=== PATIENT | male | born 1945 | race Caucasian/White ===

== ENCOUNTER 2017-06-05 11:23 | Outpatient (CLI) | payer OTHER, MEDICARE | END 2017-06-05 11:24 | disposition home or self-care (01) | LOC: BICRAD 11:23 | PROVIDERS: ATTEND Internal Medicine Cardiovascular Disease | DX: J90 Pleural effusion, not elsewhere classified (principal) | CPT/HCPCS: 71046 ==

== ENCOUNTER 2018-01-02 13:11 | Outpatient (CLI) | payer MEDICARE, OTHER ==
--- NOTE | 2018-01-02 15:15 | RAD ---
CHEST TWO VIEWS: 01/02/18 HISTORY: Dyspnea. COMPARISON: 06/05/17 FINDINGS: The cardiac silhouette remains enlarged. Pulmonary vasculature are unremarkable. Bilateral pleural fl uid, right greater than left, is similar in appearance to the previous exam. Mediastinum is midline. Lungs are hyperinflated. No evidence of pneumothorax. IMPRESSION: Cardiomegaly. Bilateral pleural fluid. Stable. COPD. POS: [facility]
== END 2018-01-02 13:12 | disposition home or self-care (01) ==
LOC: RAD 13:11
PROVIDERS: ATTEND Internal Medicine Pulmonary Disease
DX: R06.00 Dyspnea, unspecified (principal); I51.7 Cardiomegaly
CPT/HCPCS: 71046

== ENCOUNTER 2018-01-19 10:34 | Inpatient (IN) | payer MEDICARE ==
[2018-01-19 11:15] LABS: #Lymphocytes 0.7 thou/uL (1.20-3.40); #Monocytes 0.9 thou/uL (0.11-0.59); #Neutrophils 10.7 thou/uL (1.40-6.50); %Lymphocytes 5.4 % (21.0-51.0); %Monocytes 7.2 % (0.0-10.0); %Neutrophils 87.4 % (42.0-75.0); Hemoglobin 11.4 g/dL (14.0-18.0); Mean Corpuscular HGB CONC 31.1 g/dL (32.0-36.0); Mean Corpuscular Hemoglobin 29.1 pg (27.0-31.0); Mean Corpuscular Volume 93.6 fL (78.0-98.0); Mean Platelet Volume 7.2 fL (7.4-10.4); Platelet Count 357 thou/uL (130-400); RBC Distribution Width 12.5 % (11.5-14.5); Red Blood Cell (RBC) Count 3.91 mill/uL (4.70-6.10); White Blood Cell (WBC) Count 12.2 thou/uL (4.8-10.8)
--- NOTE | 2018-01-19 11:21 | RAD ---
CHEST ONE VIEW: HISTORY: Dyspnea. COMPARISON: 01/02/2018 FINDINGS: The cardiac silhouette is magnified, enlarged, and partially obscured by bilateral pleural fluid and bibasilar atelectasis that has increased since the prior exam. The mediastinum is midline. The pulm onary vasculature is engorged. No evidence of pneumothorax. IMPRESSION: Increasing pleural fluid and basilar atelectasis, right greater than left. POS: [facility]
[2018-01-19 11:41] LABS: ALT (SGPT) 11 U/L (8-55); AST (SGOT) 14 U/L (5-34); Albumin 3.1 g/dL (3.4-4.8); Alkaline Phosphatase 85 U/L (40-150); Anion Gap 14 mmol/L (10-20); BUN (Urea Nitrogen) 42 mg/dL (8.4-25.7); Bilirubin, Total 1.3 mg/dL (0.2-1.2); CK (CPK) 22 U/L (30-200); CKMB 1.8 ng/mL (0-6.6); Calc. Creatinine Clearance 0 mL/min (70-130); Calcium 9.4 mg/dL (7.8-10.44); Carbon Dioxide 31 mmol/L (23-31); Chloride 99 mmol/L (98-107); Estimated GFR-MDRD 71; Globulin 3.8 g/dL (2.4-3.5); Glucose 120 mg/dL (80-115); Potassium 4.1 mmol/L (3.5-5.1); Protein, Total 6.9 g/dL (5.8-8.1)
[2018-01-19 11:49] LABS: Troponin I 0.311 ng/mL (< 0.028)
[2018-01-19 11:57] LABS: Sodium 140 mmol/L (136-145)
[2018-01-19] MEDS ORDERED: Ondansetron ODT 4 MG TAB SL PRN (12:00)
[2018-01-19] MEDS ORDERED: Ondansetron HCl/PF 4 MG/2 ML Vial IVP PRN ×2 (12:00→15:39)
[2018-01-19] MEDS ORDERED: Acetaminophen 325 MG TAB PO PRN (12:00)
--- NOTE | 2018-01-19 13:41 | HP ---
PRIMARY CARE PHYSICIAN: Dr. Obi Silva REASON FOR ADMISSION: Elevated troponin, right pleural effusion. HISTORY OF PRESENT ILLNESS: A 72-year-old male who has underlying history of cardiomyopathy. In our hospital system last echocardiography was done in 2016 which showed EF 25-30%. The patient reports that this year he had echocardiography at Cardiology office, but he does not know the result, but he thinks that his heart is doing good. For the last one week he has increasing shortness of breath. He has increasing sore throat. He is c oughing white sputum. 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 The patient was supposed to see Cardiolo gy yesterday, but he was not able to go to the office because of sickness. For last one week he is not able to eat because of sore throat. He is feeling scratchy throat. He i s having cough productive of white sputum. He denies any chest pain, pleurisy. He denies any edema of leg. He does have chronic orthopnea. He does have chronic dyspnea on exertion. He lost a signif icant amount of weight over the last few months. He does have very poor appetite. He denies any age appropriate cancer screening. He lives alone by himself. He is driving. He is able to make food and do daily activities by himsel f. He denies any fever. He denies any bodyaches, malaise or arthralgia. He denies any sick exposur e. He denies any recent travel. He denies any hemoptysis. He denies any calf tenderness, dizziness , syncope or near syncope. The patient was feeling more and more weak and that is why he decided to come to the emergency room t bo[place], he has leukocytosis with left shift. He has significantly abnormal troponin and his chest x-ra y showed increasing pleural fluid and bibasilar atelectasis. PAST MEDICAL HISTORY: The patient denies any previous cancer history. He has cardiomyopathy with EF 25-30%, hypertension. PAST SURGICAL HISTORY: Reviewed and negative. PAST PSYCHIATRIC HISTORY: Reviewed and negative. SOCIAL HISTORY: The patient drinks beer occasionally, but based on previous record, he was drinking 5 beers on a daily basis, but he currently denies to me. He also denies any smoking to me as well, b ut based on previous record, he has smoking history. He is single and lives alone. ALLERGIES: No known drug allergy. CURRENT HOME MEDICATIONS: The patient did not bring any home medication, so unable to review at this point, but based on previous discharge summary, the patient was on following medications; Lasix 40 m g p.o. daily, Coreg 12.5 mg 3 times daily, lisinopril 5 mg p.o. daily, aspirin 81 mg p.o. daily. REVIEW OF SYSTEMS: The following complete review of systems was negative, unless otherwise mentioned in the HPI or below: Constitutional: Weight loss or gain, ability to conduct usual activities. Skin: Rash, itching. Eyes: Double vision, pain. ENT/Mouth: Nose bleeding, neck stiffness, pain, tenderness. Cardiovascular: Palpitations, dyspnea on exertion, orthopnea. Respiratory: Shortness of breath, wheezing, cough, hemoptysis, fever or night sweats. Gastrointestinal: Poor appetite, abdominal pain, heartburn, nausea, vomiting, constipation, or diarrhea. Genitourinary: Urgency, frequency, dysuria, nocturia. Musculoskeletal: Pain, swelling. Neurologic/Psychiatric: Anxiety, depression. Allergy/Immunologic: Skin rash, bleeding tendency. Please see my HPI for pertinent positive and negative. All other review of systems reviewed and nega tive except as mentioned in the HPI. FAMILY HISTORY: Mother from multiple medical problems, no strong family history of premature co ronary artery disease, stroke or cancer. EMERGENCY ROOM COURSE: The patient is given aspirin and DuoNeb therapy. PHYSICAL EXAMINATION: VITAL SIGNS: Currently, blood pressure 95/50, pulse 87, respiratory rate 17, temperature 98.1, satur ation 99% on 2 liter oxygen, weight 50 kilograms. GENERAL: The patient is currently cachectic, emaciated. HEENT: Head; normocephalic, atraumatic. Eyes shrunken eyeballs. ENT: Oropharynx within normal limits. Pharyngeal erythema noted. No exudate. NECK: Supple, no JVD, no thyromegaly. LUNGS: Right-sided air entry reduced with rales. CARDIAC: S1, S2 appears regular without any significant murmur. ABDOMEN: Soft, bowel sounds present, nontender, nondistended. No organomegaly, no mass. Scaphoid a bdomen. BACK: Unremarkable, no CVA tenderness. EXTREMITIES: Upper extremities; passive movement of all joints are normal. Lower extremities; passi ve movement of all joints are normal. No edema. Good distal pulsation. SKIN: No skin rash. HEMATOLOGICAL: No lymphadenopathy. PSYCHIATRIC: Normal affect. NEUROLOGIC: Nonfocal examination. SIGNIFICANT LABORATORY DATA: EKG showing first degree AV block, incomplete right bundle branch block pattern, nonspecific ST-T changes. Chest x-ray showing increasing pleural fluid and bibasilar atele ctasis, right greater than left. CBC: WBC 12.2, hemoglobin 11.4, platelet 357. BMP: Sodium 140, potassium 4.1, chloride 99, carbon dioxide 31, anion gap 14, BUN 42, creatinine 1.04, glucose 120, calcium 9.4. LFTs: AST 14, ALT 11, alkaline phosphatase 85, albumin 3.1. CK 22, CK-MB 1.8, troponin I 0.311. ASSESSMENT AND PLAN: 1. Dyspnea. At this point, suspected for acute on chronic systolic heart failure as well as associa teri underlying bibasilar pneumonia. The patient has cough. He has leukocytosis and bibasilar atelec tasis on x-ray concerning for pneumonia. He also has increasing pleural fluid consistent with previo us history of cardiomyopathy. At this point, we will treat him for pneumonia as well as congestive h eart failure. He does not have any significant fluid overload status clinically. We will consult pu lmonologist as well as manual lathe machinist for evaluation and to determine etiology of dyspnea will check BN P. Echocardiography 2. Elevated troponin, likely due to demand ischemia. We will do serial cardiac enzymes x3. Echocar diography will be obtained. Cardiology will be consulted and we will continue aspirin [address] 3. Chronic systolic heart failure, stage 3, NYHA stage 3. At this point, the patient has acute exac erbation. Echocardiography will be obtained. We will give him gentle diuretic therapy. Uric acid, magnesium and phosphorus level will be checked. We will closely monitor on telemetry floor. Cardiol jay will be consulted. 4. Protein calorie malnutrition, severe with cachexia. Etiology uncertain, but suspecting poor nutr itional insufficiency. We will check B12, folate, and we will provide nutritional supplement while i n hospital. 5. Deep venous thrombosis prophylaxis. Lovenox 30 mg subcutaneously daily. 6. Gastrointestinal prophylaxis, Pepcid 20 mg p.o. b.i.d. 7. CODE STATUS: The patient is FULL CODE. Patient's sister is surrogate decision maker. Disposition plan based on clinical course. We are expecting patient's stay in hospital more than 2 m idnights. Based on echocardiographic finding, we will decide whether this patient needs any further ischemic evaluation as well as AICD evaluation and Cardiology already consulted for that.
[2018-01-19 14:51] LABS: Troponin I 0.474 ng/mL (< 0.028)
[2018-01-19] MEDS ORDERED: Sodium Chloride 0.65% Nasal 44 ML BOT EA NARE PRN (15:39)
[2018-01-19] MEDS ORDERED: Calcium Carbonate 500 MG ChewTAB PO PRN (15:39)
[2018-01-19] MEDS ORDERED: Artificial Tears 18 DROP/0.9 ML EA EYE PRN (15:39)
[2018-01-19] MEDS ORDERED: Zolpidem Tartrate 5 MG TAB PO PRN (15:39)
[2018-01-19] MEDS ORDERED: Bisacodyl 10 MG SUPP PR PRN (15:39)
[2018-01-19] MEDS ORDERED: Ondansetron ODT 4 MG TAB PO PRN (15:39)
[2018-01-19] MEDS ORDERED: Diabetic Tussin 200 MG/10 ML UDCUP PO PRN (15:39)
[2018-01-19] MEDS ORDERED: Eucerin (Mineral Oil/Petrolatum,White) 30 gm Jar TOP PRN (15:39)
[2018-01-19] MEDS ORDERED: Bisacodyl 5 MG TAB PO PRN (15:39)
[2018-01-19] MEDS ORDERED: HYDROcodone/Acetaminophen 5/325 mg Tablet PO PRN (15:39)
[2018-01-19] MEDS ORDERED: hydrALAZINE 20 MG/ML VIAL SLOW IVP PRN (15:39)
[2018-01-19] MEDS ORDERED: Loperamide HCl 2 MG CAP PO PRN (15:39)
[2018-01-19 18:16] LABS: Troponin I 0.662 ng/mL (< 0.028)
[2018-01-19] MEDS: methylPREDNISolone Sod Succ/PF 125 MG/2 ML VIAL IVP SCH ×2 (18:56→23:50)
[2018-01-19] MEDS: Famotidine 20 MG TAB PO SCH (20:57)
[2018-01-19] MEDS ORDERED: Sodium Chloride 0.9% 500 ML IVPB SCH (22:00)
[2018-01-19] MEDS: Carvedilol 3.125 MG TAB PO SCH (22:33)
--- NOTE | 2018-01-19 23:07 | CON ---
DATE OF CONSULTATION: 01/19/2018 HISTORY OF PRESENT ILLNESS: A 72-year-old cachectic gentleman was seen in the office in the past, in fact no more than 2 weeks ago. X-ray at that time showed bilateral pleural effusion, right greater than left. Apparently, not worse than before. He presents now with shortness of breath, cough, no chest pain . He can barely walk 50 feet without getting marked short of breath. He has known history of congestiv e heart failure. PAST MEDICAL HISTORY: Pertinent mainly for his congestive heart failure symptoms. Ejection fraction to be decreased for years. PREVIOUS SURGERIES: None. TOBACCO: Noted former smoker. ALCOHOL: Minimal. MEDICATIONS: List of medicine from home includes Zestril 5, Lasix 40 and Coreg 6.25. REVIEW OF SYSTEMS: Otherwise, 10-point negative. PHYSICAL EXAMINATION: GENERAL: Cachectic gentleman in mild distress. VITAL SIGNS: Sats are 92%, respiration rate 18, temperature 98, blood pressure 80/51. CHEST: Decreased breath sounds, no wheezing. CARDIAC: Normal S1, S2, no gallops. ABDOMEN: Soft. No masses. LABORATORY DATA: White count 12,000, hemoglobin and hematocrit 11 and 36, platelet count is 357. So dium 140. Troponin is elevated. BUN and creatinine of 42 and 1.0. His BNP was not ordered, but he had an echo done. IMPRESSION: 1. Bilateral pleural effusions secondary to congestive heart failure and former smoker. 2. Cachexia. PLAN: 1. I agree with cardiac care. 2. Diuretics, lisinopril, Lasix. 3. Started on empiric antibiotics. I do not see any evidence of any infection, though we will follo w. At this stage, no need to do a thoracentesis. 4. I will start him on empiric neb treatments. 5. Low dose steroids. We will follow. Consultation note is 70 minutes, 50% in direct patient care.
[2018-01-19 23:43] LABS: Critical Call Chem Troponin I RESULT DECREASING; Troponin I 0.624 ng/mL (< 0.028)
--- NOTE | 2018-01-20 02:52 | CON ---
DATE OF CONSULTATION: 01/19/2018 INDICATION FOR CONSULTATION: A 72-year-old patient with COPD and CHF exacerbation. HISTORY OF PRESENT ILLNESS: This very unfortunate 72-year-old gentleman who has a history of severe cardiomyopathy. His most recent echocardiogram was less than 6 months ago which showed ejection frac tion 25-30%, which has been relatively stable for the last couple of years. He has had discussions a bout AICD and he has refused to accept this. He also, I believe, has been suggested that he undergo cardiac catheterization again. He also has chronic bilateral pleural effusions. At this time, he ag ain presented after he has had a recent sore throat and increasing shortness of breath with coughing. He said he actually has a rapid respiratory rate but did not have home O2. His oxygen level has be en relatively good. When he last saw Dr. Schreiber in the office, his O2 saturations were in the high 90s and he has had no significant problems otherwise and is not on home O2. He lives alone. He still m anages to take care of himself. He denied any other significant problems. He did smoke in the past, but stopped a couple of years ago, but otherwise was doing relatively well. He also drank heavily i n the past. He no longer drinks or smokes. He does have a history of hypertension. He has had some problems with edema in the past in the lower extremities, but he has no edema at this time. He main ly is just complaining of the shortness of breath. He also has what appears to be significant periph eral vascular disease. PAST MEDICAL HISTORY: Significant for the cardiomyopathy, hypertension, COPD, bilateral pleural effu sions. SOCIAL HISTORY: He lives alone. He had a drink in the past relatively heavy as well as tobacco abus e, but he no longer does this. He just retired earlier this year from . ALLERGIES: None. MEDICATIONS: Include Lasix 40 mg a day, lisinopril 5 mg a day, aspirin 81 mg a day, and Coreg 12.5 m g 3 times a day prior to him being admitted to the hospital. At this time, he has been placed on ant ibiotics. He is on Coreg 3.125 mg b.i.d. as well as vitamins, Lovenox at a DVT prophylaxis dose. He is on Pepcid, Folvite, IV Lasix 20 mg, albuterol, ipratropium inhaler, lisinopril 2.5 mg a day, mult ivitamins, Tylenol and p.r.n. medications. He is also just taking p.r.n. medications other than the ones that have already been written there. For his other past medical history, social history, family history and review of systems, please refe r to the notes dictated by the nurse practitioner. PHYSICAL EXAMINATION: GENERAL: Reveals an elderly, emaciated patient who appears to be very cachectic. VITAL SIGNS: His blood pressure is 85/51. O2 saturation 99%. He is on 2 liters, respiratory rate i s 18, heart rate is 75 shows a normal sinus rhythm. He is afebrile. HEENT: Shows head to be normocephalic and atraumatic. He has poor dentition. Carotid pulses are pr esent. I did not hear any significant bruits. LUNGS: His chest has decreased breath sounds throughout, but did not hear rales, rhonchi or wheezing . CARDIOVASCULAR: Exam reveals a regular rate at this time. He has a soft murmur at the apex. He als o has a very soft systolic murmur at the upper sternal border. ABDOMEN: Soft and nontender. The abdominal aorta is easily palpable. Femoral pulses are decreased. He has a right femoral bruit. The left femoral pulse is barely palpable. I do not hear a bruit bu t most likely significant decreased flow. Popliteal pulses are extremely difficult to palpate. I ca nnot palpate pedal pulses. NEUROLOGICAL: He appears to be intact. He appears to have normal strength and tone, but again is ve ry weak and emaciated. SKIN: Warm and dry. DIAGNOSTIC DATA: His EKG showed a sinus rhythm. There were no acute changes noted. He has decrease d R-wave progression in V1 through V3 as well as in II, III, and AVF. Q-waves and most likely associated with previous myocardial infarctions. LABORATORY DATA: Shows a hemoglobin of 11.4, WBC of 12.2. Troponin I is 0.3 and has increased up to 0.662. BNP is 2681. His creatinine is 1.04, potassium 4.1. IMAGING: Chest x-ray showed bilateral pleural effusions which are unchanged from previous chest x-ra ys in the past. IMPRESSION: 1. Congestive heart failure exacerbation which most likely was exacerbated by a community-acquired p neumonia. The BNP is elevated and certainly diuretics will be acceptable; however, we will need to b e very careful since his blood pressure is extremely low. He may need to be placed on dopamine in or montez to increase the blood pressure. 2. Bilateral pleural effusions and chronic obstructive pulmonary disease which is ongoing process in this gentleman and is not a new finding. 3. Abnormal cardiac enzymes. This may be a reflection of demand ischemia associated with his conges tive heart failure exacerbation as well as his chronic obstructive pulmonary disease. For his underl nando coronary artery disease, he may certainly be a candidate to have underlying coronary artery dise ase and would not be out of line for this gentleman. A cardiac catheterization has been discussed in the past. 4. Cardiomyopathy with severe decrease in left ventricular systolic function. He has refused an AIC D in the past. We will repeat the echocardiogram for further evaluation and see whether or not the e jection fraction has deteriorated further. We will continue to follow the patient with you. Further care of the patient will depend on his progress while in the hospital and how he responds to medical treatment. Please note he did have a stress test in 2016, which showed an ejection fraction at that time of 34, but no evidence of reversible ischemia.
[2018-01-20] MEDS: methylPREDNISolone Sod Succ/PF 125 MG/2 ML VIAL IVP SCH (05:42)
[2018-01-20 06:27] LABS: ALT (SGPT) 9 U/L (8-55); AST (SGOT) 18 U/L (5-34); Albumin 2.7 g/dL (3.4-4.8); Alkaline Phosphatase 80 U/L (40-150); Anion Gap 10 mmol/L (10-20); BUN (Urea Nitrogen) 50 mg/dL (8.4-25.7); Calc. Creatinine Clearance 39 mL/min (70-130); Calcium 8.9 mg/dL (7.8-10.44); Carbon Dioxide 33 mmol/L (23-31); Chloride 100 mmol/L (98-107); Estimated GFR-MDRD 58; Globulin 3.4 g/dL (2.4-3.5); Glucose 190 mg/dL (80-115); Magnesium 1.9 mg/dL (1.6-2.6); Potassium 3.8 mmol/L (3.5-5.1); Protein, Total 6.1 g/dL (5.8-8.1); Sodium 139 mmol/L (136-145); Uric Acid 11.9 mg/dL (3.5-7.2)
[2018-01-20 06:37] LABS: #Lymphocytes 0.5 thou/uL (1.20-3.40); #Monocytes 0.1 thou/uL (0.11-0.59); #Neutrophils 9.6 thou/uL (1.40-6.50); %Basophils 0.1 % (0.0-1.0); %Lymphocytes 4.8 % (21.0-51.0); %Monocytes 1.4 % (0.0-10.0); %Neutrophils 93.7 % (42.0-75.0); Hemoglobin 9.8 g/dL (14.0-18.0); Mean Corpuscular HGB CONC 29.8 g/dL (32.0-36.0); Mean Corpuscular Hemoglobin 27.8 pg (27.0-31.0); Mean Corpuscular Volume 93.3 fL (78.0-98.0); Mean Platelet Volume 7.2 fL (7.4-10.4); Platelet Count 344 thou/uL (130-400); RBC Distribution Width 12.4 % (11.5-14.5); Red Blood Cell (RBC) Count 3.54 mill/uL (4.70-6.10); White Blood Cell (WBC) Count 10.3 thou/uL (4.8-10.8)
--- NOTE | 2018-01-20 07:16 | PDOC.EVN ---
Event Note - Event Note Event Note: I was called to evaluate patient who was admitted for acute on chronic CHF. Per nursing staff patient BP systolic has been high 80's but now at 70's systolic. Evaluated patient. Patient is not in acute distress. Alert and oriented. Lungs are clear to auscultation. heart sounds are within normal limits. Assessment and plan: Hypotensive-- 500cc bolus of fluids ordered. instructed nurse to recheck BP. if BP is below 90's then we will get dopamine and transition patient to levophed when central line is place and send patient to ICU. For now we will continue to monitor the patient until the 500cc is given.
[2018-01-20] MEDS: Enoxaparin Sodium 30 MG/0.3 ML SYRINGE SC SCH (08:58)
[2018-01-20] MEDS: Multivitamin W/ Minerals 1 TAB PO SCH (08:59)
[2018-01-20] MEDS: Lisinopril 2.5 MG TAB PO SCH (09:00)
[2018-01-20] MEDS ORDERED: Furosemide 20 MG/2 ML VIAL SLOW IVP SCH (09:00)
[2018-01-20] MEDS: Aspirin 81 mg Enteric Coated Tablet PO SCH (09:01)
[2018-01-20] MEDS: Famotidine 20 MG TAB PO SCH ×2 (09:01→21:20)
[2018-01-20] MEDS: Cyanocobalamin (Vitamin B-12) 1,000 MCG TAB PO SCH (09:01)
[2018-01-20] MEDS: Allopurinol 100 MG TAB PO SCH (09:01)
[2018-01-20] MEDS: Carvedilol 3.125 MG TAB PO SCH ×2 (09:01→21:19)
[2018-01-20] MEDS: Folic Acid 1 MG TAB PO SCH (09:01)
--- NOTE | 2018-01-20 10:00 | PDOC.PN ---
- Subjective Encounter Start Date: 01/20/18 Encounter Start Time: 07:20 -: old records requested/rev he feels better this morning, he tells me that he was able to go to bathroom, no dizziness last night he was hypotensive and required bolus fluid - Objective Resuscitation Status: Resuscitation Status FULL:Full Resuscitation MAR Reviewed: Yes Vital Signs & Weight: Vital Signs (12 hours) Temp Pulse Resp BP Pulse Ox 01/20/18 09:00 67 01/20/18 08:34 100 01/20/18 08:29 67 20 100 01/20/18 08:00 97.5 F L 75 18 91/50 L 100 01/20/18 03:37 98.1 F 76 20 100 01/20/18 00:51 98 01/19/18 22:40 104/48 L Weight Admit Weight 104 lb 12.8 oz Weight 108 lb 12.8 oz I&O: 01/19/18 01/20/18 01/21/18 06:59 06:59 06:59 Intake Total 240 Balance 240 Result Diagrams: 01/20/18 05:39 01/20/18 05:39 EKG Reviewed by me: Yes (nsr) Phys Exam - Physical Examination Constitutional: NAD cachectic HEENT: PERRLA, moist MMs, sclera anicteric Neck: no JVD, supple Respiratory: no wheezing, no rhonchi reduced air entry both base Cardiovascular: RRR, no significant murmur, no rub Gastrointestinal: soft, non-tender, no distention, positive bowel sounds Musculoskeletal: no edema, pulses present Neurological: non-focal, normal sensation, moves all 4 limbs Lymphatic: no nodes Psychiatric: normal affect, A&O x 3 Skin: no rash, normal turgor Dx/Plan (1) Acute on chronic systolic ACC/AHA stage C congestive heart failure Code(s): I50.23 - ACUTE ON CHRONIC SYSTOLIC (CONGESTIVE) HEART FAILURE Status : Acute (2) Demand ischemia of myocardium Code(s): I24.8 - OTHER FORMS OF ACUTE ISCHEMIC HEART DISEASE Status: Acute (3) Hyperuricemia Code(s): E79.0 - HYPERURICEMIA W/O SIGNS OF INFLAM ARTHRIT AND TOPHACEOUS DIS Status: Acute (4) Pleural effusion Code(s): J90 - PLEURAL EFFUSION, NOT ELSEWHERE CLASSIFIED Status: Chronic (5) Hypotension Status: Acute (6) Protein-calorie malnutrition, severe Code(s): E43 - UNSPECIFIED SEVERE PROTEIN-CALORIE MALNUTRITION Status: Chronic - Plan cont current plan of care, continue antibiotics, PT/OT * today echo pending * if he has persistent hypotension, then he will not be able to get his meds, will wait for echo result and then cardio to decide if dobutamine will help to improve diuresis * will hold BP meds for SBP <120 * cardiology and pulmonary recommendation noted * this admission may need ischemic and AICD evaluation if very low EF * medication reviewed as below * symptomatic treatment * continue nutritional support. Review of Systems - Review of Systems Constitutional: weakness. negative: fever, chills, sweats, malaise, other Respiratory: Shortness of Breath. negative: Cough, Dry, Hemoptysis, SOB with Excertion, Pleuritic Pain, Sputum, Wheezing Cardiovascular: negative: chest pain, palpitations, orthopnea, paroxysmal nocturnal dyspnea, edema, light headedness, other Gastrointestinal: negative: Nausea, Vomiting, Abdominal Pain, Diarrhea, Constipation, Melena, Hematochezia, Other Genitourinary: negative: Dysuria, Frequency, Incontinence, Hematuria, Retention , Other Musculoskeletal: negative: Neck Pain, Shoulder Pain, Arm Pain, Back Pain, Hand Pain, Leg Pain, Foot Pain, Other Skin: negative: Rash, Lesions, Jorge, Bruising, Other - Medications/Allergies Allergies/Adverse Reactions: Allergies Allergy/AdvReac Type Severity Reaction Status Date / Time No Known Drug Allergies Allergy Verified 01/19/18 17:16 Medications: Current Medications Acetaminophen (Tylenol) 650 mg PO Q4H PRN PRN Reason: Headache/Fever/Mild Pain (1-3) Hydrocodone Bitart/Acetaminophen (Brilliant 5/325) 1 tab PO Q4H PRN PRN Reason: Moderate Pain (4-6) Albuterol/Ipratropium (Duoneb) 3 ml NEB [id number] [facility] Last Admin: 01/20/18 08:29 Dose: 3 ml Allopurinol (Zyloprim) 100 mg PO DAILY [facility] Last Admin: 01/20/18 09:01 Dose: 100 mg Artificial Tears (Tears Naturale) 2 drop EA EYE PRN PRN PRN Reason: Dry Eyes Aspirin (Ecotrin) 81 mg PO DAILY [facility] Last Admin: 01/20/18 09:01 Dose: 81 mg Bisacodyl (Dulcolax) 10 mg PO DAILYPRN PRN PRN Reason: Constipation Bisacodyl (Dulcolax) 10 mg MS DAILYPRN PRN PRN Reason: Constipation Calcium Carbonate (Tums) 1,000 mg PO Q4H PRN PRN Reason: Heartburn or Indigestion Carvedilol (Coreg) 3.125 mg PO BID [facility] Last Admin: 01/20/18 09:01 Dose: Not Given Cyanocobalamin (Vitamin B-12) 1,000 mcg PO DAILY [facility] Last Admin: 01/20/18 09:01 Dose: 1,000 mcg Enoxaparin Sodium (Lovenox) 30 mg SC 0900 [facility] Last Admin: 01/20/18 08:58 Dose: 30 mg Famotidine (Pepcid) 20 mg PO BID [facility] Last Admin: 01/20/18 09:01 Dose: 20 mg Folic Acid (Folvite) 1 mg PO DAILY [facility] Last Admin: 01/20/18 09:01 Dose: 1 mg Furosemide (Lasix) 20 mg SLOW IVP DAILY [facility] Last Admin: 01/20/18 09:02 Dose: 20 mg Guaifenesin (Robitussin Sf) 200 mg PO Q4H PRN PRN Reason: Cough Hydralazine HCl (Apresoline) 10 mg SLOW IVP Q4H PRN PRN Reason: SBP > 180 and HR < 70 Levofloxacin 500 mg/ Device 100 mls @ 100 mls/hr IVPB 1600 [facility] Last Admin: 01/19/18 18:56 Dose: 100 mls Iron/Minerals/Multivitamins (Theragran M) 1 tab PO DAILY [facility] Last Admin: 01/20/18 08:59 Dose: 1 tab Lisinopril (Zestril) 2.5 mg PO DAILY [facility] Last Admin: 01/20/18 09:00 Dose: Not Given Loperamide HCl (Imodium) 2 mg PO PRN PRN PRN Reason: Diarrhea/Loose Stools Methylprednisolone Sodium Succinate (Solu-Medrol) 40 mg IVP Q6HR [facility] Last Admin: 01/20/18 05:42 Dose: 40 mg Mineral Oil/White Petrolatum (Eucerin Cream) 0 gm TOP BIDPRN PRN PRN Reason: Dry Skin Ondansetron HCl (Zofran Odt) 4 mg PO Q6H PRN PRN Reason: Nausea/Vomiting Ondansetron HCl (Zofran) 4 mg IVP Q6H PRN PRN Reason: Nausea/Vomiting Sodium Chloride ([place]air Nasal [place] 0.65%) 0 ml EA NARE QIDPRN PRN PRN Reason: Nasal Congestion Zolpidem Tartrate (Ambien) 5 mg PO HSPRN PRN PRN Reason: Insomnia
--- NOTE | 2018-01-20 12:50 | PDOC.CTH ---
<Sophie Branch - Last Filed: 01/20/18 12:53> Cardiology Progress Note - Subjective The pt seen and examined. No overnight events. No cardiac complaints. He denied dizziness or lightheadedness with low BP today when he walked to bathroom. - Objective Vital Signs Temp Pulse Resp BP Pulse Ox 01/20/18 09:00 67 01/20/18 08:34 100 01/20/18 08:29 67 20 100 01/20/18 08:00 97.5 F L 75 18 91/50 L 100 01/20/18 03:37 98.1 F 76 20 100 01/20/18 00:51 98 Admit Weight 104 lb 12.8 oz Weight 108 lb 12.8 oz 01/19/18 01/20/18 01/21/18 06:59 06:59 06:59 Intake Total 240 Balance 240 - Physical Examination General/Neuro: alert & oriented x3 Neck: no JVD present Lungs: other: (very diminished at bases) Heart: RRR Abdomen: soft Extremities: other: (No edema) - Telemetry Telemetry Rhythm: SR 60s - Labs Result Diagrams: 01/20/18 05:39 01/20/18 05:39 Troponin/CKMB CK-MB (CK-2) 1.8 ng/mL (0-6.6) 01/19/18 11:07 Troponin I 0.624 ng/mL (< 0.028) H* 01/19/18 22:52 - Assessment/Plan 1. Acute on chronic systolic and diastolic HF - Respiratory status has improved with Lasix 20mg IV qd; On lowest dose bblocker and CHRISTOPHER. another Echo was taken today and the result is pending at this time. 2. 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 CMY - The pt has refused AICD in past. Will discuss options with the pt when he is stable 4. Hypotension - stable 5. Malnutrition - MAR reviewed. * According to OV note from Dr Garcia's office, he has been on Coreg 12.5mg TID prior to this admission. Review of Systems - Review of Systems Constitutional: reports: no symptoms reported EENTM: reports: no symptoms reported Respiratory: reports: no symptoms reported Cardiac (ROS): reports: no symptoms reported ABD/GI: reports: no symptoms reported : reports: no symptoms reported Musculoskeletal: reports: no symptoms reported <Radha Correa - Last Filed: 01/21/18 00:16> Cardiology Progress Note - Objective Vital Signs Temp Pulse Pulse Pulse Pulse Resp BP 01/20/18 23:55 01/20/18 21:17 97.9 F 84 20 01/20/18 19:15 01/20/18 19:13 01/20/18 18:50 84 18 01/20/18 18:30 85 18 01/20/18 16:00 98 F 80 18 01/20/18 14:10 75 77 76 90/54 L 01/20/18 13:20 76 20 BP BP BP BP Pulse Ox Pulse Ox Pulse Ox 01/20/18 23:55 98 01/20/18 21:17 85/51 L 100 01/20/18 19:15 99 01/20/18 19:13 99 01/20/18 18:50 80/44 L 01/20/18 18:30 78/50 L 100 01/20/18 16:00 88/53 L 100 01/20/18 14:10 80/52 L 67/42 L 100 98 01/20/18 13:20 Admit Weight 104 lb 12.8 oz Weight 108 lb 12.8 oz 01/19/18 01/20/18 01/21/18 06:59 06:59 06:59 Intake Total 240 480 Balance 240 480 - Labs Result Diagrams: 01/20/18 05:39 01/20/18 05:39 Troponin/CKMB CK-MB (CK-2) 1.8 ng/mL (0-6.6) 01/19/18 11:07 Troponin I 0.624 ng/mL (< 0.028) H* 01/19/18 22:52 - Assessment/Plan Pt. seen and evaluated by me. I agree with the A/P by the FACILITY MAINTENANCE HELPER. We have discussed the pt. and the plan.Chest clear RRR. The BP has been low today. He did respond to IV fluids last PM. Echo: EF is 35-40%. LVH is present.Probable diastolic dysfunction. Mild TR/MR.
--- NOTE | 2018-01-20 13:56 | PRG ---
DATE OF SERVICE: 01/20/2018 SUBJECTIVE: This morning, he is doing better. He is less short of breath. OBJECTIVE: VITAL SIGNS: Saturations 100% on 2 liters, temperature 97, blood pressure . CHEST: Reveals decreased breath sounds bilaterally without any wheezing. CARDIAC: Normal S1, S2, no gallops. ABDOMEN: Soft, no masses. LABORATORY DATA: White count 10,000, H&H is 9 and 33, platelet count is normal. Creatinine is 1.24. IMPRESSION: Congestive heart failure, chronic obstructive pulmonary disease, severe deconditioning. PLAN: Continue present treatment. I would discontinue IV antibiotics, nothing to suspect ongoing __ ___ infection. Continue cardiac care.
[2018-01-20] MEDS ORDERED: Magnesium 2 GM/50 ML 2 GM in Premix Bag 1 BAG IVPB SCH (21:00)
--- NOTE | 2018-01-21 08:31 | EKG ---
Test Reason : SOB Blood Pressure : / mmHG Vent. Rate : 085 BPM Atrial Rate : 085 BPM P-R Int : 220 ms QRS Dur : 110 ms QT Int : 434 ms P-R-T Axes : 060 -83 092 degrees QTc Int : 516 ms Sinus rhythm with 1st degree A-V block /Baseline artifact Left axis deviation Incomplete right bundle branch block Inferior infarct , age undetermined Anteroseptal infarct , age undetermined Abnormal ECG Confirmed by ALIE CARLSON ([id number]) on 01/21/2018 8:30:56 AM Referred By: Confirmed By:ALIE CARLSON
[2018-01-21] MEDS: Aspirin 81 mg Enteric Coated Tablet PO SCH (08:40)
[2018-01-21] MEDS: Enoxaparin Sodium 30 MG/0.3 ML SYRINGE SC SCH (08:40)
[2018-01-21] MEDS: Folic Acid 1 MG TAB PO SCH (08:40)
[2018-01-21] MEDS: Cyanocobalamin (Vitamin B-12) 1,000 MCG TAB PO SCH (08:40)
[2018-01-21] MEDS: Allopurinol 100 MG TAB PO SCH (08:40)
[2018-01-21] MEDS: Multivitamin W/ Minerals 1 TAB PO SCH (08:40)
[2018-01-21] MEDS: Famotidine 20 MG TAB PO SCH ×2 (08:40→21:04)
[2018-01-21] MEDS: predniSONE 20 MG TAB PO SCH (08:40)
[2018-01-21] MEDS: Carvedilol 3.125 MG TAB PO SCH ×2 (08:41→21:04)
[2018-01-21] MEDS: Lisinopril 2.5 MG TAB PO SCH (08:41)
--- NOTE | 2018-01-21 10:03 | PDOC.PN ---
- Subjective Encounter Start Date: 01/21/18 Encounter Start Time: 07:20 Patient seen and examined. No new complaints. No overnight events - Objective Resuscitation Status: Resuscitation Status FULL:Full Resuscitation MAR Reviewed: Yes Vital Signs & Weight: Vital Signs (12 hours) Temp Pulse Pulse Pulse Pulse Resp BP 01/21/18 09:02 83 84 83 01/21/18 08:41 77 108/62 01/21/18 08:00 97.7 F 81 18 01/21/18 07:30 01/21/18 07:29 79 01/21/18 06:47 01/21/18 04:00 98.0 F 76 20 01/21/18 03:00 01/21/18 00:00 98.2 F 80 20 01/20/18 23:55 BP BP BP BP Pulse Ox Pulse Ox Pulse Ox 01/21/18 09:02 96/51 L 84/52 L 87/54 L 91 L 87 L 01/21/18 08:41 01/21/18 08:00 103/60 100 01/21/18 07:30 100 01/21/18 07:29 100 01/21/18 06:47 97/56 L 01/21/18 04:00 96/52 L 100 01/21/18 03:00 90/51 L 01/21/18 00:00 90/50 L 100 01/20/18 23:55 98 Pulse Ox 01/21/18 09:02 100 01/21/18 08:41 01/21/18 08:00 01/21/18 07:30 01/21/18 07:29 01/21/18 06:47 01/21/18 04:00 01/21/18 03:00 01/21/18 00:00 01/20/18 23:55 Weight Admit Weight 104 lb 12.8 oz Weight 115 lb 9.6 oz I&O: 01/20/18 01/21/18 01/22/18 06:59 06:59 06:59 Intake Total 240 480 Balance 240 480 Result Diagrams: 01/20/18 05:39 01/20/18 05:39 Additional Labs: Accuchecks 01/20/18 17:02 POC Glucose 190 H Radiology Reviewed by me: Yes (echo report noted) EKG Reviewed by me: Yes (nsr) Phys Exam - Physical Examination Constitutional: NAD cachectic HEENT: PERRLA, moist MMs, sclera anicteric Neck: no JVD, supple Respiratory: no wheezing, no rales, no rhonchi reduced air entry at base Cardiovascular: RRR, no significant murmur, no rub Gastrointestinal: soft, non-tender, no distention, positive bowel sounds Musculoskeletal: no edema, pulses present Neurological: non-focal, normal sensation, moves all 4 limbs Lymphatic: no nodes Psychiatric: normal affect, A&O x 3 Skin: no rash, normal turgor Dx/Plan (1) Acute on chronic systolic ACC/AHA stage C congestive heart failure Code(s): I50.23 - ACUTE ON CHRONIC SYSTOLIC (CONGESTIVE) HEART FAILURE Status : Acute (2) Demand ischemia of myocardium Code(s): I24.8 - OTHER FORMS OF ACUTE ISCHEMIC HEART DISEASE Status: Acute (3) Hyperuricemia Code(s): E79.0 - HYPERURICEMIA W/O SIGNS OF INFLAM ARTHRIT AND TOPHACEOUS DIS Status: Acute (4) Pleural effusion Code(s): J90 - PLEURAL EFFUSION, NOT ELSEWHERE CLASSIFIED Status: Chronic (5) Hypotension Status: Acute (6) Protein-calorie malnutrition, severe Code(s): E43 - UNSPECIFIED SEVERE PROTEIN-CALORIE MALNUTRITION Status: Chronic - Plan cont current plan of care * because of low BP, pt is not able to get meds, pt remains asymptomatic * medication reviewed as below * symptomatic treatment. Review of Systems - Review of Systems Eyes: negative: Pain, Vision Change, Conjunctivae Inflammation, Eyelid Inflammation, Redness, Other ENT: negative: Ear Pain, Ear Discharge, Nose Pain, Nose Discharge, Nose Congestion, Mouth Pain, Mouth Swelling, Throat Pain, Throat Swelling, Other Respiratory: Shortness of Breath, SOB with Excertion. negative: Cough, Dry, Hemoptysis, Pleuritic Pain, Sputum, Wheezing Cardiovascular: negative: chest pain, palpitations, orthopnea, paroxysmal nocturnal dyspnea, edema, light headedness, other Gastrointestinal: negative: Nausea, Vomiting, Abdominal Pain, Diarrhea, Constipation, Melena, Hematochezia, Other Genitourinary: negative: Dysuria, Frequency, Incontinence, Hematuria, Retention , Other Musculoskeletal: negative: Neck Pain, Shoulder Pain, Arm Pain, Back Pain, Hand Pain, Leg Pain, Foot Pain, Other - Medications/Allergies Allergies/Adverse Reactions: Allergies Allergy/AdvReac Type Severity Reaction Status Date / Time No Known Drug Allergies Allergy Verified 01/19/18 17:16 Medications: Current Medications Acetaminophen (Tylenol) 650 mg PO Q4H PRN PRN Reason: Headache/Fever/Mild Pain (1-3) Hydrocodone Bitart/Acetaminophen ([place] 5/325) 1 tab PO Q4H PRN PRN Reason: Moderate Pain (4-6) Albuterol/Ipratropium (Duoneb) 3 ml NEB [id number] [facility] Last Admin: 01/21/18 07:29 Dose: 3 ml Allopurinol (Zyloprim) 100 mg PO DAILY [facility] Last Admin: 01/21/18 08:40 Dose: 100 mg Artificial Tears (Tears Naturale) 2 drop EA EYE PRN PRN PRN Reason: Dry Eyes Aspirin (Ecotrin) 81 mg PO DAILY [facility] Last Admin: 01/21/18 08:40 Dose: 81 mg Bisacodyl (Dulcolax) 10 mg PO DAILYPRN PRN PRN Reason: Constipation Bisacodyl (Dulcolax) 10 mg [place] DAILYPRN PRN PRN Reason: Constipation Calcium Carbonate (Tums) 1,000 mg PO Q4H PRN PRN Reason: Heartburn or Indigestion Carvedilol (Coreg) 3.125 mg PO BID [facility] Last Admin: 01/21/18 08:41 Dose: Not Given Cyanocobalamin (Vitamin B-12) 1,000 mcg PO DAILY [facility] Last Admin: 01/21/18 08:40 Dose: 1,000 mcg Enoxaparin Sodium (Lovenox) 30 mg SC 0900 [facility] Last Admin: 01/21/18 08:40 Dose: 30 mg Famotidine (Pepcid) 20 mg PO BID [facility] Last Admin: 01/21/18 08:40 Dose: 20 mg Folic Acid (Folvite) 1 mg PO DAILY [facility] Last Admin: 01/21/18 08:40 Dose: 1 mg Guaifenesin (Robitussin Sf) 200 mg PO Q4H PRN PRN Reason: Cough Hydralazine HCl (Apresoline) 10 mg SLOW IVP Q4H PRN PRN Reason: SBP > 180 and HR < 70 Iron/Minerals/Multivitamins (Theragran M) 1 tab PO DAILY [facility] Last Admin: 01/21/18 08:40 Dose: 1 tab Levofloxacin (Levaquin) 500 mg PO 0600 [facility] Stop: 01/26/18 06:01 Last Admin: 01/21/18 05:33 Dose: 500 mg Lisinopril (Zestril) 2.5 mg PO DAILY [facility] Last Admin: 01/21/18 08:41 Dose: Not Given Loperamide HCl (Imodium) 2 mg PO PRN PRN PRN Reason: Diarrhea/Loose Stools Mineral Oil/White Petrolatum (Eucerin Cream) 0 gm TOP BIDPRN PRN PRN Reason: Dry Skin Ondansetron HCl (Zofran Odt) 4 mg PO Q6H PRN PRN Reason: Nausea/Vomiting Ondansetron HCl (Zofran) 4 mg IVP Q6H PRN PRN Reason: Nausea/Vomiting Prednisone (Prednisone) 20 mg PO QAM-[facility] Last Admin: 01/21/18 08:40 Dose: 20 mg Sodium Chloride ([place] Nasal [place] 0.65%) 0 ml EA NARE QIDPRN PRN PRN Reason: Nasal Congestion Zolpidem Tartrate (Ambien) 5 mg PO HSPRN PRN PRN Reason: Insomnia
--- NOTE | 2018-01-21 13:00 | PDOC.CTH ---
<Sophie Branch - Last Filed: 01/21/18 13:01> Cardiology Progress Note - Subjective The pt seen and examined. No overnight events. No cardiac complaints. Stated he can breath better than yesterday. Several episodes of SVT and VT overnight. - Objective Vital Signs Temp Pulse Pulse Pulse Pulse Resp BP 01/21/18 11:09 97.6 F 81 16 01/21/18 09:02 83 84 83 01/21/18 08:41 77 108/62 01/21/18 08:00 97.7 F 81 18 01/21/18 07:30 01/21/18 07:29 79 01/21/18 06:47 01/21/18 04:00 98.0 F 76 20 01/21/18 03:00 BP BP BP BP BP Pulse Ox Pulse Ox 01/21/18 11:09 99/58 L 99 01/21/18 09:02 96/51 L 84/52 L 87/54 L 91 L 01/21/18 08:41 01/21/18 08:00 103/60 100 01/21/18 07:30 100 01/21/18 07:29 100 01/21/18 06:47 97/56 L 01/21/18 04:00 96/52 L 100 01/21/18 03:00 90/51 L Pulse Ox Pulse Ox 01/21/18 11:09 01/21/18 09:02 87 L 100 01/21/18 08:41 01/21/18 08:00 01/21/18 07:30 01/21/18 07:29 01/21/18 06:47 01/21/18 04:00 01/21/18 03:00 Admit Weight 104 lb 12.8 oz Weight 115 lb 9.6 oz 01/20/18 01/21/18 01/22/18 06:59 06:59 06:59 Intake Total 240 480 Balance 240 480 - Physical Examination General/Neuro: alert & oriented x3 Neck: no JVD present Lungs: other: (diminished at bases) Heart: RRR Abdomen: soft Extremities: other: (No edema) - Labs Result Diagrams: 01/20/18 05:39 01/20/18 05:39 Troponin/CKMB CK-MB (CK-2) 1.8 ng/mL (0-6.6) 01/19/18 11:07 Troponin I 0.624 ng/mL (< 0.028) H* 01/19/18 22:52 - Assessment/Plan 1. Acute on chronic systolic and diastolic HF - Respiratory status has improved with Lasix 20mg IV qd; On lowest dose bblocker and CHRISTOPHER. 2. 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 CMY - The pt has refused AICD in past. Will discuss options with the pt when he is stable 4. Hypotension - stable; denied dizziness or lightheadedness. 5. Malnutrition - MAR reviewed. * Echo on 01/20/18: EF is 35-40%. LVH is present. Probable diastolic dysfunction. Mild TR/MR. Review of Systems - Review of Systems Constitutional: reports: no symptoms reported EENTM: reports: no symptoms reported Respiratory: reports: no symptoms reported Cardiac (ROS): reports: no symptoms reported ABD/GI: reports: no symptoms reported : reports: no symptoms reported Musculoskeletal: reports: no symptoms reported Skin: reports: no symptoms reported <Radha Correa - Last Filed: 01/21/18 22:33> Cardiology Progress Note - Objective Vital Signs Temp Pulse Resp BP Pulse Ox 01/21/18 20:15 97 01/21/18 20:00 97.6 F 79 15 104/59 L 97 01/21/18 19:59 97.6 F 79 14 104/59 L 97 01/21/18 18:58 96 01/21/18 18:57 96 01/21/18 15:41 97.8 F 77 18 112/61 99 01/21/18 13:59 78 20 98 01/21/18 11:09 97.6 F 81 16 99/58 L 99 Admit Weight 104 lb 12.8 oz Weight 115 lb 9.6 oz 01/20/18 01/21/18 01/22/18 06:59 06:59 06:59 Intake Total 240 480 480 Output Total 400 Balance 240 480 80 - Labs Result Diagrams: 01/20/18 05:39 01/20/18 05:39 Troponin/CKMB CK-MB (CK-2) 1.8 ng/mL (0-6.6) 01/19/18 11:07 Troponin I 0.624 ng/mL (< 0.028) H* 01/19/18 22:52 - Assessment/Plan Pt. seen and evaluated by me. I agree with the A/P by the RELAY TESTER. We have discussed the pt. and the plan.Chest clear RRR.
--- NOTE | 2018-01-21 14:34 | PRG ---
DATE OF SERVICE: 01/21/2018 SUBJECTIVE: This morning, he is better, he is less short of breath. His EF is 40%. OBJECTIVE: VITAL SIGNS: Sats 90% on room air, respiration 15, temperature 97, blood pressure 99/50. CHEST: Reveals no wheezing, no crackles. CARDIAC: Normal S1-S2. No gallops. ABDOMEN: Soft. No masses. IMPRESSION: Chronic obstructive pulmonary disease, congestive heart failure, pleural effusion, stabl e. pneumonia. he can be discharged home anytime. Follow up in my office in about a month.
[2018-01-22 07:08] LABS: #Lymphocytes 0.9 thou/uL (1.20-3.40); #Monocytes 0.9 thou/uL (0.11-0.59); #Neutrophils 6.3 thou/uL (1.40-6.50); %Basophils 0.1 % (0.0-1.0); %Eosinophils 0.4 % (0.0-10.0); %Lymphocytes 11.4 % (21.0-51.0); %Monocytes 10.8 % (0.0-10.0); %Neutrophils 77.3 % (42.0-75.0); Hemoglobin 10.5 g/dL (14.0-18.0); Mean Corpuscular HGB CONC 30.8 g/dL (32.0-36.0); Mean Corpuscular Hemoglobin 28.8 pg (27.0-31.0); Mean Corpuscular Volume 93.6 fL (78.0-98.0); Mean Platelet Volume 6.8 fL (7.4-10.4); Platelet Count 408 thou/uL (130-400); RBC Distribution Width 12.6 % (11.5-14.5); Red Blood Cell (RBC) Count 3.65 mill/uL (4.70-6.10); White Blood Cell (WBC) Count 8.1 thou/uL (4.8-10.8)
[2018-01-22 07:30] LABS: Anion Gap 7 mmol/L (10-20); BUN (Urea Nitrogen) 46 mg/dL (8.4-25.7); Calc. Creatinine Clearance 59 mL/min (70-130); Calcium 9.3 mg/dL (7.8-10.44); Carbon Dioxide 36 mmol/L (23-31); Chloride 98 mmol/L (98-107); Estimated GFR-MDRD 85; Glucose 109 mg/dL (80-115); Magnesium 2.3 mg/dL (1.6-2.6); Potassium 3.9 mmol/L (3.5-5.1); Sodium 137 mmol/L (136-145)
[2018-01-22 07:35] LABS: Phosphorus 1.7 mg/dL (2.3-4.7)
--- NOTE | 2018-01-22 07:48 | RAD ---
TWO VIEWS CHEST: HISTORY: Congestive heart failure. FINDINGS: PA and lateral views of the chest are obtained on 01/22/2018. Comparison is made to previous exam fr om 07/13/2015. Two views chest demonstrate cardiomegaly noted. Calcification and ectasia of the aorta seen. Bilate ral pleural effusions seen. Pulmonary vascular congestion is seen. Radiographic appearance of the chest is fairly stable, unchanged since the previous exam. No evidenc e of pneumothorax is seen. IMPRESSION: Bilateral pleural effusions as well as pulmonary vascular congestion and cardiomegaly. Findings comp atible with congestive heart failure. POS: JAIME
--- NOTE | 2018-01-22 08:41 | PDOC.PN ---
- Subjective Encounter Start Date: 01/22/18 Encounter Start Time: 07:20 Patient seen and examined. No new complaints. No overnight events - Objective Resuscitation Status: Resuscitation Status FULL:Full Resuscitation MAR Reviewed: Yes Vital Signs & Weight: Vital Signs (12 hours) Temp Pulse Resp BP Pulse Ox 01/22/18 07:42 97.8 F 88 13 106/63 97 01/22/18 04:00 97.8 F 77 16 112/62 94 L 01/21/18 23:46 95 Weight Admit Weight 104 lb 12.8 oz Weight 118 lb 8 oz I&O: 01/21/18 01/22/18 01/23/18 06:59 06:59 06:59 Intake Total 480 480 Output Total 400 Balance 480 80 Result Diagrams: 01/22/18 06:59 01/22/18 06:59 Additional Labs: Accuchecks 01/21/18 10:54 POC Glucose 145 H Radiology Reviewed by me: Yes (chest xray reviewed ) EKG Reviewed by me: Yes Phys Exam - Physical Examination Constitutional: NAD HEENT: PERRLA, moist MMs, sclera anicteric Neck: no JVD, supple Respiratory: no wheezing, no rhonchi reduced air entry both side Cardiovascular: RRR, no significant murmur, no rub Gastrointestinal: soft, non-tender, no distention, positive bowel sounds Musculoskeletal: no edema, pulses present Neurological: non-focal, normal sensation, moves all 4 limbs Psychiatric: normal affect, A&O x 3 Skin: no rash, normal turgor Dx/Plan (1) Acute on chronic systolic ACC/AHA stage C congestive heart failure Code(s): I50.23 - ACUTE ON CHRONIC SYSTOLIC (CONGESTIVE) HEART FAILURE Status : Acute (2) Demand ischemia of myocardium Code(s): I24.8 - OTHER FORMS OF ACUTE ISCHEMIC HEART DISEASE Status: Acute (3) Hyperuricemia Code(s): E79.0 - HYPERURICEMIA W/O SIGNS OF INFLAM ARTHRIT AND TOPHACEOUS DIS Status: Acute (4) Pleural effusion Code(s): J90 - PLEURAL EFFUSION, NOT ELSEWHERE CLASSIFIED Status: Chronic (5) Hypotension Status: Acute (6) Protein-calorie malnutrition, severe Code(s): E43 - UNSPECIFIED SEVERE PROTEIN-CALORIE MALNUTRITION Status: Chronic - Plan cont current plan of care, continue antibiotics * medication reviewed as below * symptomatic treatment * continue po levaquin and po prednisone for 5 days * continue diuresis and adjust meds as tolerated * high risk for readmission. Review of Systems - Review of Systems ENT: negative: Ear Pain, Ear Discharge, Nose Pain, Nose Discharge, Nose Congestion, Mouth Pain, Mouth Swelling, Throat Pain, Throat Swelling, Other Respiratory: SOB with Excertion. negative: Cough, Dry, Shortness of Breath, Hemoptysis, Pleuritic Pain, Sputum, Wheezing Cardiovascular: negative: chest pain, palpitations, orthopnea, paroxysmal nocturnal dyspnea, edema, light headedness, other Gastrointestinal: negative: Nausea, Vomiting, Abdominal Pain, Diarrhea, Constipation, Melena, Hematochezia, Other Genitourinary: negative: Dysuria, Frequency, Incontinence, Hematuria, Retention , Other Musculoskeletal: negative: Neck Pain, Shoulder Pain, Arm Pain, Back Pain, Hand Pain, Leg Pain, Foot Pain, Other - Medications/Allergies Allergies/Adverse Reactions: Allergies Allergy/AdvReac Type Severity Reaction Status Date / Time No Known Drug Allergies Allergy Verified 01/19/18 17:16 Medications: Current Medications Acetaminophen (Tylenol) 650 mg PO Q4H PRN PRN Reason: Headache/Fever/Mild Pain (1-3) Hydrocodone Bitart/Acetaminophen ([place] 5/325) 1 tab PO Q4H PRN PRN Reason: Moderate Pain (4-6) Albuterol/Ipratropium (Duoneb) 3 ml NEB [id number] Last Admin: 01/21/18 23:46 Dose: 3 ml Allopurinol (Zyloprim) 100 mg PO DAILY [facility] Last Admin: 01/21/18 08:40 Dose: 100 mg Artificial Tears (Tears Naturale) 2 drop EA EYE PRN PRN PRN Reason: Dry Eyes Aspirin (Ecotrin) 81 mg PO DAILY [facility] Last Admin: 01/21/18 08:40 Dose: 81 mg Bisacodyl (Dulcolax) 10 mg PO DAILYPRN PRN PRN Reason: Constipation Bisacodyl (Dulcolax) 10 mg [place] DAILYPRN PRN PRN Reason: Constipation Calcium Carbonate (Tums) 1,000 mg PO Q4H PRN PRN Reason: Heartburn or Indigestion Carvedilol (Coreg) 3.125 mg PO BID [facility] Last Admin: 01/21/18 21:04 Dose: Not Given Cyanocobalamin (Vitamin B-12) 1,000 mcg PO DAILY [facility] Last Admin: 01/21/18 08:40 Dose: 1,000 mcg Famotidine (Pepcid) 20 mg PO BID [facility] Last Admin: 01/21/18 21:04 Dose: 20 mg Folic Acid (Folvite) 1 mg PO DAILY [facility] Last Admin: 01/21/18 08:40 Dose: 1 mg Guaifenesin (Robitussin Sf) 200 mg PO Q4H PRN PRN Reason: Cough Hydralazine HCl (Apresoline) 10 mg SLOW IVP Q4H PRN PRN Reason: SBP > 180 and HR < 70 Potassium Phosphate 15 mmol/ (Sodium Chloride) 255 mls @ 62.5 mls/hr IVPB NOW [facility] Stop: 01/22/18 13:00 Iron/Minerals/Multivitamins (Theragran M) 1 tab PO DAILY [facility] Last Admin: 01/21/18 08:40 Dose: 1 tab Levofloxacin (Levaquin) 500 mg PO 0600 [facility] Stop: 01/26/18 06:01 Last Admin: 01/22/18 05:28 Dose: 500 mg Lisinopril (Zestril) 2.5 mg PO DAILY [facility] Last Admin: 01/21/18 08:41 Dose: Not Given Loperamide HCl (Imodium) 2 mg PO PRN PRN PRN Reason: Diarrhea/Loose Stools Mineral Oil/White Petrolatum (Eucerin Cream) 0 gm TOP BIDPRN PRN PRN Reason: Dry Skin Ondansetron HCl (Zofran Odt) 4 mg PO Q6H PRN PRN Reason: Nausea/Vomiting Ondansetron HCl (Zofran) 4 mg IVP Q6H PRN PRN Reason: Nausea/Vomiting Prednisone (Prednisone) 20 mg PO QA-[facility] Last Admin: 01/21/18 08:40 Dose: 20 mg Sodium Chloride ([place] Nasal [place] 0.65%) 0 ml EA NARE QIDPRN PRN PRN Reason: Nasal Congestion Zolpidem Tartrate (Ambien) 5 mg PO HSPRN PRN PRN Reason: Insomnia
[2018-01-22] MEDS ORDERED: Potassium Phosphate 15 MMOL in Sodium Chloride 0.9% 250 ML 250 ML IVPB SCH (08:45)
[2018-01-22] MEDS: Allopurinol 100 MG TAB PO SCH (09:01)
[2018-01-22] MEDS: Aspirin 81 mg Enteric Coated Tablet PO SCH (09:01)
[2018-01-22] MEDS: predniSONE 20 MG TAB PO SCH (09:02)
[2018-01-22] MEDS: Carvedilol 3.125 MG TAB PO SCH ×2 (09:02→20:34)
[2018-01-22] MEDS: Famotidine 20 MG TAB PO SCH ×2 (09:02→20:34)
[2018-01-22] MEDS: Cyanocobalamin (Vitamin B-12) 1,000 MCG TAB PO SCH (09:02)
[2018-01-22] MEDS: Lisinopril 2.5 MG TAB PO SCH (09:03)
[2018-01-22] MEDS: Multivitamin W/ Minerals 1 TAB PO SCH (09:03)
[2018-01-22] MEDS: Folic Acid 1 MG TAB PO SCH (09:03)
--- NOTE | 2018-01-22 09:05 | PRG ---
DATE OF SERVICE: 01/22/2018 This morning he is awake, alert, responsive. He is less short of breath. PHYSICAL EXAMINATION: VITAL SIGNS: His sats are 90% on room air, respirations 13, temperature 98, blood pressure 106/63. CHEST: Chest revealed bilateral crackles. CARDIAC: Normal S1-S2. No gallops. ABDOMEN: Soft. No mass. Electrolytes are normal. White count is unremarkable. IMPRESSION: 1. Congestive heart failure. 2. Bilateral pleural effusion. 3. Chronic obstructive pulmonary disease. 4. Pneumonia. DISPOSITION: As per Cardiology, home anytime.
--- NOTE | 2018-01-22 10:08 | CON ---
DATE OF CONSULTATION: 01/19/2018 PRIMARY CARE PHYSICIAN: Dr. Kota Warren. PRIMARY LOG CLERK: Dr. Steve Escobar. REFERRING PHYSICIAN: Dr. Anders. REASON FOR CARDIOLOGY CONSULTATION: Elevated troponin. HISTORY OF PRESENT ILLNESS: Mr. Redmond is a 72-year-old male with the significant history of chronic systolic heart failure and ex-smoker and drink, EtOH abuse. The patient started having ra pid breathing with pain in the throat and clear phlegm, which has become worsened with any movement s monday. Since he could not make appointment to see the patient's primary care doctors as posssharon navas, so the patient decided to present to the emergency department for further evaluation and treatme nt. He denies shortness of breath; however, he is complaining of lightheaded, dizziness when he star teri having rapid breathing. Also, he has noticed that he has been hypotensive such as his blood pres sure this morning was 88/54. Also, he has not eaten well for a couple of days due to the rapid breat wendi. The patient denies bilateral lower extremity edema or abdomen bloated or any other cardiac com plaints. The patient has a long history of chronic systolic heart failure. The patient has echocardiogram don e in 10/[address] Steve Escobar's office, which shows EF of 25-30%, mild mitral valve regurgita tion, mild tricuspid regurgitation, and moderate LVH and grade 4 diastolic dysfunction with elevated left atrial pressure. Patient was recommended to have a cardiac catheterization at that time; aurelio eng[place], the patient is like to have echocardiogram was done prior to the catheterization; however, since he has not followed up with Dr. Escobar's office. The patient had a stress test in Dr. Manish pablo's office in 06/2017, which shows no ischemia and EF of 30%. The patient has ABIs done in 12/2016, shows moderate stenosis in the bilateral lower extremities. Today, patient denied any claudication in the bilateral lower extremities. The patient's chest x-ray today shows increased pleural fluid an d basilar atelectasis, right side greater than left side. The patient's BNP was up to more than 2600 . PAST MEDICAL HISTORY: Chronic systolic heart failure. PAST SURGICAL HISTORY: He never had a surgery before. FAMILY HISTORY: Patient's sister has some cardiac surgery at the age of 65. He does not recall any other family history in his family. SOCIAL HISTORY: He is . He lives by himself. He had 2 children who live well. The patient is an ex-smoker, which he quit in 2016. He used to smoke one pack a day. He is ex-EtOH abuse. He used to drink a 6 pack of beer a day and also quit in 2016 due to congestive heart failure. He denie s illicit drug abuse. He drinks half a cup of decaf coffee in the morning and through the day, has a less than 1/2 can of Diet Coke. ALLERGIES: No known drug allergy. MEDICATIONS: Lasix 40 mg once a day, lisinopril 5 mg once a day, aspirin 81 mg once a day, carvedilo l 12.5 mg once a day. REVIEW OF SYSTEMS: A 12-point review of systems was negative, otherwise mentioned in the HPI. PHYSICAL EXAMINATION: VITAL SIGNS: Blood pressure 88/51, temperature 98.0, pulse is 75, sinus rhythm, respiratory rate is 18, O2 saturation 98% on 2 liters nasal cannula. GENERAL: The patient is alert, oriented x4, in no acute distress; however, patient refused to move f or the assessment because it worsened his breathing with severe cough. HEAD: Normocephalic, atraumatic. EYES: Extraocular muscle movement intact, watery eyes. ENT AND MOUTH: Oral nasal mucosa is moist without lesions. LUNGS: Really diminished at the bases, more to the right side. CARDIOVASCULAR: Regular rhythm and rate, normal S1, S2. There are no S3, S4. EXTREMITIES: They have 1+ pulses in bilateral lower extremities. ABDOMEN: Soft and nontender. No mass to palpate. Hypoactive bowel sounds. MUSCULOSKELETAL: Patient able to move all extremities. The patient denies claudication. SKIN: He has a 2.5 cm in diameter mass to right underarm and about 3 cm mass on the back and multipl e bruises on the bilateral upper arm. NEUROLOGIC: Patient is alert, oriented x4, nonfocal. LABORATORY DATA: WBC 12.2, hemoglobin 11.4, hematocrit 36.6, platelets 357,000. Sodium 140, potassi um 4.1, BUN 42, creatinine is 1.04, may be dehydrated. CK-MB 1.8. Troponin 0.311, 0.474, and 0.662. BNP 2681. TSH in 2016 was 1.4192 and creatinine kinase is 22, AST 14, ALT 11. ASSESSMENT AND PLAN: 1. Severe dyspnea possible secondary to pneumonia/pleural effusion, acute on chronic systolic heart failure. Patient's chest x-ray revealed increased pleural fluid in the bilateral lower lobe, is more to the right side than left side. According to the patient's previous record in the office, showing the patient had a chronic pleural effusion. He is on Lasix 20 mg IV push once a day. We would like to continue his current doses due to relatively hypotensive. Once patient's condition is stable, we would like to increase the dosage. Also Dr. Schreiber, pulmonary consult was ordered. 2. Elevated troponin, unknown etiology. Due to the elevated troponin and also decreased EF in 10/20 17, left cardiac catheterization will be recommended for this patient, possible on Monday by Dr. Germain arriaga. We let the patient on the very low dose Coreg and aspirin 81 mg once a day and lisinopril 2.5 mg once a day and also patient on the Lovenox at this moment. We would like to continue to monitor on the telemetry. 3. Malnutrition. According to Dr. Escobar's office note, the patient weight was 126 in 10/2017, w hich is at 104 today. The patient stated that he eats well at home except last couple of few days. The patient's B12 with folate will be checked by hospitalist. Thank you very much for allowing the Cardiology Service to participate in care of this patient. We w ill follow along the patient care team and make further recommendation as appropriate.
[2018-01-22] MEDS: Acetaminophen 325 MG TAB PO PRN ×2 (11:13→19:07)
--- NOTE | 2018-01-22 11:39 | PQF ---
CLINICAL DOCUMENTATION IMPROVEMENT CLARIFICATION FORM: ICD-10 Updated PLEASE DO AN ADDENDUM TO THE PROGRESS NOTE WITH ANY DOCUMENTATION UPDATES OR ADDITIONS AND CARRY THROUGH TO DC SUMMARY. THANK YOU. DATE: 01/22/18 ATTN: DR. CONLEY Please exercise your independent, professional judgment in responding to the clarification form. Clinical indicators are provided on the bottom of this form for your review Please check appropriate box(s) to clarify if the following diagnosis has been ruled in or ruled out: PNEUMONIA [ ] Ruled in diagnosis [ ] Continue to treat [ ] Resolved [ x ] Ruled out diagnosis [ ] Cannot rule out diagnosis [ ] Other diagnosis [ ] Unable to determine In addition, please specify: Present on Admission (POA): [ ] Yes [ x ] No [ ] Unable to determine For continuity of documentation, please document condition throughout progress notes and discharge summary. Thank You. CLINICAL INDICATORS - SIGNS / SYMPTOMS / LABS H&P: "HE HAS LEUKOCYTOSIS AND BIBASILAR ATELECTASIS ON X-RAY CONCERNING FOR PNEUMONIA." PROGRESS NOTE 01/22: "PLEURAL EFFUSION" PROGRESS NOTE (PULMONOLOGY NOTE): "PNEUMONIA" WBC 01/19: 12.2 BP 77/44 RR 24 RISKS: CHEST XRAY 01/19: "INCREASING PLEURAL FLUID AND BASILAR ATELECTASIS, RIGHT GREATER THAN LEFT." TREATMENT: DUONEB (GIVEN IN ER-PRESENT) LEVAQUIN (01/21-01/26) PREDISONE (01/21-PRESENT) CARDIAC MONITORING (This form is maintained as a part of the permanent medical record) 2014 [employer]. All Rights Reserved [email or web address] Office: [phone] [facility]
[2018-01-22 14:16] VITALS: BMI 17.2
--- NOTE | 2018-01-22 14:48 | PRG ---
DATE OF SERVICE: 01/22/2018 SUBJECTIVE: Mr. Redmond is currently doing well. No current complaints. He has diuresed. PHYSICAL EXAMINATION: GENERAL: Patient is a pleasant male/female who is in no acute distress. The patient appears his/her stated age. VITAL SIGNS: Blood pressure 111/61, pulse 84, temperature 98.5. NEUROLOGIC: The patient is alert and oriented times 3 with no focal neurologic deficits. HEENT: Sclerae without icterus. Mouth has moist mucous membranes with normal pallor. NECK: No JVD. Carotid upstroke brisk. No bruits bilaterally. LUNGS: Clear to auscultation with unlabored respirations. BACK: No scoliosis or kyphosis. CARDIAC: Regular rate and rhythm with normal S1 and S2. No S3 or S4 noted. No significant rubs, murmurs, thrills, or gallops noted throughout the precordium. PMI is not displaced. There is no parasternal heave. ABDOMEN: Soft, nontender, nondistended. No peritoneal signs present. No hepatosplenomegaly. No abnormal striae. EXTREMITIES: 2+ femoral and 2+ dorsalis pedis pulses. No cyanosis, clubbing, or edema. SKIN: No gross abnormalities. PERTINENT LABS: Hemoglobin 10.5, creatinine 0.89. IMPRESSION: 1. Cardiomyopathy of unknown etiology. 2. Acute systolic heart failure. RECOMMENDATIONS: I had a long discussion with Mr. Redmond. Discussed proceeding with angiography and ICD placement if negative. I discussed coronary angiography in full detail with Mr. Redmond. Risks include but are not limited to also discussed ICD. Patient has been reluctant for a LifeVest a nd ICD in the past while in the office. He continues to remain reluctant on the above knowing potent ial for sudden cardiac . He is also reluctant to proceed with angiography to assess the anatomy . At this point, he would like to go home and follow up as an outpatient for further recommendations . At this point, we will hold his Coreg and CHRISTOPHER inhibitor therapy due to marginal blood pressure of less than 110.
[2018-01-23] MEDS ORDERED: Sodium Chloride 0.9% 10 ML ONE (08:22)
[2018-01-23] MEDS: Carvedilol 3.125 MG TAB PO SCH ×2 (08:40→11:26)
[2018-01-23] MEDS: Famotidine 20 MG TAB PO SCH (08:40)
[2018-01-23] MEDS: Cyanocobalamin (Vitamin B-12) 1,000 MCG TAB PO SCH (08:41)
[2018-01-23] MEDS: Folic Acid 1 MG TAB PO SCH (08:41)
[2018-01-23] MEDS: predniSONE 20 MG TAB PO SCH (08:41)
[2018-01-23] MEDS: Lisinopril 2.5 MG TAB PO SCH (08:41)
[2018-01-23] MEDS: Allopurinol 100 MG TAB PO SCH (08:42)
[2018-01-23] MEDS: Aspirin 81 mg Enteric Coated Tablet PO SCH (08:42)
[2018-01-23] MEDS: Multivitamin W/ Minerals 1 TAB PO SCH (08:42)
--- NOTE | 2018-01-23 08:52 | PDOC.CTH ---
Cardiology Progress Note - Subjective Pt feels better this am. Less SOB. - Objective Vital Signs Temp Pulse Resp BP BP BP Pulse Ox 01/23/18 08:41 83 109/58 L 01/23/18 08:00 97.9 F 83 18 109/58 L 95 01/23/18 07:08 79 16 98 01/23/18 03:27 97.8 F 81 24 H 116/67 97 01/23/18 01:14 74 16 98 01/22/18 23:05 98.0 F 71 20 94/55 L 96 Admit Weight 104 lb 12.8 oz Weight 1149 lb 6.4 oz 01/22/18 01/23/18 01/24/18 06:59 06:59 06:59 Intake Total 480 1280 Output Total 400 350 Balance 80 930 - Physical Examination General/Neuro: alert & oriented x3, NAD Neck: carotid US brisk, no JVD present Lungs: CTA, unlabored respirations Heart: PMI normal, RRR Abdomen: NT/ND, soft Extremities: + femoral B - Labs Result Diagrams: 01/22/18 06:59 01/22/18 06:59 Troponin/CKMB CK-MB (CK-2) 1.8 ng/mL (0-6.6) 01/19/18 11:07 Troponin I 0.624 ng/mL (< 0.028) H* 01/19/18 22:52 - Assessment/Plan Cardiomyopathy of unknown etiology NSVT Weight loss Pt continues with weight loss. Unknown cause. Overall symptoms have improved. Pt still not interested in angio or ICD at this point Continue BB, ACEI Ok for DC any time. Fu with me in 1 week
--- NOTE | 2018-01-23 10:14 | PRG ---
DATE OF SERVICE: 01/23/2018 This morning, he is better, less short of breath. Discharge is being planned today. PHYSICAL EXAMINATION: VITAL SIGNS: His blood pressure is 109/58, pulse 83, temperature 97, sats 100% on room air. GENERAL: He denies any difficulty breathing, cough, chest pain. CHEST: Chest reveals decreased breath sounds, no wheezing. CARDIAC: Normal S1, S2, no gallops. ABDOMEN: Soft, no masses. IMPRESSION: 1. Congestive heart failure. 2. Bilateral pleural effusions, stable. 3. History of chronic obstructive pulmonary disease, stable. DISPOSITION: Home. He can follow up with Dr. Schreiber in the office anytime.
[2018-01-23 12:59] VITALS: BP 112/67; TEMP 98.1
--- NOTE | 2018-01-23 23:46 | DIS ---
DATE OF ADMISSION: 01/19/2018 DATE OF DISCHARGE: 01/23/2018 DISCHARGE DIAGNOSES: 1. Congestive heart failure, acute on chronic, AHA, stage C. 2. Demand ischemia of myocardium. 3. Hyperuricemia. 4. Pleural effusion. 5. Hypotension. 6. Protein-calorie malnutrition, severe. HISTORY: Patient is a 72-year-old male with a history of congestive heart failure who presented via the emergency department with the complaint of increasing shortness of breath over about a week. He had not been eating and had some weight loss, because of generally diminished appetite. On admission , he had a troponin of 0.311. EKG that showed first-degree block and complete bundle branch block, n onspecific ST and T-wave changes and chest x-ray showing increase in pleural fluid and basilar atelec tasis, right greater than left. His BUN was 42, creatinine 1.04. HOSPITAL COURSE: Patient was admitted with dyspnea suspected for acute on chronic congestive heart f ailure with a known ejection fraction of around 25%-30% and some increase in pleural fluid. He also had an elevated troponin, felt to be more demand ischemia due to the heart failure exacerbation. He was noted to have some cachexia with protein-calorie malnutrition. Patient was seen in consultation by Pulmonology and Cardiology. He had a repeat echocardiogram performed, which revealed an ejection fraction of 35%-40% with some probable diastolic dysfunction, where the etiology of the cardiomyopath y has not been elucidated. The patient was encouraged to have evaluation including heart catheteriza tion and then he was not interested in pursuing that. I was also recommendation to consider a defibr illator implantation and the patient did not want to pursue that either. Given that he was treated s ymptomatically diuresed and his symptoms substantially improved. Once he was stable with that regime n, patient had an episode of hypotension that required some fluid bolusing and stabilized his blood p ressure. He had to back off on his CHRISTOPHER inhibitor and beta boby as a result of the hypotension. O nce he managed to get through that and was stable. He was felt stable for discharge. PHYSICAL EXAMINATION: VITAL SIGNS: On the day of discharge, temperature is 98.1, pulse 92, respirations 16, O2 sat 96% on room air, BP 112/67. GENERAL: He is awake, alert, oriented, pleasant, cooperative. HEART: Regular rate and rhythm without murmurs. LUNGS: Clear bilaterally, but slightly diminished. ABDOMEN: Soft, nontender. EXTREMITIES: No edema. DISCHARGE INSTRUCTIONS: DISPOSITION: The patient is discharged to home. ACTIVITY: As tolerated. DIET: He will be on a heart-healthy, low-sodium diet. DISCHARGE MEDICATIONS: He will be on allopurinol 100 mg every day, Coreg 3.125 p.o. b.i.d., Lasix 20 mg every day, lisinopril 2.5 mg every day, aspirin 81 mg every day. He will discontinue the higher dose of Lasix and the higher dose of lisinopril and the higher dose of Coreg. He will follow up with [facility] in [place]. He will follow up with Dr. Escobar and Dr. Obi Silva. He can fo llow up with Dr. Schreiber should he have any pulmonary issues. Patient can return to the emergency depar tment any time prior to his followup.
== END 2018-01-23 15:00 | disposition home or self-care (01) | DRG 291 ==
LOC: ERS 10:34 → 2NO 13:16
PROVIDERS: ADMIT Internal Medicine; ATTEND Internal Medicine
DX: I11.0 Hypertensive heart disease with heart failure (principal); E43 Unspecified severe protein-calorie malnutrition; I24.8 Other forms of acute ischemic heart disease; Z68.1 Body mass index [BMI] 19.9 or less, adult; I47.2 Ventricular tachycardia; I47.1 Supraventricular tachycardia; I42.9 Cardiomyopathy, unspecified; I50.23 Acute on chronic systolic (congestive) heart failure; I95.9 Hypotension, unspecified; E79.0 Hyperuricemia without signs of inflammatory arthritis and tophaceous disease; E83.39 Other disorders of phosphorus metabolism; J44.9 Chronic obstructive pulmonary disease, unspecified; Z79.82 Long term (current) use of aspirin; Z87.891 Personal history of nicotine dependence
CPT/HCPCS: 36415; 36416; 71045; 71046; 80048; 80053; 82553; 83735; 83880; 84100; 84443; 84484; 84550; 85025; 87081; 87430; 93005; 93306; 93798; 94640; 94760; G8978-GP-CJ; G8979-GP-CI; G8987-GO-CH; G8988-GO-CH; G8989-GO-CH; J1650; J1940; J1956; J2930; J7050; J7506; J7620

== ENCOUNTER 2018-02-27 09:37 | Outpatient (CLI) | payer MEDICARE, OTHER ==
[2018-02-27 10:55] LABS: Hemoglobin 10.3 g/dL (14.0-18.0); Mean Corpuscular HGB CONC 30.8 g/dL (32.0-36.0); Mean Corpuscular Hemoglobin 28.6 pg (27.0-31.0); Mean Corpuscular Volume 92.6 fL (78.0-98.0); Platelet Count 439 thou/uL (130-400); RBC Distribution Width 13.4 % (11.5-14.5); Red Blood Cell (RBC) Count 3.62 mill/uL (4.70-6.10)
[2018-02-27 10:59] LABS: INR-International Normal Ratio 1.1; PTT 32.4 SEC (22.9-36.1); Prothrombin Time 14.6 SEC (12.0-14.7)
[2018-02-27 11:15] LABS: ALT (SGPT) 17 U/L (8-55); AST (SGOT) 19 U/L (5-34); Alkaline Phosphatase 111 U/L (40-150); Anion Gap 12 mmol/L (10-20); BUN (Urea Nitrogen) 20 mg/dL (8.4-25.7); Bilirubin, Total 0.6 mg/dL (0.2-1.2); Calc. Creatinine Clearance 0 mL/min (70-130); Calcium 9.5 mg/dL (7.8-10.44); Carbon Dioxide 36 mmol/L (23-31); Chloride 96 mmol/L (98-107); Estimated GFR-MDRD Greater than 90; Globulin 4.3 g/dL (2.4-3.5); Glucose 108 mg/dL (80-115); Potassium 4.2 mmol/L (3.5-5.1); Protein, Total 7.3 g/dL (5.8-8.1); Sodium 140 mmol/L (136-145)
--- NOTE | 2018-02-27 13:17 | EKG ---
Test Reason : Blood Pressure : / mmHG Vent. Rate : 095 BPM Atrial Rate : 096 BPM P-R Int : 000 ms QRS Dur : 132 ms QT Int : 412 ms P-R-T Axes : 000 232 070 degrees QTc Int : 517 ms Suspect arm lead reversal, interpretation assumes no reversal Sinus rhythm with A-V dissociation and Wide QRS rhythm Right bundle branch block Anterolateral infarct , age undetermined Abnormal ECG When compared with ECG of 19-JAN-2018 10:47, Wide QRS rhythm has replaced Sinus rhythm Confirmed by DONOVAN BRANDT, SMel ([id number]) on 02/27/2018 1:17:33 PM Referred By: BLU Confirmed By:DR. Gosia MAN MD
== END 2018-02-27 09:38 | disposition home or self-care (01) ==
LOC: LABBT 09:37
PROVIDERS: ATTEND Internal Medicine Cardiovascular Disease
DX: Z01.818 Encounter for other preprocedural examination (principal); I50.9 Heart failure, unspecified
CPT/HCPCS: 80053; 85027; 85610; 85730; 93005; 93010

== ENCOUNTER 2018-02-28 06:05 | Day surgery (SDC) | payer MEDICARE, OTHER ==
[2018-02-27 09:59] VITALS: BMI 16.7
[2018-02-28] MEDS ORDERED: Diazepam 5 MG TAB ONE (06:13)
[2018-02-28] MEDS ORDERED: Lidocaine 1% (PF) 30 ML VIAL ONE (06:32)
[2018-02-28] MEDS ORDERED: Heparin 10,000 UNITS/1 ML VIAL ONE (07:32)
[2018-02-28] MEDS ORDERED: Heparin 10,000 UNITS/ 10 ML VIAL ONE ×2 (08:12)
[2018-02-28 09:52] LABS: Cardiac Risk 3.7 (Less than 4.5)
[2018-02-28] MEDS ORDERED: Iopamidol 370 76% 100 ML VIAL ONE (15:28)
--- NOTE | 2018-02-28 20:10 | EKG ---
Test Reason : POST STENT Blood Pressure : / mmHG Vent. Rate : 088 BPM Atrial Rate : 088 BPM P-R Int : 202 ms QRS Dur : 134 ms QT Int : 432 ms P-R-T Axes : 017 -79 097 degrees QTc Int : 522 ms Normal sinus rhythm with sinus arrhythmia Left axis deviation Non-specific intra-ventricular conduction block Inferior infarct , age undetermined Septal infarct , age undetermined Abnormal ECG When compared with ECG of 27-FEB-2018 10:34, Sinus rhythm has replaced Wide QRS rhythm Confirmed by DONOVAN BRANDT, DR. Elise ([id number]) on 02/28/2018 8:09:46 PM Referred By: BLU Confirmed By:DR. Gosia MAN MD
== END 2018-02-28 17:45 | disposition home or self-care (01) ==
LOC: CCL 06:05
PROVIDERS: ATTEND Internal Medicine Cardiovascular Disease
PROC: 02703DZ Dilation of Coronary Artery, One Artery with Intraluminal Device, Percutaneous Approach (ICD-10-PCS; principal; 2018-02-28)
PROC: 4A023N7 Measurement of Cardiac Sampling and Pressure, Left Heart, Percutaneous Approach (ICD-10-PCS; 2018-02-28)
PROC: B2111ZZ Fluoroscopy of Multiple Coronary Arteries using Low Osmolar Contrast (ICD-10-PCS; 2018-02-28)
DX: I25.10 Atherosclerotic heart disease of native coronary artery without angina pectoris (principal); I11.0 Hypertensive heart disease with heart failure; I50.22 Chronic systolic (congestive) heart failure; F17.210 Nicotine dependence, cigarettes, uncomplicated; I73.9 Peripheral vascular disease, unspecified; I47.2 Ventricular tachycardia; Z79.02 Long term (current) use of antithrombotics/antiplatelets; Z79.82 Long term (current) use of aspirin; Z79.899 Other long term (current) drug therapy
CPT/HCPCS: 75710; 76942; 80061; 85347; 92928; 93005; 93458; C1725; C1769; C1876; C1887; J1644; J2001

== ENCOUNTER 2018-03-05 14:59 | Inpatient (IN) | payer MEDICARE, OTHER ==
[~2018-03-05 14:59] MED LIST: Iopamidol 370 76% 100 ML VIAL ONE
[2018-03-05] MEDS ORDERED: Albuterol Sulfate 2.5 mg/3 ml Neb ONE (15:14)
[2018-03-05] MEDS ORDERED: Dexamethasone 10 MG/ML VIAL ONE (15:31)
[2018-03-05] MEDS ORDERED: Magnesium 2 GM/50 ML BAG (IN WATER) ONE ×2 (15:31→18:22)
[2018-03-05 15:33] LABS: Hemoglobin 12.2 g/dL (14.0-18.0); Mean Corpuscular HGB CONC 31.4 g/dL (32.0-36.0); Mean Corpuscular Hemoglobin 29.1 pg (27.0-31.0); Mean Corpuscular Volume 92.5 fL (78.0-98.0); Mean Platelet Volume 7.1 fL (7.4-10.4); Platelet Count 526 thou/uL (130-400); RBC Distribution Width 13.7 % (11.5-14.5); Red Blood Cell (RBC) Count 4.21 mill/uL (4.70-6.10); White Blood Cell (WBC) Count 12.6 thou/uL (4.8-10.8)
[2018-03-05 15:45] LABS: Analyzer IN Cardio ER; Base Excess (BEa) 9.3 mEq/L (-2.0 to +3.0); CO2 Tension 52.4 mmHg (35.0-45.0); Calcium, Ionized 1.16 mmol/L (1.12-1.30); Carboxyhemoglobin (COHb) 0.8 gm% (0.0-3.0); Hemoglobin (Hb) 12.2 g/dL (14.0-18.0); O2 Tension (PaO2) 64.1 mmHg (> 70.0); Potassium - ABG Lab 3.68 mmol/L (3.70-5.30); pH, Arterial 7.44 (7.35-7.45)
[2018-03-05 15:46] LABS: Band 14 % (5-11); Lymphocytes 6 % (21-51); MDiff Complete? YES; Monocytes 9 % (0-10); Neutrophil 69 % (42-75); PLT Morphology Comment Appears Increased; Polychromasia SLIGHT = 2-3 cells (100X) (0-2/hpf); Reactive Lymphocytes 1 % (0-10); Target Cells SLIGHT = 2-5 cells (100X) (0-1/hpf)
[2018-03-05 15:48] LABS: Puncture Site RBRACH
[2018-03-05 15:56] LABS: ALT (SGPT) 14 U/L (8-55); AST (SGOT) 18 U/L (5-34); Albumin 3.2 g/dL (3.4-4.8); Alkaline Phosphatase 119 U/L (40-150); Anion Gap 15 mmol/L (10-20); BUN (Urea Nitrogen) 22 mg/dL (8.4-25.7); Bilirubin, Total 1.1 mg/dL (0.2-1.2); CK (CPK) 15 U/L (30-200); Calc. Creatinine Clearance 0 mL/min (70-130); Calcium 9.9 mg/dL (7.8-10.44); Carbon Dioxide 35 mmol/L (23-31); Chloride 95 mmol/L (98-107); Estimated GFR-MDRD 89; Globulin 4.8 g/dL (2.4-3.5); Glucose 121 mg/dL (80-115); Lipase Less than 4 U/L (8-78); Potassium 3.9 mmol/L (3.5-5.1); Sodium 141 mmol/L (136-145)
[2018-03-05 16:00] LABS: CKMB 1.8 ng/mL (0-6.6)
[2018-03-05 16:03] LABS: Troponin I 0.498 ng/mL (< 0.028)
--- NOTE | 2018-03-05 16:49 | RAD ---
FRONTAL RADIOGRAPH CHEST PORTABLE UPRIGHT: 03/05/2018 HISTORY: Short of breath. Dyspnea. COMPARISON: 01/22/2018 FINDINGS: Blunting of the bilateral costophrenic angle is noted, right greater than left, unchanged. There is partial opacification of both lower lobes and of the right middle lobe, right greater than left. The re is atherosclerotic calcification of the aortic arch and the descending thoracic aorta. No pneumot horax. IMPRESSION: Persistent pleural and parenchymal opacity in both lung bases. Findings suggest pleural fluid with c ontinued volume loss. Infectious pneumonitis or pulmonary edema cannot be excluded. POS: [facility]
[2018-03-05 17:19] LABS: Bilirubin Negative (Negative); Blood, Urine Negative (Negative); Clarity CLEAR (Clear); Glucose, Urine (Dipstick) Negative (Negative); Leukocyte Negative (Negative); Nitrite Negative (Negative); Protein, Urine (Dipstick) Negative (Neg-Trace); Specific Gravity, Urine 1.009 (1.002-1.036); pH, Urine 6.5 (5.0-9.0)
--- NOTE | 2018-03-05 18:07 | CT ---
CT ANGIO CHEST PERFORMED WITH IV CONTRAST ENHANCEMENT WITH 3D RECONSTRUCTIONS: Date: 03/05/18 HISTORY: Shortness of breath and cough. COMPARISON: 07/13/15. FINDINGS: The lungs show emphysematous type change. There are some patchy pneumonitis type changes in the super ior segment of the right lower lobe with more extensive consolidation suggesting bibasilar pneumonia. This is associated with fluid within both right and left lower bronchi consistent with mucus secreti ons. This extends all the way to the level of the main bronchus. There is a small left pleural effusi on and a larger right-sided effusion. There is some slight enhancement to the visceral pleura in the right lower lobe associated with this. Patient appears to have had longstanding adhesions. Mediastinal lymph nodes are slightly prominent, and slightly more so than on the previous 2016 study, but probably still more related to reactive nodes, with mildly prominent right paratracheal, aortico pulmonary, and subcarinal nodes. The thoracic aorta is normal in caliber. There is good pulmonary artery opacification. There is no CT evidence for pulmonary embolus. Visualized liver parenchyma shows no focal findings. IMPRESSION: 1. Consolidation of both lower lobes consistent with bibasilar pneumonia, with pleural effusions, ri ght larger than left. There is also a moderate amount of secretions within both right and left lower lobe bronchi to the left of the mainstem bronchus. 2. Mildly prominent mediastinal nodes, which are probably reactive in nature. 3. No CT evidence for pulmonary embolus. POS: [facility]
[2018-03-05] MEDS ORDERED: Furosemide 40 MG/4 ML VIAL ONE (18:22)
[2018-03-05 18:57] LABS: Troponin I 0.591 ng/mL (< 0.028)
[2018-03-05] MEDS ORDERED: Enoxaparin Sodium 60 MG/0.6 ML SYRINGE ONE (19:08)
[2018-03-05] MEDS ORDERED: Acetaminophen 325 MG TAB PO PRN (21:10)
[2018-03-05] MEDS ORDERED: Acetaminophen 650 MG Suppository PR PRN (21:10)
[2018-03-05] MEDS ORDERED: Zolpidem Tartrate 5 MG TAB PO PRN (21:10)
[2018-03-05] MEDS ORDERED: Calcium Carbonate 500 MG ChewTAB PO PRN (21:10)
[2018-03-05 22:04] LABS: Troponin I 0.821 ng/mL (< 0.028)
[2018-03-05] MEDS ORDERED: AZITHROMYCIN IVPB PRN (22:32)
[2018-03-05] MEDS ORDERED: CEFEPIME IVPB PRN (22:32)
[2018-03-05] MEDS ORDERED: VANCOMYCIN IVPB PRN (22:32)
[2018-03-05] MEDS ORDERED: Cefepime 2 GM in Sodium Chloride 0.9% 100 ML IVPB SCH (23:00)
[2018-03-05] MEDS ORDERED: cefTRIAXone\\ROCEPHIN 1 GM in Sodium Chloride 0.9% 100 ML IVPB SCH (23:00)
[2018-03-05] MEDS ORDERED: Azithromycin 500 MG in Sodium Chloride 0.9% 250 ML 250 ML IVPB SCH (23:59)
[2018-03-06] MEDS ORDERED: Sodium Chloride 0.9% 1,000 ML IV SCH (04:30)
[2018-03-06] MEDS: DOPamine 400 MG/D5W 250 ML 250 ML IVPB SCH (05:26)
[2018-03-06] MEDS: Furosemide 40 MG/4 ML VIAL SLOW IVP SCH ×2 (06:00→13:17)
[2018-03-06 06:39] LABS: Anion Gap 11 mmol/L (10-20); BUN (Urea Nitrogen) 27 mg/dL (8.4-25.7); Calc. Creatinine Clearance 54 mL/min (70-130); Calcium 8.3 mg/dL (7.8-10.44); Carbon Dioxide 26 mmol/L (23-31); Chloride 104 mmol/L (98-107); Estimated GFR-MDRD 87; Glucose 149 mg/dL (80-115); Potassium 3.6 mmol/L (3.5-5.1); Sodium 137 mmol/L (136-145)
[2018-03-06 06:48] LABS: Band 14 % (5-11); Hemoglobin 10.2 g/dL (14.0-18.0); Hypochromia SLIGHT = 6-15 cells (100X) (0-5/hpf); Lymphocytes 8 % (21-51); MDiff Complete? YES; Mean Corpuscular HGB CONC 30.4 g/dL (32.0-36.0); Mean Corpuscular Hemoglobin 29.7 pg (27.0-31.0); Mean Corpuscular Volume 97.7 fL (78.0-98.0); Mean Platelet Volume 7.1 fL (7.4-10.4); Neutrophil 78 % (42-75); PLT Morphology Comment Appears Increased; Platelet Count 453 thou/uL (130-400); Polychromasia SLIGHT = 2-3 cells (100X) (0-2/hpf); Red Blood Cell (RBC) Count 3.45 mill/uL (4.70-6.10); White Blood Cell (WBC) Count 18.5 thou/uL (4.8-10.8)
--- NOTE | 2018-03-06 08:11 | PDOC.EVN ---
Event Note - Event Note Event Note: I was called regarding MR. Kota Redmond regarding his low BP's. Patient BP's have be hovering around 80's systolic and eventually at 70's. Patient was given fluid bolus to help bring blood pressure up but patient BP didn't respond. At this point I have ordered Dopamine to be started to keep patient BP up until a central line is placed and patient is going to be transferred to the ICU for Levophed if his BP's continue to be Low ~ 70's systolic. Patient is currently in septic shock therefore we will treat patient aggressively and monitor the patient closely. critical care time > 30mins
[2018-03-06] MEDS ORDERED: Carvedilol 3.125 MG TAB PO SCH (09:00)
[2018-03-06] MEDS ORDERED: Enoxaparin Sodium 40 MG/0.4 ML SYRINGE SC SCH (09:00)
[2018-03-06] MEDS ORDERED: Vancomycin HCl 500 MG in Sodium Chloride 0.9% 100 ML IVPB SCH (09:00)
[2018-03-06] MEDS: Famotidine 20 MG TAB PO SCH ×2 (09:01→21:51)
[2018-03-06] MEDS: Aspirin 81 mg Enteric Coated Tablet PO SCH (09:01)
[2018-03-06] MEDS: Famotidine/PF 20 mg/2ml Vial SLOW IVP SCH ×2 (09:20→22:26)
--- NOTE | 2018-03-06 09:34 | HP ---
CHIEF COMPLAINT: Shortness of breath. HISTORY OF PRESENT ILLNESS: This is a 72-year-old male with past medical history of cardiomyopathy with ejection fraction of 25% to 30%; hypertension; congestive heart failure, systolic, presenting with shortness of breath and cough. The patient stated that with his cough sometimes he has productive sputum and sometimes it is dry cough. At this time around, the patient states that he has been getting a lot of sputum when he coughs and he has also been hearing wheezes bilaterally in his lungs. The patient states that his oxygenation had been low and he has not been feeling like himself; therefore, the patient decided to come to the ED to be further evaluated. The patient was recently seen in our ED for shortness of breath. On 01/19/2018, the patient was also seen for dyspnea with bibasilar pneumonia, and the patient was treated with antibiotics. Of note, on 02/28/2018, the patient underwent a cardiac catheterization. In addition, the patient had an echo done on 01/20/2018, which showed that the patient's ejection fraction is estimated to be 35% to 40% with a diastolic dysfunction. Mild tricuspid regurg and trace mitral regurg were also present with a mildly dilated left atrium. REVIEW OF SYSTEMS: Positive for shortness of breath and productive cough; otherwise, as documented in the HPI. All systems were reviewed and are negative. PAST MEDICAL HISTORY: 1. Hypertension. 2. Cardiomyopathy. 3. Coronary artery disease, status post cardiac cath. 4. Systolic heart failure. PAST SURGICAL HISTORY: Angio last week, 02/28/2018. PSYCH HISTORY: No previous psych history. FAMILY HISTORY: Reviewed and noncontributory to this visit. SOCIAL HISTORY: The patient denies alcohol use. Denies any illicit drug use. The patient is a former tobacco smoker, smoked cigarettes, the patient quit less than 10 years ago. ALLERGIES: NO KNOWN DRUG ALLERGIES. CURRENT MEDICATIONS: The patient is on: 1. Allopurinol. 2. Lasix 40 mg. 3. Carvedilol 3.125. 4. Lisinopril 2.5 mg daily. 5. Aspirin 81 mg. 6. Brilinta 90 mg. PHYSICAL EXAMINATION: VITAL SIGNS: Blood pressure is 91/48, pulse is 89, respiratory rate of 32, temperature of 98.1, and O2 saturation of 99 on 2 L. GENERAL: The patient is cachectic, afebrile, lying in bed, able to speak in full sentences. HEENT: Normocephalic and atraumatic. Temporal wasting. Pupils are equally round and reactive to light. Extraocular movements are intact. No scleral icterus. Mucous membranes are moist. NECK: Full range of motion. Trachea is midline. Supple. No tenderness. LUNGS: The patient has wheezing bilaterally at the anterior lung avila. Also, there are rales that can be appreciated at the posterior lung bases bilaterally. CARDIAC: Positive S1 and S2. Regular rate and rhythm. ABDOMEN: Soft, nontender, and nondistended. Positive bowel sounds in all quadrants. EXTREMITIES: The patient has 5/5 upper extremity strength and 5/5 lower extremity strength. No edema noted at the lower extremities. Good pulses bilaterally at the lower and upper extremities. SKIN: Warm, dry, and intact. PSYCH: Normal affect. DIAGNOSTIC STUDIES: EKG; a 12-lead EKG shows sinus rhythm with a rate of 98 with premature atrial complexes seen. IMAGING STUDIES: Chest x-ray is negative. CT angio of the chest with or without contrast shows bilateral pleural effusion and possible pneumonia. LABORATORY DATA: WBC is 12.6, hemoglobin is 12.2, hematocrit is 39.0, RDW 13.7, and platelet count is 126. D-dimer is 2.14. ABG; pH is 7.4, pCO2 is 52.4, PO2 is 64, and oxygen saturation is 92.1. Sodium is 141, potassium is 3.9, chloride is 95, carbon dioxide of 35, anion gap of 15, BUN is 22, creatinine is 0.85, GFR is 89, and glucose is 121. Lactic acid of 1.7. AST is 18 and ALT is 14. Creatine kinase is 15. Troponin is 0.498, 0.591, and 0.821. BNP is 2614.9. Lipase is less than 4. Urinalysis is negative for leuko esterase and nitrites. ASSESSMENT AND PLAN: This is a 72-year-old male, being admitted to the hospital for; 1. Sepsis, likely due to pneumonia. The patient at this point has been started on broad-spectrum antibiotics. We are going to continue antibiotics. We are going to monitor the patient closely. We will give p.r.n. medications for fever and pain. We will give the patient DuoNeb treatment and Solu-Medrol. We will continue to monitor the patient's respirations. The patient has received fluids. We will follow up on morning labs. 2. Acute on chronic respiratory failure, likely due to pneumonia. The patient is currently on oxygenation. We will keep the patient on oxygenation. We will continue the patient on antibiotics. We will monitor the patient's respirations. 3. Acute systolic heart failure. Currently, the patient does have bilateral pleural effusions. We are going to give the patient Lasix and we are going to monitor the patient closely. We will follow up. 4. History of hypertension. Currently, the patient is hypotensive. We are going to give the patient gentle hydration to see if we can get the patient's blood pressure to come up. If the patient blood pressure does not come up, we are going to treat the patient accordingly by starting a central line and we will stop pressors and we will send the patient to the ICU. 5. Bilateral pleural effusion, likely parapneumonic effusions. At this point, Pulmonology has been consulted. We are giving the patient Lasix. The patient will benefit from possible thoracentesis to find the cause of the patient's pleural effusions. 6. Deep venous thrombosis and gastrointestinal prophylaxis. Job ID: [id number]
[2018-03-06] MEDS: DOBUTamine 500 mg/250 ml 250 ML IVPB SCH (10:17)
--- NOTE | 2018-03-06 10:52 | CON ---
DATE OF CONSULTATION: REASON FOR CONSULTATION: Hypotension and congestive heart failure. HISTORY OF PRESENT ILLNESS: Mr. Redmond is an unfortunate 72-year-old gentleman, who was seen and evaluated in the past. He has a history of cardiomyopathy likely a mix of ischemia and non-ischemia. He underwent coronary angiography last week and had one-vessel disease. He underwent successful stent placement to the circumflex artery. He did well in the post cath period. He was discharged. He states he did very well over the next several days. During the weekend, he had increased shortness of breath. He has now been taking his weights on a daily basis. No chest pain, pressure, or other associated symptoms present. He did undergo CT scan of the chest, showing a consolidation of lower lobes bilaterally consistent with pneumonia. He has been placed on antibiotic therapy. His blood pressure has been marginal blood pressures in the 70s to 80s. He has been placed on dopamine. PAST MEDICAL HISTORY: Ischemic/nonischemic cardiomyopathy, hypertension, COPD. ALLERGIES: NONE. SOCIAL HISTORY: No current tobacco or alcohol use. He does live alone. CURRENT HOME MEDICATIONS: 1. Lasix. 2. Ticagrelor. 3. Carvedilol. 4. Aspirin. 5. Allopurinol. 6. Lisinopril. REVIEW OF SYSTEMS: A 10-point review of systems is reviewed and as above, otherwise negative. PHYSICAL EXAMINATION: GENERAL: Patient is a pleasant, does appear to be cachetic and older than stated age, who is in no acute distress. VITAL SIGNS: Blood pressure 87/52, pulse 88, temperature 98. NEUROLOGIC: The patient is alert and oriented x3 with no focal neurologic deficits. HEENT: Sclerae without icterus. Mouth has moist mucous membranes with normal pallor. NECK: No JVD. Carotid upstroke brisk. No bruits bilaterally. LUNGS: Decreased breath sounds with mild crackles noted bilaterally. BACK: No scoliosis or kyphosis. CARDIAC: Regular rate and rhythm with normal S1 and S2. No S3 or S4 noted. No significant rubs, murmurs, thrills, or gallops noted throughout the precordium. PMI is not displaced. There is no parasternal heave. ABDOMEN: Soft, nontender, nondistended. No peritoneal signs present. No hepatosplenomegaly. No abnormal striae. EXTREMITIES: 2+ femoral and 2+ dorsalis pedis pulses. No cyanosis, clubbing, or edema. SKIN: No gross abnormalities. PERTINENT LABORATORY DATA: Hemoglobin 10.2 and white blood cell count 18.5. Peak troponin 0.5. Creatinine 0.8. IMPRESSION: 1. Bilateral pneumonia. 2. Ischemic/nonischemic cardiomyopathy. 3. Coronary artery disease. RECOMMENDATIONS: He is currently on antibiotic therapy. I have added dobutamine for inotropic support in addition to dopamine. I did recommend transfer to ICU given that he is tenuous. There are no current beds in the ICU or MICU. We will try and manage in the floor. No fever or chills noted, but does have elevated white blood cell count. His troponin is elevate and likely due to demand. Job ID: [id number]
[2018-03-06] MEDS ORDERED: Cefepime 2 GM in Sodium Chloride 0.9% 100 ML IVPB SCH (11:00)
--- NOTE | 2018-03-06 16:27 | CON ---
DATE OF CONSULTATION: SUBJECTIVE: Kota Redmond is a 72-year-old gentleman admitted to the hospital with increased shortness of breath and cough productive of some yellow sputum. The patient is well known to me. He has end-stage congestive cardiomyopathy. Cardiology saw him this morning. He is going to be transferred to the ICU on Dobutrex. His saturations were 88% on room air. He had no fever or chills. He was having rapid respiration. This morning, he said he is feeling better. Denies any chest pain, chills, sweats, or hemoptysis. PAST MEDICAL HISTORY: Extensively and then outlined for end-stage cardiomyopathy, chronic cough, chronic obstructive pulmonary disease, multiple hospitalizations for CHF exacerbation. At most, he says he can barely walk 20 to 30 feet without getting markedly short of breath. MEDICATIONS: Medication from home includes Lasix 40 mg once a day, Brilinta 90 twice a day, Coreg 3.125 twice a day, aspirin, allopurinol, Zestril 2.5. ALLERGIES: NONE. TOBACCO: Former smoker. ALCOHOL: None. REVIEW OF SYSTEMS: Ten-point negative. PHYSICAL EXAMINATION: VITAL SIGNS: Saturations 94% on 2 L, respiratory rate 21, temperature 98, pulse 88, blood pressure is 87/52. GENERAL: He is awake, alert, and responsive. CHEST: Decreased breath sounds. No wheezing. CARDIAC: Normal S1 and S2. No gallops or murmurs. LABORATORY DATA: PO2 pH 7.44 on 2 L. His lytes are normal. BNP is 2614. Creatinine is normal. White count 18,000, hemoglobin and hematocrit of 10 and 33. IMPRESSION: Respiratory failure, bronchitis pneumonia. Discontinue vancomycin and Maxipime. Switch over to oral antibiotics. Continue to monitor x-ray, I's and O's in the ICU. We will follow. Consultation note, 70 minutes, 50% with direct patient care. Job ID: [id number]
[2018-03-06] MEDS: Cefdinir 300 MG CAP PO SCH (21:51)
[2018-03-06] MEDS: Allopurinol 100 MG TAB PO SCH (21:51)
--- NOTE | 2018-03-06 22:51 | PDOC.PN ---
- Subjective Encounter Start Date: 03/06/18 Encounter Start Time: 20:15 Patient seen and examined for Sepsis. Feels slightly better. No new complaints. No overnight events - Objective Resuscitation Status - Order Detail: 03/05/18 21:10 Resuscitation Status Routine Resuscitation Status: FULL: Full Resuscitation MAR Reviewed: Yes Vital Signs & Weight: Vital Signs (12 hours) Temp Pulse Resp Pulse Ox 03/06/18 19:16 88 22 H 100 03/06/18 16:00 98.1 F 03/06/18 15:00 98 F 03/06/18 13:35 88 26 H 03/06/18 12:00 97.6 F 03/06/18 11:00 97.8 F Weight Admit Weight 90 lb 6.232 oz Weight 106 lb 14.4 oz Most Recent Monitor Data Heart Rate from ECG 91 NIBP 81/47 NIBP BP-Mean 58 Respiration from ECG 24 SpO2 99 I&O: 03/05/18 03/06/18 03/07/18 06:59 06:59 06:59 Intake Total 2351 Output Total 460 Balance 1891 Result Diagrams: 03/06/18 05:38 03/06/18 05:38 Radiology Reviewed by me: No (CT chest - Pneumonia) EKG Reviewed by me: Yes (Tele SR) Phys Exam - Physical Examination Constitutional: NAD Respiratory: no wheezing Bibasilar rales Cardiovascular: RRR, no rub Gastrointestinal: soft, non-tender, positive bowel sounds Neurological: moves all 4 limbs Dx/Plan (1) Acute respiratory failure with hypoxia and hypercapnia Code(s): J96.01 - ACUTE RESPIRATORY FAILURE WITH HYPOXIA; J96.02 - ACUTE RESPIRATORY FAILURE WITH HYPERCAPNIA Status: Acute Comment: due to Pneumonia ?Pneumococcal (2) Sepsis with acute organ dysfunction Code(s): A41.9 - SEPSIS, UNSPECIFIED ORGANISM; R65.20 - SEVERE SEPSIS WITHOUT SEPTIC SHOCK Status: Acute (3) Acute on chronic systolic ACC/AHA stage C congestive heart failure Code(s): I50.23 - ACUTE ON CHRONIC SYSTOLIC (CONGESTIVE) HEART FAILURE Status : Acute (4) Demand ischemia of myocardium Code(s): I24.8 - OTHER FORMS OF ACUTE ISCHEMIC HEART DISEASE Status: Acute (5) CAD (coronary artery disease) Code(s): I25.10 - ATHSCL HEART DISEASE OF [place] CORONARY ARTERY W/O ANG PCTRS Status: Chronic (6) Hypotension Status: Acute (7) Protein-calorie malnutrition, severe Code(s): E43 - UNSPECIFIED SEVERE PROTEIN-CALORIE MALNUTRITION Status: Chronic (8) CKD (chronic kidney disease) stage 2, GFR 60-89 ml/min Code(s): N18.2 - CHRONIC KIDNEY DISEASE, STAGE 2 (MILD) Status: Chronic - Plan DVT proph w/lovenox, DVT proph w/SCDs * Cont Dobutamine/Dopamine * AM labs * Cont Atbx * CCU monitoring * Cont current meds as below Review of Systems - Review of Systems Cardiovascular: negative: chest pain, palpitations, orthopnea, paroxysmal nocturnal dyspnea, edema, light headedness, other Gastrointestinal: negative: Nausea, Vomiting, Abdominal Pain, Diarrhea, Constipation, Melena, Hematochezia, Other - Medications/Allergies Allergies/Adverse Reactions: Allergies Allergy/AdvReac Type Severity Reaction Status Date / Time No Known Drug Allergies Allergy Verified 03/05/18 23:12 Medications: Current Medications Acetaminophen (Tylenol) 650 mg PO Q4H PRN PRN Reason: Headache/Fever/Mild Pain (1-3) Acetaminophen (Tylenol) 650 mg [place] Q4H PRN PRN Reason: Headache/Fever/Mild Pain (1-3) Albuterol/Ipratropium (Duoneb) 3 ml NEB [id number] [facility] Last Admin: 03/06/18 19:16 Dose: 3 ml Allopurinol (Zyloprim) 100 mg PO QPM [facility] Last Admin: 03/06/18 21:51 Dose: 100 mg Aspirin (Ecotrin) 81 mg PO DAILY [facility] Last Admin: 03/06/18 09:01 Dose: 81 mg Calcium Carbonate (Tums) 1,000 mg PO Q4H PRN PRN Reason: Heartburn or Indigestion Cefdinir (Omnicef) 300 mg PO BID [facility] Stop: 03/11/18 21:01 Last Admin: 03/06/18 21:51 Dose: 300 mg Enoxaparin Sodium (Lovenox) 40 mg SC 0900 [facility] Last Admin: 03/06/18 09:00 Dose: 40 mg Famotidine (Pepcid) 20 mg SLOW IVP Q12HR [facility] Last Admin: 03/06/18 22:26 Dose: Not Given Famotidine (Pepcid) 20 mg PO BID [facility] Last Admin: 03/06/18 21:51 Dose: 20 mg Dopamine HCl/Dextrose (Dopamine/D5w) 250 mls @ 8.7 mls/hr IVPB INF [facility]; Protocol Last Admin: 03/06/18 05:26 Dose: 250 mls Dobutamine HCl/Dextrose (Dobutamine 500 Mg/250 Ml) 250 mls @ 7.273 mls/hr IVPB INF [facility]; Protocol Last Admin: 03/06/18 10:17 Dose: 250 mls Lisinopril (Zestril) 2.5 mg PO QPM [facility] Prednisone (Prednisone) 20 mg PO QAM-WM [facility] Sodium Chloride (Flush - Normal Saline) 10 ml IVF Q12HR [facility] Last Admin: 03/06/18 10:18 Dose: 10 ml Sodium Chloride (Flush - Normal Saline) 10 ml IVF PRN PRN PRN Reason: Saline Flush Zolpidem Tartrate (Ambien) 5 mg PO HSPRN PRN PRN Reason: Insomnia
[2018-03-07 05:06] LABS: #Lymphocytes 0.8 thou/uL (1.20-3.40); #Monocytes 1.2 thou/uL (0.11-0.59); #Neutrophils 13.3 thou/uL (1.40-6.50); %Eosinophils 0.1 % (0.0-10.0); %Lymphocytes 5.4 % (21.0-51.0); %Monocytes 7.6 % (0.0-10.0); %Neutrophils 86.8 % (42.0-75.0); Hemoglobin 10.1 g/dL (14.0-18.0); Mean Corpuscular HGB CONC 30.3 g/dL (32.0-36.0); Mean Platelet Volume 7.2 fL (7.4-10.4); Platelet Count 459 thou/uL (130-400); RBC Distribution Width 13.7 % (11.5-14.5); Red Blood Cell (RBC) Count 3.48 mill/uL (4.70-6.10); White Blood Cell (WBC) Count 15.3 thou/uL (4.8-10.8)
[2018-03-07 05:24] LABS: ALT (SGPT) 12 U/L (8-55); AST (SGOT) 19 U/L (5-34); Albumin 2.6 g/dL (3.4-4.8); Alkaline Phosphatase 105 U/L (40-150); Anion Gap 13 mmol/L (10-20); BUN (Urea Nitrogen) 34 mg/dL (8.4-25.7); Bilirubin, Total 0.5 mg/dL (0.2-1.2); Calc. Creatinine Clearance 47 mL/min (70-130); Carbon Dioxide 28 mmol/L (23-31); Chloride 101 mmol/L (98-107); Estimated GFR-MDRD 73; Glucose 116 mg/dL (80-115); Magnesium 2.2 mg/dL (1.6-2.6); Protein, Total 6.6 g/dL (5.8-8.1); Sodium 138 mmol/L (136-145)
--- NOTE | 2018-03-07 06:56 | PDOC.CTH ---
Cardiology Progress Note - Subjective Pt awake and alert. No complaints. BP still marginal - Objective Vital Signs Temp Pulse Resp Pulse Ox 03/07/18 04:00 98.0 F 03/07/18 00:55 90 20 100 03/07/18 00:00 98.1 F 03/06/18 20:00 100 03/06/18 19:16 88 22 H 100 03/06/18 19:00 98.0 F Admit Weight 90 lb 6.232 oz Weight 106 lb 14.4 oz 03/05/18 03/06/18 03/07/18 06:59 06:59 06:59 Intake Total 3018.3 Output Total 710 Balance 2308.3 - Physical Examination General/Neuro: alert & oriented x3, NAD Neck: carotid US brisk, no JVD present Lungs: unlabored respirations Heart: RRR Abdomen: NT/ND, soft Extremities: + edema B - Labs Result Diagrams: 03/07/18 04:44 03/07/18 04:44 Troponin/CKMB CK-MB (CK-2) 1.8 ng/mL (0-6.6) 03/05/18 15:16 Troponin I 0.821 ng/mL (< 0.028) H* 03/05/18 21:21 - Assessment/Plan Ischemic/non-ischmeic CM CAD s/p stent placement cardiogenic shock Pneumonia Pt BP continues to be marginal On /Dop po Abx No complaints of CP
[2018-03-07] MEDS: Cefdinir 300 MG CAP PO SCH ×2 (08:22→20:26)
[2018-03-07] MEDS: Famotidine 20 MG TAB PO SCH ×2 (08:22→20:26)
[2018-03-07] MEDS: Aspirin 81 mg Enteric Coated Tablet PO SCH (08:22)
[2018-03-07] MEDS: predniSONE 20 MG TAB PO SCH (08:22)
[2018-03-07] MEDS: DOPamine 400 MG/D5W 250 ML 250 ML IVPB SCH (08:27)
[2018-03-07] MEDS ORDERED: Enoxaparin Sodium 30 MG/0.3 ML SYRINGE SC SCH (09:00)
[2018-03-07] MEDS: Famotidine/PF 20 mg/2ml Vial SLOW IVP SCH (09:13)
--- NOTE | 2018-03-07 09:25 | RAD ---
PORTABLE AP CHEST RADIOGRAPH: Date: 03-07-18 History: CHF Comparison: 03-05-18 FINDINGS: Cardiac silhouette remains enlarged. The pulmonary vasculature is within normal limits. Linear artifa ct overlies the lung bases, greater on the left. Pleural and parenchymal changes are again seen at ea ch lung base. Findings could be related to bilateral pleural effusions and atelectasis, but bibasilar pneumonia and associated pleural effusions is suggested, again greater at the right lung base. IMPRESSION: Bibasilar pneumonia and associated pleural effusions, greater at the right lung base. Follow up to co mplete resolution is recommended. Chest is overall stable compared to the prior study. POS: C
--- NOTE | 2018-03-07 10:55 | PRG ---
DATE OF SERVICE: 03/07/2018 SUBJECTIVE: This morning, he is awake, alert, and responsive. He said he is feeling better. OBJECTIVE: VITAL SIGNS: Blood pressure is too low 88/51, on Dobutrex at 5 mcg, pulse 92, saturations 99% on room air, respirations 31. His I's and O's have been 3018 in and 710 out. CHEST: Bilateral crackles, rhonchi. CARDIAC: Normal S1 and S2. No gallops or murmurs. LABORATORY DATA: His lytes are normal. White count 15,000. His chest x-ray shows right greater than left pleural effusion. IMPRESSION: 1. Congestive heart failure. 2. Chronic obstructive pulmonary disease. 3. Severe deconditioning. 4. Cachexia. Continue Dobutrex, supportive care, low-dose prednisone. Job ID: [id number]
[2018-03-07] MEDS: Lisinopril 2.5 MG TAB PO SCH (11:47)
--- NOTE | 2018-03-07 17:02 | PDOC.PN ---
- Subjective Encounter Start Date: 03/07/18 Encounter Start Time: 09:30 Patient seen and examined for Pneumonia/CHF. No new complaints. No overnight events - Objective Resuscitation Status - Order Detail: 03/05/18 21:10 Resuscitation Status Routine Resuscitation Status: FULL: Full Resuscitation MAR Reviewed: Yes Vital Signs & Weight: Vital Signs (12 hours) Temp Pulse Resp Pulse Ox 03/07/18 16:00 98.1 F 03/07/18 12:54 91 24 H 03/07/18 11:00 96.7 F L 03/07/18 08:00 99 03/07/18 07:40 90 18 03/07/18 07:00 96.2 F L Weight Admit Weight 90 lb 6.232 oz Weight 106 lb 14.4 oz Most Recent Monitor Data Heart Rate from ECG 93 NIBP 105/60 NIBP BP-Mean 75 Respiration from ECG 23 SpO2 100 I&O: 03/06/18 03/07/18 03/08/18 06:59 06:59 06:59 Intake Total 3018.3 1040 Output Total 710 350 Balance 2308.3 690 Result Diagrams: 03/07/18 04:44 03/07/18 04:44 EKG Reviewed by me: Yes (Tele SR with PVCs) Phys Exam - Physical Examination Constitutional: NAD Respiratory: no wheezing, no rhonchi Few bibasilar rales Cardiovascular: RRR, no rub Gastrointestinal: soft, non-tender, positive bowel sounds Neurological: non-focal, moves all 4 limbs Psychiatric: A&O x 3 Dx/Plan (1) Acute respiratory failure with hypoxia and hypercapnia Code(s): J96.01 - ACUTE RESPIRATORY FAILURE WITH HYPOXIA; J96.02 - ACUTE RESPIRATORY FAILURE WITH HYPERCAPNIA Status: Acute Comment: due to Pneumonia ?Pneumococcal (2) Sepsis with acute organ dysfunction Code(s): A41.9 - SEPSIS, UNSPECIFIED ORGANISM; R65.20 - SEVERE SEPSIS WITHOUT SEPTIC SHOCK Status: Acute (3) Acute on chronic systolic ACC/AHA stage C congestive heart failure Code(s): I50.23 - ACUTE ON CHRONIC SYSTOLIC (CONGESTIVE) HEART FAILURE Status : Acute (4) Demand ischemia of myocardium Code(s): I24.8 - OTHER FORMS OF ACUTE ISCHEMIC HEART DISEASE Status: Acute (5) CAD (coronary artery disease) Code(s): I25.10 - ATHSCL HEART DISEASE OF [place] CORONARY ARTERY W/O ANG PCTRS Status: Chronic (6) Hypotension Status: Acute (7) Protein-calorie malnutrition, severe Code(s): E43 - UNSPECIFIED SEVERE PROTEIN-CALORIE MALNUTRITION Status: Chronic (8) CKD (chronic kidney disease) stage 2, GFR 60-89 ml/min Code(s): N18.2 - CHRONIC KIDNEY DISEASE, STAGE 2 (MILD) Status: Chronic - Plan DVT proph w/lovenox, DVT proph w/SCDs * Resume Brilinta * Cont Dobutamine/Dopamine * AM labs * Cont Atbx - changed to PO * Cont current meds as below Review of Systems - Review of Systems Cardiovascular: negative: chest pain, palpitations, orthopnea, paroxysmal nocturnal dyspnea, edema, light headedness, other Gastrointestinal: negative: Nausea, Vomiting, Abdominal Pain, Diarrhea, Constipation, Melena, Hematochezia, Other - Medications/Allergies Allergies/Adverse Reactions: Allergies Allergy/AdvReac Type Severity Reaction Status Date / Time No Known Drug Allergies Allergy Verified 03/05/18 23:12 Medications: Current Medications Acetaminophen (Tylenol) 650 mg PO Q4H PRN PRN Reason: Headache/Fever/Mild Pain (1-3) Acetaminophen (Tylenol) 650 mg [place] Q4H PRN PRN Reason: Headache/Fever/Mild Pain (1-3) Albuterol/Ipratropium (Duoneb) 3 ml NEB [id number] [facility] Last Admin: 03/07/18 12:54 Dose: 3 ml Allopurinol (Zyloprim) 100 mg PO QPM [facility] Last Admin: 03/06/18 21:51 Dose: 100 mg Aspirin (Ecotrin) 81 mg PO DAILY [facility] Last Admin: 03/07/18 08:22 Dose: 81 mg Calcium Carbonate (Tums) 1,000 mg PO Q4H PRN PRN Reason: Heartburn or Indigestion Cefdinir (Omnicef) 300 mg PO BID [facility] Stop: 03/11/18 21:01 Last Admin: 03/07/18 08:22 Dose: 300 mg Famotidine (Pepcid) 20 mg PO BID [facility] Last Admin: 03/07/18 08:22 Dose: 20 mg Dopamine HCl/Dextrose (Dopamine/D5w) 250 mls @ 8.7 mls/hr IVPB INF [facility]; Protocol Last Admin: 03/07/18 08:27 Dose: 250 mls Dobutamine HCl/Dextrose (Dobutamine 500 Mg/250 Ml) 250 mls @ 7.273 mls/hr IVPB INF [facility]; Protocol Last Admin: 03/06/18 10:17 Dose: 250 mls Lisinopril (Zestril) 2.5 mg PO QPM [facility] Last Admin: 03/07/18 11:47 Dose: Not Given Prednisone (Prednisone) 20 mg PO QAM-WM [facility] Last Admin: 03/07/18 08:22 Dose: 20 mg Sodium Chloride (Flush - Normal Saline) 10 ml IVF Q12HR [facility] Last Admin: 03/07/18 09:14 Dose: 10 ml Sodium Chloride (Flush - Normal Saline) 10 ml IVF PRN PRN PRN Reason: Saline Flush Ticagrelor (Brilinta) 90 mg PO BID [facility] Zolpidem Tartrate (Ambien) 5 mg PO HSPRN PRN PRN Reason: Insomnia
[2018-03-07] MEDS: Allopurinol 100 MG TAB PO SCH (20:26)
[2018-03-07] MEDS: TICAGRELOR 90 MG TABLET PO SCH (20:35)
[2018-03-08] MEDS: Lisinopril 2.5 MG TAB PO SCH (00:33)
[2018-03-08 04:41] LABS: Anion Gap 8 mmol/L (10-20); BUN (Urea Nitrogen) 32 mg/dL (8.4-25.7); Calc. Creatinine Clearance 60 mL/min (70-130); Calcium 9.3 mg/dL (7.8-10.44); Carbon Dioxide 35 mmol/L (23-31); Chloride 99 mmol/L (98-107); Estimated GFR-MDRD Greater than 90; Glucose 129 mg/dL (80-115); Sodium 138 mmol/L (136-145)
[2018-03-08 04:45] LABS: #Lymphocytes 0.6 thou/uL (1.20-3.40); #Monocytes 0.8 thou/uL (0.11-0.59); #Neutrophils 12.4 thou/uL (1.40-6.50); %Eosinophils 0.1 % (0.0-10.0); %Lymphocytes 4.4 % (21.0-51.0); %Monocytes 5.6 % (0.0-10.0); %Neutrophils 89.8 % (42.0-75.0); Hemoglobin 10.4 g/dL (14.0-18.0); Mean Corpuscular HGB CONC 31.1 g/dL (32.0-36.0); Mean Corpuscular Hemoglobin 28.9 pg (27.0-31.0); Mean Corpuscular Volume 92.9 fL (78.0-98.0); Mean Platelet Volume 7.2 fL (7.4-10.4); Platelet Count 477 thou/uL (130-400); RBC Distribution Width 13.6 % (11.5-14.5); Red Blood Cell (RBC) Count 3.58 mill/uL (4.70-6.10); White Blood Cell (WBC) Count 13.8 thou/uL (4.8-10.8)
[2018-03-08] MEDS: DOBUTamine 500 mg/250 ml 250 ML IVPB SCH (04:52)
[2018-03-08] MEDS: Cefdinir 300 MG CAP PO SCH ×2 (08:01→21:30)
[2018-03-08] MEDS: Famotidine 20 MG TAB PO SCH ×2 (08:01→21:29)
[2018-03-08] MEDS: predniSONE 20 MG TAB PO SCH (08:02)
[2018-03-08] MEDS: Aspirin 81 mg Enteric Coated Tablet PO SCH (08:02)
[2018-03-08] MEDS: TICAGRELOR 90 MG TABLET PO SCH ×2 (08:02→21:29)
[2018-03-08 10:20] LABS: Magnesium 2.3 mg/dL (1.6-2.6); Phosphorus 2.5 mg/dL (2.3-4.7)
[2018-03-08] MEDS ORDERED: ISOVUE-370 76%-LOCM 1 ML ONE (10:50)
--- NOTE | 2018-03-08 10:57 | PRG ---
DATE OF SERVICE: 03/08/2018 SUBJECTIVE: This morning, he is awake, alert, and responsive. He is weak. OBJECTIVE: VITAL SIGNS: Blood pressure is 100/63, pulse of 94, saturations are 97% on 2 L, respirations 21. He had a run of ventricular tachycardia yesterday. He is on dopamine and Dobutrex at 5 mcg. GENERAL: He is awake, alert, and responsive. CHEST: Decreased breath sounds. No wheezing. CARDIAC: Normal S1 and S2. No gallops or murmurs. IMPRESSION: Congestive cardiomyopathy, end-stage, pleural effusion, bilateral right greater than left. PLAN: Continue dopamine, Dobutrex, supportive care. PROGNOSIS: Guarded. We will follow on the ICU. Job ID: [id number]
--- NOTE | 2018-03-08 13:52 | PRG ---
DATE OF SERVICE: 03/08/2018 SUBJECTIVE: Mr. Redmond mentally is doing well. No current complaints. He continues to be inotropic supported. OBJECTIVE: VITAL SIGNS: Currently, blood pressure 97/50, pulse 94, temperature afebrile. LUNGS: Clear to auscultation. HEART: Regular rate and rhythm. ABDOMEN: Soft, nontender, and nondistended. EXTREMITIES: No edema. GENERAL: The patient appears cachectic. LABORATORY DATA: Pertinent labs; hemoglobin 10.4, white blood cell count 13.8, creatinine 0.79. IMPRESSION: 1. Acute on chronic systolic heart failure. 2. Coronary artery disease. 3. Status post stent placement. 4. Unexplained weight loss. RECOMMENDATIONS: I had several discussions today with Mr. Redmond in addition to his sister, Mariana [facility] at [facility], after discussion with Dr. Rice at [facility]. I discussed LVAD versus hospice if we are not able to wean him off inotropic support. He did have some interest in LVAD. Concern is his albumin level was 2.6 with unexplained weight loss of 20 pounds in the last six months. He states he eats well. This was confirmed by his sister. He has had a CT scan of the chest that has been negative for malignancy. At this point, based on his albumin level and unexplained weight loss, he is not felt to be an appropriate candidate for LVAD. His TSH is within normal limits. We will check HIV in addition to hepatitis C. He stopped drinking two years ago. We will also check a CT scan of the abdomen and pelvis. At this point, we will try to continue to wean off inotropes. If unable, we will have further discussions about hospice. Job ID: [id number]
[2018-03-08 14:16] LABS: INR-International Normal Ratio 1.1; Prothrombin Time 14.5 SEC (12.0-14.7)
[2018-03-08 14:26] LABS: CEA, Serum 3.92 ng/mL (< or = 5.0)
[2018-03-08 14:27] LABS: PSA-Asymptomatic (SCREENING) 0.35 ng/mL (0-4.0)
[2018-03-08 14:59] LABS: HBCM Index 0.06 S/CO (0-0.79); HBSAg Index 0.23 S/CO (0-0.99); HIV (1/2) Antibody/Antigen Non-Reactive (NonReactive); HIV 1/2 INDEX 0.12 S/CO (<1.00); Hep A IgM AB Non-Reactive (NonReactive); Hep A IgM S/CO 0.11 S/CO (0-0.79); Hep B Surf Ag Non-Reactive S/CO (NonReactive); Hep C IgG Ab Non-Reactive (NonReactive); Hep C Index 0.14 S/CO (0-0.79); Hepatitis B Core IgM Abs Non-Reactive (NonReactive)
--- NOTE | 2018-03-08 16:44 | CT ---
CT ABDOMEN AND PELVIS WITH CONTRAST: Multiple axial tomograms are obtained through the abdomen and pelvis with IV enhancement. INDICATION: Weight loss. Question intraabdominal malignancy. COMPARISON: Comparison is made to chest CTA 03/05/2018. FINDINGS: Images through the lung bases reveal a small to moderate-sized right pleural effusion which has not s ignificantly changed. The bibasilar lung atelectasis is again noted. There is evidence for a small pericardial effusion. The liver, spleen, and pancreas appear unremarkable. Adrenal glands are normal. Kidneys unremarkable. Urinary bladder is distended. Small bowel loops show mild distention without dilatation. Stool throughout the colon. Small volume ascites. Aorta is calcified without evidence of aneurysmal dilatation. There are nonspecific periaortic lymph nodes without evidence of adenopathy. Osseous structures unremarkable. IMPRESSION: 1. Right pleural effusion with bibasilar atelectasis/consolidation. Small pericardial effusion. 2. Small volume ascites. No evidence of acute intraabdominal process. POS: [facility]
[2018-03-08] MEDS: Allopurinol 100 MG TAB PO SCH (21:28)
--- NOTE | 2018-03-08 22:20 | PDOC.PN ---
- Subjective Encounter Start Date: 03/08/18 Encounter Start Time: 12:00 Patient seen and examined for CHF. Off Dopamine. No new complaints. No overnight events - Objective Resuscitation Status - Order Detail: 03/05/18 21:10 Resuscitation Status Routine Resuscitation Status: FULL: Full Resuscitation MAR Reviewed: Yes Vital Signs & Weight: Vital Signs (12 hours) Temp Pulse Resp Pulse Ox 03/08/18 18:19 92 23 H 100 03/08/18 16:00 97.1 F L 03/08/18 12:36 94 23 H 99 03/08/18 11:00 97.6 F Weight Admit Weight 90 lb 6.232 oz Weight 106 lb 14.4 oz Most Recent Monitor Data Heart Rate from ECG 95 NIBP 82/49 NIBP BP-Mean 60 Respiration from ECG 27 SpO2 100 I&O: 03/07/18 03/08/18 03/09/18 06:59 06:59 06:59 Intake Total 3018.3 1646 1653.9 Output Total 710 800 275 Balance 2308.3 846 1378.9 Result Diagrams: 03/10/18 04:16 03/10/18 04:16 EKG Reviewed by me: Yes (Tele SR) Phys Exam - Physical Examination Constitutional: NAD Respiratory: no wheezing, no rhonchi Cardiovascular: RRR, no rub Gastrointestinal: soft, non-tender, positive bowel sounds Neurological: moves all 4 limbs Psychiatric: A&O x 3 Dx/Plan (1) Acute respiratory failure with hypoxia and hypercapnia Code(s): J96.01 - ACUTE RESPIRATORY FAILURE WITH HYPOXIA; J96.02 - ACUTE RESPIRATORY FAILURE WITH HYPERCAPNIA Status: Acute Comment: due to Pneumonia ?Pneumococcal (2) Acute on chronic systolic ACC/AHA stage C congestive heart failure Code(s): I50.23 - ACUTE ON CHRONIC SYSTOLIC (CONGESTIVE) HEART FAILURE Status : Acute (3) Demand ischemia of myocardium Code(s): I24.8 - OTHER FORMS OF ACUTE ISCHEMIC HEART DISEASE Status: Acute (4) CAD (coronary artery disease) Code(s): I25.10 - ATHSCL HEART DISEASE OF [place] CORONARY ARTERY W/O ANG PCTRS Status: Chronic (5) Hypotension Status: Acute Comment: due to CHF (6) Protein-calorie malnutrition, severe Code(s): E43 - UNSPECIFIED SEVERE PROTEIN-CALORIE MALNUTRITION Status: Chronic Comment: with Cachexia ?Cardiac Cachexia (7) CKD (chronic kidney disease) stage 2, GFR 60-89 ml/min Code(s): N18.2 - CHRONIC KIDNEY DISEASE, STAGE 2 (MILD) Status: Chronic - Plan DVT proph w/SCDs Plan d/w Cardiology -: Will r/o intra abd malignancy -: Check PSA,CEA and Ca19-9 -: AM labs -: Cont current meds as below Review of Systems - Review of Systems Cardiovascular: negative: chest pain, palpitations, orthopnea, paroxysmal nocturnal dyspnea, edema, light headedness, other Gastrointestinal: negative: Nausea, Vomiting, Abdominal Pain, Diarrhea, Constipation, Melena, Hematochezia, Other - Medications/Allergies Allergies/Adverse Reactions: Allergies Allergy/AdvReac Type Severity Reaction Status Date / Time No Known Drug Allergies Allergy Verified 03/05/18 23:12 Medications: Current Medications Acetaminophen (Tylenol) 650 mg PO Q4H PRN PRN Reason: Headache/Fever/Mild Pain (1-3) Acetaminophen (Tylenol) 650 mg [place] Q4H PRN PRN Reason: Headache/Fever/Mild Pain (1-3) Albuterol/Ipratropium (Duoneb) 3 ml NEB [id number] [facility] Last Admin: 03/08/18 18:19 Dose: 3 ml Allopurinol (Zyloprim) 100 mg PO QPM [facility] Last Admin: 03/08/18 21:28 Dose: 100 mg Aspirin (Ecotrin) 81 mg PO DAILY [facility] Last Admin: 03/08/18 08:02 Dose: 81 mg Calcium Carbonate (Tums) 1,000 mg PO Q4H PRN PRN Reason: Heartburn or Indigestion Cefdinir (Omnicef) 300 mg PO BID [facility] Stop: 03/11/18 21:01 Last Admin: 03/08/18 21:30 Dose: 300 mg Famotidine (Pepcid) 20 mg PO BID [facility] Last Admin: 03/08/18 21:29 Dose: 20 mg Dopamine HCl/Dextrose (Dopamine/D5w) 250 mls @ 8.7 mls/hr IVPB INF [facility]; Protocol Last Admin: 03/07/18 08:27 Dose: 250 mls Dobutamine HCl/Dextrose (Dobutamine 500 Mg/250 Ml) 250 mls @ 7.273 mls/hr IVPB INF [facility]; Protocol Last Admin: 03/08/18 04:52 Dose: 250 mls Prednisone (Prednisone) 20 mg PO QAM-WM [facility] Last Admin: 03/08/18 08:02 Dose: 20 mg Sodium Chloride (Flush - Normal Saline) 10 ml IVF Q12HR [facility] Last Admin: 03/08/18 21:30 Dose: 10 ml Sodium Chloride (Flush - Normal Saline) 10 ml IVF PRN PRN PRN Reason: Saline Flush Ticagrelor (Brilinta) 90 mg PO BID [facility] Last Admin: 03/08/18 21:29 Dose: 90 mg Zolpidem Tartrate (Ambien) 5 mg PO HSPRN PRN PRN Reason: Insomnia
[2018-03-09 05:41] LABS: #Lymphocytes 0.6 thou/uL (1.20-3.40); #Monocytes 0.8 thou/uL (0.11-0.59); #Neutrophils 7.5 thou/uL (1.40-6.50); %Eosinophils 0.1 % (0.0-10.0); %Lymphocytes 6.5 % (21.0-51.0); %Monocytes 9.3 % (0.0-10.0); %Neutrophils 84.1 % (42.0-75.0); Hemoglobin 9.6 g/dL (14.0-18.0); Mean Corpuscular HGB CONC 31.1 g/dL (32.0-36.0); Mean Corpuscular Hemoglobin 28.8 pg (27.0-31.0); Mean Corpuscular Volume 92.5 fL (78.0-98.0); Platelet Count 451 thou/uL (130-400); RBC Distribution Width 13.6 % (11.5-14.5); Red Blood Cell (RBC) Count 3.35 mill/uL (4.70-6.10); White Blood Cell (WBC) Count 8.9 thou/uL (4.8-10.8)
[2018-03-09 05:59] LABS: Anion Gap 9 mmol/L (10-20); BUN (Urea Nitrogen) 28 mg/dL (8.4-25.7); Calc. Creatinine Clearance 65 mL/min (70-130); Calcium 9.2 mg/dL (7.8-10.44); Carbon Dioxide 32 mmol/L (23-31); Chloride 100 mmol/L (98-107); Estimated GFR-MDRD Greater than 90; Glucose 124 mg/dL (80-115); Magnesium 2.4 mg/dL (1.6-2.6); Phosphorus 2.2 mg/dL (2.3-4.7); Potassium 3.9 mmol/L (3.5-5.1); Sodium 137 mmol/L (136-145)
[2018-03-09] MEDS: predniSONE 20 MG TAB PO SCH (08:43)
[2018-03-09] MEDS: Cefdinir 300 MG CAP PO SCH ×2 (08:43→20:42)
[2018-03-09] MEDS: Famotidine 20 MG TAB PO SCH ×2 (08:43→20:42)
[2018-03-09] MEDS: TICAGRELOR 90 MG TABLET PO SCH ×2 (08:43→20:42)
[2018-03-09] MEDS: Aspirin 81 mg Enteric Coated Tablet PO SCH (08:43)
[2018-03-09] MEDS: Polyethylene Glycol 3350 17 GM Packet PO SCH (08:46)
[2018-03-09] MEDS: Senokot S 8.6-50 MG TAB PO SCH ×2 (08:46→20:42)
--- NOTE | 2018-03-09 08:54 | PDOC.CTH ---
Cardiology Progress Note - Subjective Pt doing much better today. STates he has had increase PO intake. Pt off pressors. BP stable. - Objective Vital Signs Temp Pulse Resp Pulse Ox 03/09/18 07:25 96 03/09/18 06:52 86 23 H 03/09/18 04:00 98.0 F 03/09/18 00:14 20 100 03/09/18 00:00 98.0 F Admit Weight 90 lb 6.232 oz Weight 106 lb 14.4 oz 03/08/18 03/09/18 03/10/18 06:59 06:59 06:59 Intake Total 1646 2074.5 0 Output Total 800 600 0 Balance 846 1474.5 0 - Physical Examination General/Neuro: alert & oriented x3, NAD Neck: carotid US brisk, no JVD present Lungs: unlabored respirations Heart: RRR Abdomen: no HSM, NT/ND Extremities: + femoral B - Labs Result Diagrams: 03/09/18 05:14 03/09/18 05:14 Troponin/CKMB CK-MB (CK-2) 1.8 ng/mL (0-6.6) 03/05/18 15:16 Troponin I 0.821 ng/mL (< 0.028) H* 03/05/18 21:21 - Assessment/Plan Hypotension likely related to cardiogenic shock CAD s/p stent placement Recent CT scan, labs did not suggest a source for recent unexplained weight loss Dopamine d/pat continues with hypotension Pt not felt to be appropriate candidate for LVAD secondary to profound weight loss and low albumin level. Discussed with he and his sister. Pts weight and nutrition status will have to improve prior to any further evaluation and appears medical therapy is the only current option
--- NOTE | 2018-03-09 11:16 | PRG ---
DATE OF SERVICE: 03/09/2018 SUBJECTIVE: This morning, he is awake, alert, and responsive. He says he is feeling better. OBJECTIVE: VITAL SIGNS: Sats are 96% on room air, blood pressure 108/61 on Dobutrex, respirations 16, output is 600 mL. CHEST: Decreased breath sounds with no wheezing. CARDIAC: Normal S1 and S2. No gallops . LABORATORY DATA Lytes are normal. DIAGNOSTIC DATA: CT of his abdomen and pelvis was ordered yesterday, which showed pleural effusion and ascites. IMPRESSION: 1. Cardiac cachexia. 2. Chronic obstructive pulmonary disease. 3. Pleural effusion. PLAN: Pulmonary dyer, continue neb treatments, supportive care, PT. Job ID: [id number]
[2018-03-09] MEDS: K-Phos Neutral 250 MG TAB PO SCH ×3 (11:42→18:16)
[2018-03-09] MEDS ORDERED: Furosemide 40 MG/4 ML VIAL SLOW IVP SCH (14:00)
[2018-03-09] MEDS: Allopurinol 100 MG TAB PO SCH (20:42)
--- NOTE | 2018-03-09 20:53 | PDOC.PN ---
- Subjective Encounter Start Date: 03/09/18 Encounter Start Time: 10:30 Patient seen and examined for CHF. On Dobutamine drip. SOB improving. No new complaints. No overnight events - Objective Resuscitation Status - Order Detail: 03/05/18 21:10 Resuscitation Status Routine Resuscitation Status: FULL: Full Resuscitation MAR Reviewed: Yes Vital Signs & Weight: Vital Signs (12 hours) Temp Pulse Pulse Pulse Resp BP BP 03/09/18 18:32 94 26 H 03/09/18 16:00 98.2 F 03/09/18 13:03 90 21 H 03/09/18 12:00 98.4 F 03/09/18 11:20 90 99 118/64 98/57 L Weight Admit Weight 90 lb 6.232 oz Weight 106 lb 14.4 oz Most Recent Monitor Data Heart Rate from ECG 94 NIBP 83/59 NIBP BP-Mean 67 Respiration from ECG 21 SpO2 100 I&O: 03/08/18 03/09/18 03/10/18 06:59 06:59 06:59 Intake Total 1646 2074.5 1709 Output Total 800 600 575 Balance 846 1474.5 1134 Result Diagrams: 03/10/18 04:16 03/10/18 04:16 Phys Exam - Physical Examination Constitutional: NAD Respiratory: no wheezing, no rhonchi few rales at bases Cardiovascular: RRR, no rub Gastrointestinal: soft, non-tender, positive bowel sounds Musculoskeletal: no edema Neurological: moves all 4 limbs Dx/Plan (1) Acute respiratory failure with hypoxia and hypercapnia Code(s): J96.01 - ACUTE RESPIRATORY FAILURE WITH HYPOXIA; J96.02 - ACUTE RESPIRATORY FAILURE WITH HYPERCAPNIA Status: Acute Comment: due to Pneumonia ?Pneumococcal (2) Acute on chronic systolic ACC/AHA stage C congestive heart failure Code(s): I50.23 - ACUTE ON CHRONIC SYSTOLIC (CONGESTIVE) HEART FAILURE Status : Acute (3) Demand ischemia of myocardium Code(s): I24.8 - OTHER FORMS OF ACUTE ISCHEMIC HEART DISEASE Status: Acute (4) CAD (coronary artery disease) Code(s): I25.10 - ATHSCL HEART DISEASE OF [place] CORONARY ARTERY W/O ANG PCTRS Status: Chronic (5) Hypotension Status: Acute Comment: due to CHF (6) Protein-calorie malnutrition, severe Code(s): E43 - UNSPECIFIED SEVERE PROTEIN-CALORIE MALNUTRITION Status: Chronic Comment: with Cachexia ?Cardiac Cachexia (7) CKD (chronic kidney disease) stage 2, GFR 60-89 ml/min Code(s): N18.2 - CHRONIC KIDNEY DISEASE, STAGE 2 (MILD) Status: Chronic (8) Hypophosphatemia Code(s): E83.39 - OTHER DISORDERS OF PHOSPHORUS METABOLISM Status: Acute - Plan continue antibiotics, DVT proph w/SCDs Cont Dobutamine -: Not on ACEI/ARB/Aldactone/BB due to low BP -: Cont other meds as below -: Replace electrolytes -: Cont other meds as below Review of Systems - Review of Systems Respiratory: SOB with Excertion. negative: Cough, Dry, Shortness of Breath, Hemoptysis, Pleuritic Pain, Sputum, Wheezing Cardiovascular: negative: chest pain, palpitations, orthopnea, paroxysmal nocturnal dyspnea, edema, light headedness, other Gastrointestinal: negative: Nausea, Vomiting, Abdominal Pain, Diarrhea, Constipation, Melena, Hematochezia, Other - Medications/Allergies Allergies/Adverse Reactions: Allergies Allergy/AdvReac Type Severity Reaction Status Date / Time No Known Drug Allergies Allergy Verified 03/05/18 23:12 Medications: Current Medications Acetaminophen (Tylenol) 650 mg PO Q4H PRN PRN Reason: Headache/Fever/Mild Pain (1-3) Acetaminophen (Tylenol) 650 mg [place] Q4H PRN PRN Reason: Headache/Fever/Mild Pain (1-3) Albuterol/Ipratropium (Duoneb) 3 ml NEB [id number] [facility] Last Admin: 03/09/18 18:32 Dose: 3 ml Allopurinol (Zyloprim) 100 mg PO QPM [facility] Last Admin: 03/09/18 20:42 Dose: 100 mg Aspirin (Ecotrin) 81 mg PO DAILY [facility] Last Admin: 03/09/18 08:43 Dose: 81 mg Calcium Carbonate (Tums) 1,000 mg PO Q4H PRN PRN Reason: Heartburn or Indigestion Cefdinir (Omnicef) 300 mg PO BID [facility] Stop: 03/11/18 21:01 Last Admin: 03/09/18 20:42 Dose: 300 mg Famotidine (Pepcid) 20 mg PO BID [facility] Last Admin: 03/09/18 20:42 Dose: 20 mg Dopamine HCl/Dextrose (Dopamine/D5w) 250 mls @ 8.7 mls/hr IVPB INF [facility]; Protocol Last Admin: 03/07/18 08:27 Dose: 250 mls Dobutamine HCl/Dextrose (Dobutamine 500 Mg/250 Ml) 250 mls @ 7.273 mls/hr IVPB INF [facility]; Protocol Last Admin: 03/08/18 04:52 Dose: 250 mls Phosphorus (Kphos Neutral) 250 mg PO TID-[facility] Last Admin: 03/09/18 18:16 Dose: 250 mg Polyethylene Glycol (Miralax) 17 gm PO DAILY [facility] Last Admin: 03/09/18 08:46 Dose: Not Given Prednisone (Prednisone) 20 mg PO QAM-[facility] Last Admin: 03/09/18 08:43 Dose: 20 mg Senna/Docusate Sodium (Senokot S) 1 tab PO BID [facility] Last Admin: 03/09/18 20:42 Dose: Not Given Sodium Chloride (Flush - Normal Saline) 10 ml IVF Q12HR [facility] Last Admin: 03/09/18 20:43 Dose: 10 ml Sodium Chloride (Flush - Normal Saline) 10 ml IVF PRN PRN PRN Reason: Saline Flush Ticagrelor (Brilinta) 90 mg PO BID [facility] Last Admin: 03/09/18 20:42 Dose: 90 mg Zolpidem Tartrate (Ambien) 5 mg PO HSPRN PRN PRN Reason: Insomnia
[2018-03-10 05:02] LABS: #Lymphocytes 0.5 thou/uL (1.20-3.40); #Monocytes 0.9 thou/uL (0.11-0.59); %Basophils 0.1 % (0.0-1.0); %Eosinophils 0.1 % (0.0-10.0); %Lymphocytes 5.1 % (21.0-51.0); %Monocytes 9.4 % (0.0-10.0); %Neutrophils 85.3 % (42.0-75.0); Hemoglobin 9.6 g/dL (14.0-18.0); Mean Corpuscular HGB CONC 30.4 g/dL (32.0-36.0); Mean Corpuscular Hemoglobin 28.1 pg (27.0-31.0); Mean Corpuscular Volume 92.5 fL (78.0-98.0); Mean Platelet Volume 7.3 fL (7.4-10.4); Platelet Count 470 thou/uL (130-400); RBC Distribution Width 13.6 % (11.5-14.5); Red Blood Cell (RBC) Count 3.42 mill/uL (4.70-6.10); White Blood Cell (WBC) Count 9.4 thou/uL (4.8-10.8)
[2018-03-10 05:21] LABS: Anion Gap 14 mmol/L (10-20); BUN (Urea Nitrogen) 27 mg/dL (8.4-25.7); Calc. Creatinine Clearance 65 mL/min (70-130); Calcium 9.6 mg/dL (7.8-10.44); Carbon Dioxide 29 mmol/L (23-31); Chloride 99 mmol/L (98-107); Estimated GFR-MDRD Greater than 90; Glucose 146 mg/dL (80-115); Potassium 4.5 mmol/L (3.5-5.1); Sodium 137 mmol/L (136-145)
[2018-03-10 05:36] LABS: Phosphorus 1.8 mg/dL (2.3-4.7)
[2018-03-10] MEDS ORDERED: K-Phos Neutral 250 MG TAB PO SCH (08:00)
[2018-03-10] MEDS: predniSONE 20 MG TAB PO SCH (08:33)
[2018-03-10] MEDS: Aspirin 81 mg Enteric Coated Tablet PO SCH (08:33)
[2018-03-10] MEDS: Famotidine 20 MG TAB PO SCH ×2 (08:33→20:35)
[2018-03-10] MEDS: Cefdinir 300 MG CAP PO SCH ×2 (08:33→20:35)
[2018-03-10] MEDS: Senokot S 8.6-50 MG TAB PO SCH ×2 (08:34→20:35)
[2018-03-10] MEDS: Polyethylene Glycol 3350 17 GM Packet PO SCH (08:34)
[2018-03-10] MEDS: TICAGRELOR 90 MG TABLET PO SCH ×2 (08:34→20:35)
--- NOTE | 2018-03-10 11:56 | EKG ---
Test Reason : Blood Pressure : / mmHG Vent. Rate : 098 BPM Atrial Rate : 098 BPM P-R Int : 172 ms QRS Dur : 132 ms QT Int : 412 ms P-R-T Axes : 049 -85 120 degrees QTc Int : 525 ms Sinus rhythm with Premature atrial complexes Left axis deviation Non-specific intra-ventricular conduction block Inferior infarct , age undetermined Cannot rule out Anteroseptal infarct , age undetermined T wave abnormality, consider lateral ischemia Abnormal ECG No change from previous Confirmed by TAYA BRANDT, YULIA ([id number]), social media editor FREDERIC ARZATE ([id number]) on 03/10/2018 11:55:57 AM Referred By: Confirmed By:YULIA BAIN MD
[2018-03-10] MEDS ORDERED: Sodium Phosphate 15 MMOL in Sodium Chloride 0.9% 250 ML 250 ML IVPB SCH (14:45)
--- NOTE | 2018-03-10 14:45 | PRG ---
DATE OF SERVICE: 03/10/2018 SERVICE: Pulmonary Medicine. INTERVAL HISTORY: The patient is doing well from a respiratory standpoint. Denies any current chest pain, fevers, or chills. He is on room air. He is not short of breath. The dobutamine drip stopped this morning, and his blood pressure really did not fall off any. Otherwise, there has been no interval change to his condition. I would like to go to rehab center, but we have to get a Physical Therapy consultation before that occurs. OBJECTIVE: VITAL SIGNS: Afebrile, pulse 88, blood pressure 118/76, respirations 23, and saturation 100% on room air. GENERAL: The patient is awake, alert, in no apparent distress. LUNGS: Excellent air entry. No dependent crackles are identified. HEART: Normal rate, regular. ABDOMEN: Soft, nontender, and nondistended. Bowel sounds are positive. MUSCULOSKELETAL: No cyanosis or clubbing. No pitting in the bilateral lower extremities. NEUROLOGIC: Grossly nonfocal. LABORATORY DATA: WBC 9.4, hemoglobin 9.6 and stable, platelets 470,000. Basic metabolic profile is completely unremarkable. Phosphorus is 1.8. Blood cultures x2 are unremarkable. ASSESSMENT: 1. Chronic obstructive pulmonary disease without current exacerbation. 2. Acute on chronic systolic heart failure. 3. Right-sided pleural effusion, layering. 4. Severe protein-calorie malnutrition. DISCUSSION AND PLAN: If the patient remains off the dobutamine drip, and maintains good blood pressure, he will be stable for transition to the telemetry unit. Pulmonary Critical Care will continue to follow along for the time being. Phosphorus will be replaced today. Job ID: [id number]
[2018-03-10] MEDS: Allopurinol 100 MG TAB PO SCH (20:35)
--- NOTE | 2018-03-10 22:26 | PDOC.PN ---
- Subjective Encounter Start Date: 03/10/18 Encounter Start Time: 08:00 Patient seen and examined for CHF.On Dobutamine drip. No CP. No new complaints. No overnight events - Objective Resuscitation Status - Order Detail: 03/05/18 21:10 Resuscitation Status Routine Resuscitation Status: FULL: Full Resuscitation MAR Reviewed: Yes Vital Signs & Weight: Vital Signs (12 hours) Temp Pulse Pulse Resp BP BP BP 03/10/18 19:36 97.8 F 95 18 03/10/18 19:15 03/10/18 19:14 84 16 03/10/18 15:50 97.6 F 85 16 111/63 03/10/18 15:00 97.5 F L 03/10/18 14:58 88 129/75 127/74 03/10/18 12:43 88 17 BP Pulse Ox Pulse Ox Pulse Ox 03/10/18 19:36 108/60 99 03/10/18 19:15 98 03/10/18 19:14 98 03/10/18 15:50 100 03/10/18 15:00 03/10/18 14:58 100 100 03/10/18 12:43 99 Weight Admit Weight 90 lb 6.232 oz Weight 106 lb 14.4 oz Most Recent Monitor Data Heart Rate from ECG 88 NIBP 127/74 NIBP BP-Mean 91 Respiration from ECG 22 SpO2 100 I&O: 03/09/18 03/10/18 03/11/18 06:59 06:59 06:59 Intake Total 2074.5 2464.6 1230 Output Total 600 625 125 Balance 1474.5 1839.6 1105 Result Diagrams: 03/10/18 04:16 03/10/18 04:16 Additional Labs: Laboratory Tests 03/10/18 04:16 Phosphorus 1.8 L EKG Reviewed by me: Yes (Tele SR) Phys Exam - Physical Examination Constitutional: NAD Respiratory: no wheezing, no rhonchi Cardiovascular: RRR, no rub Gastrointestinal: soft, non-tender, positive bowel sounds Neurological: moves all 4 limbs Dx/Plan (1) Acute respiratory failure with hypoxia and hypercapnia Code(s): J96.01 - ACUTE RESPIRATORY FAILURE WITH HYPOXIA; J96.02 - ACUTE RESPIRATORY FAILURE WITH HYPERCAPNIA Status: Acute Comment: due to Pneumonia ?Pneumococcal (2) Acute on chronic systolic ACC/AHA stage C congestive heart failure Code(s): I50.23 - ACUTE ON CHRONIC SYSTOLIC (CONGESTIVE) HEART FAILURE Status : Acute (3) Demand ischemia of myocardium Code(s): I24.8 - OTHER FORMS OF ACUTE ISCHEMIC HEART DISEASE Status: Acute (4) CAD (coronary artery disease) Code(s): I25.10 - ATHSCL HEART DISEASE OF [place] CORONARY ARTERY W/O ANG PCTRS Status: Chronic (5) Hypotension Status: Acute Comment: due to CHF (6) Protein-calorie malnutrition, severe Code(s): E43 - UNSPECIFIED SEVERE PROTEIN-CALORIE MALNUTRITION Status: Chronic Comment: with Cachexia ?Cardiac Cachexia (7) CKD (chronic kidney disease) stage 2, GFR 60-89 ml/min Code(s): N18.2 - CHRONIC KIDNEY DISEASE, STAGE 2 (MILD) Status: Chronic (8) Hypophosphatemia Code(s): E83.39 - OTHER DISORDERS OF PHOSPHORUS METABOLISM Status: Acute - Plan DVT proph w/SCDs Cont Dobutamine drip -: Cont other meds as below -: Transfer to tele later today if ok with Cardio -: Replace Phosphorus, AM labs -: Not on ACEI/ARB/Aldactone/BB due to low BP Review of Systems - Review of Systems Respiratory: SOB with Excertion. negative: Cough, Dry, Shortness of Breath, Hemoptysis, Pleuritic Pain, Sputum, Wheezing Cardiovascular: negative: chest pain, palpitations, orthopnea, paroxysmal nocturnal dyspnea, edema, light headedness, other Gastrointestinal: negative: Nausea, Vomiting, Abdominal Pain, Diarrhea, Constipation, Melena, Hematochezia, Other - Medications/Allergies Allergies/Adverse Reactions: Allergies Allergy/AdvReac Type Severity Reaction Status Date / Time No Known Drug Allergies Allergy Verified 03/05/18 23:12 Medications: Current Medications Acetaminophen (Tylenol) 650 mg PO Q4H PRN PRN Reason: Headache/Fever/Mild Pain (1-3) Acetaminophen (Tylenol) 650 mg [place] Q4H PRN PRN Reason: Headache/Fever/Mild Pain (1-3) Albuterol/Ipratropium (Duoneb) 3 ml NEB [id number] [facility] Last Admin: 03/10/18 19:14 Dose: 3 ml Allopurinol (Zyloprim) 100 mg PO QPM [facility] Last Admin: 03/10/18 20:35 Dose: 100 mg Aspirin (Ecotrin) 81 mg PO DAILY [facility] Last Admin: 03/10/18 08:33 Dose: 81 mg Calcium Carbonate (Tums) 1,000 mg PO Q4H PRN PRN Reason: Heartburn or Indigestion Cefdinir (Omnicef) 300 mg PO BID [facility] Stop: 03/11/18 21:01 Last Admin: 03/10/18 20:35 Dose: 300 mg Famotidine (Pepcid) 20 mg PO BID [facility] Last Admin: 03/10/18 20:35 Dose: 20 mg Miscellaneous Medication (Phos-Nak) 1 pkt PO BID-WM [facility] Last Admin: 03/10/18 17:58 Dose: 1 pkt Polyethylene Glycol (Miralax) 17 gm PO DAILY [facility] Last Admin: 03/10/18 08:34 Dose: Not Given Senna/Docusate Sodium (Senokot S) 1 tab PO BID [facility] Last Admin: 03/10/18 20:35 Dose: Not Given Sodium Chloride (Flush - Normal Saline) 10 ml IVF Q12HR [facility] Last Admin: 03/10/18 20:35 Dose: 10 ml Sodium Chloride (Flush - Normal Saline) 10 ml IVF PRN PRN PRN Reason: Saline Flush Ticagrelor (Brilinta) 90 mg PO BID [facility] Last Admin: 03/10/18 20:35 Dose: 90 mg Zolpidem Tartrate (Ambien) 5 mg PO HSPRN PRN PRN Reason: Insomnia
[2018-03-11 06:26] LABS: Anion Gap 11 mmol/L (10-20); BUN (Urea Nitrogen) 30 mg/dL (8.4-25.7); Calc. Creatinine Clearance 67 mL/min (70-130); Calcium 9.3 mg/dL (7.8-10.44); Carbon Dioxide 31 mmol/L (23-31); Chloride 100 mmol/L (98-107); Estimated GFR-MDRD Greater than 90; Glucose 115 mg/dL (80-115); Phosphorus 3.4 mg/dL (2.3-4.7); Potassium 4.6 mmol/L (3.5-5.1); Sodium 137 mmol/L (136-145)
[2018-03-11] MEDS: Famotidine 20 MG TAB PO SCH ×2 (09:26→20:25)
[2018-03-11] MEDS: TICAGRELOR 90 MG TABLET PO SCH ×2 (09:26→20:26)
[2018-03-11] MEDS: Aspirin 81 mg Enteric Coated Tablet PO SCH (09:26)
[2018-03-11] MEDS: Cefdinir 300 MG CAP PO SCH ×2 (09:26→20:25)
[2018-03-11] MEDS: Senokot S 8.6-50 MG TAB PO SCH ×2 (09:29→20:25)
[2018-03-11] MEDS: Polyethylene Glycol 3350 17 GM Packet PO SCH (09:29)
--- NOTE | 2018-03-11 12:27 | PRG ---
DATE OF SERVICE: 03/11/2018 SUBJECTIVE: The patient is seen and examined at bedside. He is doing quite well. He feels better every day. He is going to the rehab to improve his strength in his lower extremities since he was bedridden for several days during this hospitalization. OBJECTIVE: VITAL SIGNS: Blood pressure is 122/80, pulse is 97, temperature is 97.9, O2 saturation is 98% on room air. HEENT: His head is atraumatic and normocephalic. He looks somewhat emaciated and malnourished. Eyes, PERRLA. Sclerae are nonicteric. Oral mucosa is moist. NECK: Supple. 1+ JVD. LUNGS: Breath sounds somewhat diminished at both bases and somewhat distant. Few crackles at both bases. HEART: S1 and S2, normal. No S3. No S4. Distant. ABDOMEN: Soft, nontender. Bowel sounds are present. No organomegaly. EXTREMITIES: 1+ peripheral edema similar bilaterally. NEUROLOGICAL: He is alert and oriented x4. There are no any motor or sensory deficits present. Cranial nerves are intact. LABORATORY DATA: Labs showed normal electrolytes, BUN of 30, creatinine 0.75, and the rest of chemistry within normal limits. Fecal occult blood test, negative. IMPRESSION: 1. Acute respiratory failure with hypoxia and hypercapnia, improved. 2. Acute on chronic systolic congestive heart failure, improved. 3. Demand ischemia of myocardium, improved. 4. Coronary artery disease, chronic. 5. Hypotension, improved. 6. Protein calorie malnutrition, quite severe. 7. Chronic kidney disease, stage 2, improved. 8. Hypophosphatemia, replaced. PLAN: The plan is to prepare him for discharge to rehabilitation center tomorrow. He will continue current regimen. His phosphorus was replaced. He will continue on his ticagrelor, Omnicef, and aspirin and will continue DVT prophylaxis. His carvedilol is still on hold since his blood pressure is still on the lower side. Also, his lisinopril is on hold because of the same reason. Job ID: [id number]
--- NOTE | 2018-03-11 12:34 | PDOC.CTH ---
<Sophie Branch - Last Filed: 03/11/18 12:39> Cardiology Progress Note - Subjective The pt seen and examined. No overnight events. No cardiac complaints. - Objective Vital Signs Temp Pulse Resp BP Pulse Ox 03/11/18 08:42 98 03/11/18 08:39 97 12 03/11/18 07:45 98 03/11/18 07:42 97.9 F 93 17 122/80 98 03/11/18 04:08 97.5 F L 100 20 101/56 L 97 Admit Weight 90 lb 6.232 oz Weight 113 lb 11.2 oz 03/10/18 03/11/18 03/12/18 06:59 06:59 06:59 Intake Total 2464.6 2040 Output Total 625 525 Balance 1839.6 1515 - Physical Examination General/Neuro: alert & oriented x3 Neck: no JVD present Lungs: other: (diminished at bases) Heart: RRR Abdomen: soft Extremities: other: (No edema) - Telemetry Telemetry Rhythm: SR 90s - Labs Result Diagrams: 03/10/18 04:16 03/11/18 04:33 Troponin/CKMB CK-MB (CK-2) 1.8 ng/mL (0-6.6) 03/05/18 15:16 Troponin I 0.821 ng/mL (< 0.028) H* 03/05/18 21:21 - Assessment/Plan 1. Acute on chronic combined HF - stable with RA; Not on ACEI/ARB/Aldactone/BB due to low BP. 2. Ischemic CMY - stable; Pt not felt to be appropriate candidate for LVAD secondary to profound weight loss and low albumin level. 3. CAD with s/p stent x1 in Lt Cx on 02/28/2018 - stable; on Brelinta and ASA. Not on ACEI/ARB/Aldactone/BB due to low BP. 4. Hypotension likely related to cardiogenic shock - stable 5. PNA - ABX managed by PCP 6. COPD - stable with RA 7. CKD stage 2 - stable MAR reviewed * Echo in 01/2018 showed EF 35-40% with distolic dysfunction and LVH. Review of Systems - Review of Systems Constitutional: reports: weakness EENTM: reports: no symptoms reported Respiratory: reports: no symptoms reported Cardiac (ROS): reports: no symptoms reported ABD/GI: reports: no symptoms reported : reports: no symptoms reported Musculoskeletal: reports: no symptoms reported Skin: reports: no symptoms reported <Radha Correa - Last Filed: 03/11/18 21:59> Cardiology Progress Note - Objective Vital Signs Temp Pulse Resp BP BP Pulse Ox 03/11/18 20:20 97.6 F 108 H 16 116/61 97 03/11/18 19:29 96 03/11/18 19:28 95 03/11/18 17:26 97.9 F 108 H 17 106/70 96 03/11/18 14:32 96 12 03/11/18 12:31 96 15 120/74 97 Admit Weight 90 lb 6.232 oz Weight 113 lb 11.2 oz 03/10/18 03/11/18 03/12/18 06:59 06:59 06:59 Intake Total 2464.6 2040 960 Output Total 625 525 485 Balance 1839.6 1515 475 - Labs Result Diagrams: 03/10/18 04:16 03/11/18 04:33 Troponin/CKMB CK-MB (CK-2) 1.8 ng/mL (0-6.6) 03/05/18 15:16 Troponin I 0.821 ng/mL (< 0.028) H* 03/05/18 21:21 - Assessment/Plan Pt. seen and eval. by me. I agree with the A/P by the OUTSIDE SAL[employer]PRES[employer]IVE [employer]. We have discussed the pt. and the plan.Chest clear. RRR
--- NOTE | 2018-03-11 19:03 | PRG ---
DATE OF SERVICE: 03/11/2018 SERVICE: Pulmonary Medicine. INTERVAL HISTORY: The patient is breathing beautifully. He denies any chest pain, fevers, or chills. He was very appreciative of the care that he has received at our institution. There are no reported events from nursing staff. PHYSICAL EXAMINATION: VITAL SIGNS: Afebrile, pulse 96, blood pressure 106/70, respirations 17, and saturation 96% on room air. GENERAL: The patient is awake, alert, in no apparent distress. LUNGS: Reduced air entry. There is a prolonged expiratory phase, but no wheezing or crackles are appreciated. HEART: Normal rate, regular. ABDOMEN: Soft, nontender, and nondistended. Bowel sounds are positive. MUSCULOSKELETAL: No cyanosis or clubbing. There is 1+ pitting in the bilateral lower extremities. NEUROLOGIC: Grossly nonfocal. LABORATORY DATA: WBC 9.4, hemoglobin 9.6, platelets 470,000. Basic metabolic profile is otherwise unremarkable. Phosphorous falls within the normal limits today. Blood cultures x2 remain negative. ASSESSMENT: 1. Chronic obstructive pulmonary disease without current exacerbation. 2. Acute on chronic systolic heart failure. 3. Right-sided pleural effusion, layering. 4. Severe protein-calorie malnutrition. DISCUSSION AND PLAN: The patient's blood pressures are fairly stable at this point. We will continue to diurese him, slowly to get him closer to euvolemia. Pulmonary Critical Care will continue to follow while he remains in-house for now. Job ID: [id number]
[2018-03-11] MEDS: Allopurinol 100 MG TAB PO SCH (20:26)
--- NOTE | 2018-03-12 08:59 | PDOC.PN ---
- Subjective Encounter Start Date: 03/12/18 Encounter Start Time: 08:57 Subjective: nochestpain ,sob,edema - Objective Resuscitation Status - Order Detail: 03/05/18 21:10 Resuscitation Status Routine Resuscitation Status: FULL: Full Resuscitation MAR Reviewed: Yes Vital Signs & Weight: Vital Signs (12 hours) Temp Pulse Resp BP BP Pulse Ox 03/12/18 07:40 98.1 F 123 H 19 119/76 97 03/12/18 07:20 120 H 18 97 03/12/18 04:53 95 03/12/18 03:47 97.5 F L 105 H 16 95/58 L 95 03/11/18 23:50 94 L Weight Admit Weight 90 lb 6.232 oz Weight 112 lb 11.2 oz Most Recent Monitor Data Heart Rate from ECG 88 NIBP 127/74 NIBP BP-Mean 91 Respiration from ECG 22 SpO2 100 I&O: 03/11/18 03/12/18 03/13/18 06:59 06:59 06:59 Intake Total 2040 1807 Output Total 525 885 Balance 1515 922 Result Diagrams: 03/10/18 04:16 03/11/18 04:33 Phys Exam - Physical Examination Neck: no JVD Respiratory: clear to auscultation bilateral Cardiovascular: RRR tachy,gallop rhythm Gastrointestinal: positive bowel sounds Dx/Plan (1) CAD (coronary artery disease) Code(s): I25.10 - ATHSCL HEART DISEASE OF [place] CORONARY ARTERY W/O ANG PCTRS Status: Chronic Qualifiers: Coronary Disease-Associated Artery/Lesion type: [place] artery [place] vs. transplanted heart: [place] heart Associated angina: without angina Qualified Code(s): I25.10 - Atherosclerotic heart disease of [place] coronary artery without angina pectoris (2) CKD (chronic kidney disease) stage 2, GFR 60-89 ml/min Code(s): N18.2 - CHRONIC KIDNEY DISEASE, STAGE 2 (MILD) Status: Chronic (3) Acute on chronic systolic ACC/AHA stage C congestive heart failure Code(s): I50.23 - ACUTE ON CHRONIC SYSTOLIC (CONGESTIVE) HEART FAILURE Status : Acute (4) Demand ischemia of myocardium Code(s): I24.8 - OTHER FORMS OF ACUTE ISCHEMIC HEART DISEASE Status: Acute (5) Hypotension Status: Acute Qualifiers: Hypotension type: unspecified hypotension type Qualified Code(s): I95.9 - Hypotension, unspecified Comment: due to CHF (6) Pleural effusion Code(s): J90 - PLEURAL EFFUSION, NOT ELSEWHERE CLASSIFIED Status: Chronic - Plan difficultcase-on no CHRISTOPHER/ARB/b-boby -low BP -: 12 lead EKG pending -: discusswith cardiology * .
[2018-03-12] MEDS ORDERED: Furosemide 40 MG/4 ML VIAL SLOW IVP SCH (09:00)
[2018-03-12] MEDS: Famotidine 20 MG TAB PO SCH ×2 (09:27→21:20)
[2018-03-12] MEDS: Senokot S 8.6-50 MG TAB PO SCH ×2 (09:27→21:20)
[2018-03-12] MEDS: Aspirin 81 mg Enteric Coated Tablet PO SCH (09:27)
[2018-03-12] MEDS: TICAGRELOR 90 MG TABLET PO SCH ×2 (09:27→21:20)
[2018-03-12] MEDS: Polyethylene Glycol 3350 17 GM Packet PO SCH (09:28)
--- NOTE | 2018-03-12 11:34 | PRG ---
DATE OF SERVICE: 03/12/2018 SUBJECTIVE: This morning, much more awake, alert, and responsive. He is in no distress. OBJECTIVE: VITAL SIGNS: Respirations 19, pulse 123, temperature 98, and blood pressure 119/76. CHEST: Decreased breath sounds. No wheezing. CARDIAC: Normal S1 and S2. No gallops. ABDOMEN: No masses. IMPRESSION: 1. Congestive heart failure and chronic obstructive pulmonary disease, stable. 2. Severe deconditioning. PLAN: 1. He probably can be transferred to the rehab as per Cardiology. 2. Pulmonary will follow. Continue neb treatments, supportive care. Job ID: [id number]
--- NOTE | 2018-03-12 18:19 | PDOC.CTH ---
Cardiology Progress Note - Subjective Feels good overall. No complaints. Has increased appetite per pt. He did develop elevated HR today. Likely SVT - Objective Vital Signs Temp Pulse Resp BP BP Pulse Ox 03/12/18 16:19 97.5 F L 86 15 114/67 98 03/12/18 13:30 128 H 20 96 03/12/18 12:06 129 H 14 113/78 98 03/12/18 07:40 98.1 F 123 H 19 119/76 98 03/12/18 07:20 120 H 18 97 Admit Weight 90 lb 6.232 oz Weight 112 lb 11.2 oz 03/11/18 03/12/18 03/13/18 06:59 06:59 06:59 Intake Total 2040 1807 Output Total 525 885 Balance 1515 922 - Physical Examination General/Neuro: alert & oriented x3, NAD Neck: carotid US brisk, no JVD present Lungs: CTA, unlabored respirations Heart: PMI normal, RRR Abdomen: NT/ND, soft Extremities: + femoral B - Telemetry Telemetry Rhythm: SVT? - Labs Result Diagrams: 03/10/18 04:16 03/11/18 04:33 Troponin/CKMB CK-MB (CK-2) 1.8 ng/mL (0-6.6) 03/05/18 15:16 Troponin I 0.821 ng/mL (< 0.028) H* 03/05/18 21:21 - Assessment/Plan Ischemia CM SVT vs afib malnutrition Asked EP to see Avoid BB, ARB, ACEI secondary to low BP rehab and placement
[2018-03-12] MEDS ORDERED: Metoprolol Tartrate 25 MG TAB PO SCH (18:45)
[2018-03-12] MEDS: Allopurinol 100 MG TAB PO SCH (21:20)
[2018-03-13] MEDS: TICAGRELOR 90 MG TABLET PO SCH (08:42)
[2018-03-13] MEDS: Polyethylene Glycol 3350 17 GM Packet PO SCH (08:42)
[2018-03-13] MEDS: Aspirin 81 mg Enteric Coated Tablet PO SCH (08:43)
[2018-03-13] MEDS: Famotidine 20 MG TAB PO SCH (08:44)
[2018-03-13] MEDS: Senokot S 8.6-50 MG TAB PO SCH (08:44)
--- NOTE | 2018-03-13 08:45 | PDOC.PN ---
- Subjective Encounter Start Date: 03/13/18 Encounter Start Time: 08:44 Subjective: alert, no chest pain, sob - Objective Resuscitation Status - Order Detail: 03/05/18 21:10 Resuscitation Status Routine Resuscitation Status: FULL: Full Resuscitation MAR Reviewed: Yes Vital Signs & Weight: Vital Signs (12 hours) Temp Pulse Resp BP BP Pulse Ox 03/13/18 07:16 98.1 F 95 20 111/68 97 03/13/18 06:46 93 18 97 03/13/18 03:10 97.5 F L 107 H 16 110/61 95 03/13/18 00:29 101 H 106/65 03/13/18 00:14 100 18 95 Weight Admit Weight 90 lb 6.232 oz Weight 114 lb 8 oz Most Recent Monitor Data Heart Rate from ECG 88 NIBP 127/74 NIBP BP-Mean 91 Respiration from ECG 22 SpO2 100 I&O: 03/12/18 03/13/18 03/14/18 06:59 06:59 06:59 Intake Total 1807 1100 Output Total 885 1525 Balance 922 -425 Result Diagrams: 03/10/18 04:16 03/11/18 04:33 Phys Exam - Physical Examination Neck: no JVD Respiratory: clear to auscultation bilateral Cardiovascular: RRR, no significant murmur Gastrointestinal: soft, positive bowel sounds Musculoskeletal: no edema Dx/Plan (1) CAD (coronary artery disease) Code(s): I25.10 - ATHSCL HEART DISEASE OF [place] CORONARY ARTERY W/O ANG PCTRS Status: Chronic Qualifiers: Coronary Disease-Associated Artery/Lesion type: [place] artery [place] vs. transplanted heart: [place] heart Associated angina: without angina Qualified Code(s): I25.10 - Atherosclerotic heart disease of [place] coronary artery without angina pectoris (2) CKD (chronic kidney disease) stage 2, GFR 60-89 ml/min Code(s): N18.2 - CHRONIC KIDNEY DISEASE, STAGE 2 (MILD) Status: Chronic (3) Acute on chronic systolic ACC/AHA stage C congestive heart failure Code(s): I50.23 - ACUTE ON CHRONIC SYSTOLIC (CONGESTIVE) HEART FAILURE Status : Acute (4) Demand ischemia of myocardium Code(s): I24.8 - OTHER FORMS OF ACUTE ISCHEMIC HEART DISEASE Status: Acute (5) Hypotension Status: Acute Qualifiers: Hypotension type: unspecified hypotension type Qualified Code(s): I95.9 - Hypotension, unspecified Comment: due to CHF (6) Pleural effusion Code(s): J90 - PLEURAL EFFUSION, NOT ELSEWHERE CLASSIFIED Status: Chronic - Plan on asa, metoprolol, brilinta -: rehab pending * .
[2018-03-13] MEDS ORDERED: Metoprolol Tartrate 25 MG TAB PO SCH ×2 (09:00→18:00)
--- NOTE | 2018-03-13 10:52 | PRG ---
DATE OF SERVICE: 03/13/2018 SUBJECTIVE: He is awake, alert, responsive. He is walking, we are trying to get him into a rehab. OBJECTIVE: VITAL SIGNS: His temperature is 98, pulse 95, respirations 20, saturations 97 on room air, and blood pressure 111/68. CHEST: Decreased breath sounds. No wheezing. CARDIAC: Normal S1 and S2. No gallops. ABDOMEN: No masses. IMPRESSION: 1. Bilateral pleural effusion, congestive heart failure. 2. Chronic obstructive pulmonary disease. 3. Severe deconditioning. PLAN: Disposition as per Cardiology. Pulmonary dyer, continue neb treatment as tolerated. Job ID: [id number]
[2018-03-13 11:48] VITALS: BMI 16.9
--- NOTE | 2018-03-13 14:36 | CON ---
DATE OF CONSULTATION: 03/12/2018 TYPE OF REPORT: ELECTROPHYSIOLOGY CONSULTATION REFERRING PHYSICIAN: Steve Escobar MD. HISTORY OF PRESENT ILLNESS: I am seeing Mr. Redmond at our [facility] as an electrophysiology consultation. His problems are; 1. Recurrent narrow complex SVT, likely atrial tachycardia versus sinus tachycardia. 2. Nonsustained ventricular tachycardia. 3. Chronic systolic congestive heart failure with cardiomyopathy. a. 2D echo from 01/20/2018 reveals LVEF 35% to 40%, mild TR. b. Single-vessel coronary artery disease, status post stent placement of circumflex artery. 4. Possible pneumonia. 5. Hypertension. 6. COPD. ALLERGIES: NONE NOTED. MEDICATIONS: At home included; 1. Allopurinol. 2. Lasix. 3. Carvedilol. 4. Lisinopril. 5. Aspirin. 6. Brilinta. SUBJECTIVE: The patient was then admitted on the 06 of March. He is here with shortness of breath and productive cough, sputum as well. He was diagnosed with bibasilar pneumonia from which he has improved with antibiotic treatment. Of note, he had a recent angioplasty and stent placement by Dr. Escobar as above on 02/20/2018. No new angina-like symptoms are documented. No loss of consciousness. He has nonsustained ventricular tachycardia on telemetry on the floor. For a course of last 24 hours, he did develop rapid onset of narrow complex tachycardia with a short [place] long RP type. They are not markedly symptomatic for him. Rates are in the 120s. He does not pass out. No loss of consciousness. No fever, chills, or cough. He does not document any syncopal spells in the past either. He has had a fall in the past. The rest of 12-point system otherwise unremarkable. PAST MEDICAL HISTORY: As above. SOCIAL HISTORY: The patient is a former smoker, quit less than 10 years ago. Denies ETOH or drug abuse. FAMILY HISTORY: Not contributory. PHYSICAL EXAMINATION: VITAL SIGNS: Blood pressure is 114/67, heart rate 85, respiratory rate 15, and temperature 97.5 degrees Fahrenheit. GENERAL: He is alert and oriented man, in no apparent distress. NECK: Supple. Jugular veins are distended. CHEST: Coarse without crackles. HEART: Sounds are regular rate and rhythm. No murmur or gallop. ABDOMEN: Benign. Bowel sounds are positive. EXTREMITIES: Lower extremity without edema, clubbing, or cyanosis. Pulses are adequate. NEUROLOGIC: The patient is nonfocal. MUSCULOSKELETAL: No joint swelling or deformity. SKIN: Without rash. DIAGNOSTIC DATA: 1. CT scan from the 5th revealed right pleural effusion, bibasilar atelectasis and consolidation, small pericardial effusion, and small volume ascites. No other acute process. 2. Chest x-ray from 03/07/2018 reveals bibasilar pneumonia, pleural effusions within the right lung base. 3. EKG from today reveals a narrow complex tachycardia. P-wave is difficult to visualize, it was likely buried in the P-wave. Telemetry strips revealed a relatively rapid onset and offset narrow complex tachycardia, episodes up to 120 beats per minute, which may or may not be provoked by ambulation somewhat difficult to visualize what seems to be preceding the QRS even during the intermittent PVCs. Also earlier telemetry strips do reveal nonsustained ventricular tachycardia 6 to 8 seconds in duration, which was asymptomatic wide complex rhythm. LABORATORY DATA: White cell count are 9.4 on the 8th. On admission it was 12.6. The hemoglobin is 9.6 and platelet count is 470. The INR was 1.1 on the 6th. Sodium 137 on the 9th. Potassium 4.6, BUN 30, and creatinine 0.5. ASSESSMENT/PLAN: Mr. Redmond is a pleasant 72-year-old man with prior history of cardiomyopathy. He had a remote history of LVEF 25% to 30% with an echocardiogram in 2016, but more recently the LVEF somewhat improved at 35% to 40%. Nevertheless, he has nonsustained ventricular tachycardia on telemetry during the acute phase of the pneumonia this admission.Yesterday he developed episodes of rapid narrow complex tachycardia as well this morning in the 120s, mildly symptomatic. Could represent an atrial tachycardia, cannot rule out sinus tachycardia entirely though it was not typical for that based on sudden onset and offset. I discussed these issues with him. The atrial tachycardia is less concerning as the symptom is minimal. I think attempting re-adding beta-blockers, possible less blood pressure lowering than carvedilol, which he could not tolerate in the past would be prudent. I will start him on lower dose. This could be up titrated as tolerated. If more symptomatic episodes not responding to medical therapy are present, EP study ablation could be a consideration. Nonsustained ventricular tachycardia in the setting of mixed ischemic/ nonischemic cardiomyopathy recurring even after revascularization. I did discuss the concern for future occurrences and the option of following the MUSTT trial protocol with an EP study to assess inducibility of sustained ventricular tachycardia if that would present, he will qualify for ICD implant. At this point he is hesitant in this regard, I would like to continue medical therapy. Cardiomyopathy, managed by Dr. Escobar. Continue medical management. It seems that he has been poorly tolerant to beta blockers due to low blood pressures. I will add metoprolol instead of carvedilol. Pneumonia, seems to be resolving as per Primary Team. We will follow with you. Job ID: [id number] [facility]
--- NOTE | 2018-03-13 15:10 | PDOC.CTH ---
Cardiology Progress Note - Subjective Feels better. BP improved overnight. No further episodes of atrial tachycardia - Objective Vital Signs Temp Pulse Pulse Pulse Resp BP BP 03/13/18 13:25 97.7 F 92 18 03/13/18 13:23 93 16 03/13/18 09:30 94 97 110/64 122/66 03/13/18 07:16 98.1 F 95 20 03/13/18 06:46 93 18 03/13/18 03:10 97.5 F L 107 H 16 BP BP Pulse Ox 03/13/18 13:25 114/65 96 03/13/18 13:23 96 03/13/18 09:30 03/13/18 07:16 111/68 98 03/13/18 06:46 97 03/13/18 03:10 110/61 95 Admit Weight 101 lb 14.4 oz Weight 114 lb 8 oz 03/12/18 03/13/18 03/14/18 06:59 06:59 06:59 Intake Total 1807 1100 Output Total 885 1525 Balance 922 -425 - Physical Examination General/Neuro: alert & oriented x3, NAD Neck: no JVD present Lungs: CTA, unlabored respirations Heart: PMI normal, RRR Abdomen: no HSM, NT/ND Extremities: + femoral B - Telemetry Telemetry Rhythm: SR - Labs Result Diagrams: 03/10/18 04:16 03/11/18 04:33 Troponin/CKMB CK-MB (CK-2) 1.8 ng/mL (0-6.6) 03/05/18 15:16 Troponin I 0.821 ng/mL (< 0.028) H* 03/05/18 21:21 - Assessment/Plan ischemic CM atrial tach cardiac cachexia BP more stable on very low dose BB Avoid ARB, ACEI secondary to low BP ok to transfer to rehab if accepted
--- NOTE | 2018-03-13 15:56 | DIS ---
DATE OF ADMISSION: 03/05/2018 DATE OF DISCHARGE: 03/13/2018 TRANSFER OF CARE: PRIMARY CARE PROVIDER: Dr. Obi Silva. DISPOSITION: Discharged to inpatient rehab. DIAGNOSES: Ntegg-vv-yxtuuks systolic heart failure, pneumonia, acute respiratory failure with hypoxia, sepsis of unspecified organism, cardiomyopathy, coronary artery disease without angina pectoris, chronic obstructive pulmonary disease exacerbation, demand ischemia of myocardium, and hypotension. DISCHARGE MEDICATIONS: 1. Brilinta 90 mg p.o. b.i.d. 2. Aspirin 81 mg a day. 3. Zyloprim 100 mg a day. 4. Ambien 5 mg at bedtime p.r.n. 5. Senokot S 1 tab twice a day. 6. MiraLAX 17 g in water daily. 7. Phos-Nak one pack p.o. b.i.d. 8. Metoprolol 6.25 mg p.o. b.i.d. 9. DuoNeb 3 mL q.6 hours RT. 10. Pepcid 20 mg twice a day. 11. Tylenol 650 mg p.o. q.4 hours p.r.n. ALLERGIES: NO KNOWN ALLERGIES. DIET: Heart healthy. CODE STATUS: Full resuscitation. PENDING AT THE TIME OF DISCHARGE: Nothing. HOSPITAL COURSE: The patient was admitted to the [facility] through [facility]. CONSULTATIONS: 1. Dr. Steve Escobar, Cardiology. 2. Dr. Ilir Schreiber, Pulmonology. 3. Dr. Blas Cantu, Electrophysiology. The patient's admitting status was shortness of breath. He had a history of cardiomyopathy, and had a productive cough. A 12-lead EKG showed a rate of 98 with PACs. Chest x-ray was unremarkable. CT angio of the chest with and without contrast showed bilateral pleural effusions with possible pneumonia. White count was elevated at 12.6, hemoglobin 12.2. Electrolytes were unremarkable. Blood sugar 121. Lactate was normal. BNP was 2614. ADMITTING DIAGNOSES: 1. Sepsis syndrome secondary to pneumonia, started on broad-spectrum antibiotics. 2. Rqazl-jz-dmpbuwk respiratory failure. 3. Lqomr-of-wwhpdmn systolic heart failure. 4. Bilateral pleural effusions secondary to above. The patient was started on IV Lasix. Consultation by Dr. Escobar. The patient was hypotensive. Dobutamine and dopamine were started. The patient was taken to the ICU for hypotension. Blood pressure at that time was 87/52. Consultation with Dr. Schreiber. Followup chest x-ray on 03/07/2018, bibasilar pneumonia with pleural effusions and abdominopelvic CT on 03/08/2018, no revealing diagnoses. On 03/08/2018, the patient was off dopamine and blood pressure was stable at 82/49. Chest was clear. Workup was continued for possible malignancy with PSA, CEA and CA-19-9. Progress note by Dr. Steve Escobar. He was continued on dobutamine. On 03/12 progress note, blood pressure was up to 119/76. Pulse was still rapid at 123. He was found to have an SVT. At that time, beta blockers, ARBs, CHRISTOPHER inhibitors were withheld due to his systolic blood pressure being as low as 80 periodically. The patient was eventually placed on low-dose metoprolol. Currently his vital signs; blood pressure is running from 111/68 to 114/65, pulse is in the 90s. He has been evaluated today by Dr. Escobar and by MATT Narayanan. He is considered stable at this time for transfer to rehab. Most recent laboratories, 03/10/2018, white count 9.4, hemoglobin 9.6, platelet count 470,000. Chemistries on 03/11/2018; basic metabolic profile normal except for a BUN of 30. The patient is being transferred to rehab for physical therapy, occupational therapy. He is stable at the present time. On discharge, he will need follow up with Dr. Obi Silva and eventually with Dr. Steve Escobar as mentioned before. The patient is on no ARB or CHRISTOPHER inhibitor due to hypotension. Job ID: [id number]
--- NOTE | 2018-03-13 16:45 | PRG ---
DATE OF SERVICE: 03/13/2018 SUBJECTIVE: Mr. Redmond is doing fair the following day. His palpitations have slightly improved on low-dose beta-boby. OBJECTIVE: VITAL SIGNS: Blood pressure is 122/66, heart rate 94, respirations 16, and temperature 98.1 degrees Fahrenheit. GENERAL: Reveals alert and oriented man, in no apparent distress. NECK: Supple. Jugular vein is not distended. CHEST: Coarse without crackles. HEART: Sounds are regular rate and rhythm. No murmur or gallop. ABDOMEN: Benign. Bowel sounds are positive. EXTREMITIES: Lower extremities, no edema, clubbing, or cyanosis. DIAGNOSTIC STUDIES: Telemetry strips reviewed, revealing episodic signs of atrial tachycardia, but improving. Rate control is seen. ASSESSMENT AND PLAN: Mr. Redmond is a 72-year-old man with prior history of likely mixed ischemic/nonischemic cardiomyopathy, underwent a recent coronary artery stent placement in circumflex artery and also noted to have nonsustained ventricular tachycardia, who was admitted with likely pneumonia and sepsis requiring pressor therapy, now he seems to be doing better. On the other hand, while off pressors in recovery, he developed episodes of sudden onset short [place] type tachycardia which could be atrial tachyarrhythmia, less likely sinus tachycardia. He is not on a beta-boby since recent hypotension int he setting of sepsis, I have advocated resuming low-dose metoprolol as he did not tolerate Coreg before. This could be up titrated as tolerated. In fact, I will attempt to increase hismetoprolol to 12.5mg twice a day. Hence this is nonsustained ventricular tachycardia and left ventricular ejection fraction of 35% to 40%, we discussed the consideration for electrophysiology study and implantable cardioverter-defibrillator implant if inducible ventricular tachycardias occur. For now, he declines this. We will see him as an outpatient for further evaluation of his left ventricular ejection fraction. Indeed he drops below 35%, he will clearly qualify for prophylactic implantable cardioverter-defibrillator. Discussed with Dr. Escobar. We will follow up with you. Job ID: [id number] MTDD
[2018-03-13 17:24] VITALS: BP 114/71; TEMP 98.2
== END 2018-03-13 17:29 | DRG 871 ==
LOC: ERS 14:59 → 2NO 21:57 → CCU 03-06 09:43 → 2NO 03-10 14:05
PROVIDERS: ADMIT Internal Medicine; ATTEND Internal Medicine
DX: A41.1 Sepsis due to other specified staphylococcus (principal); J96.01 Acute respiratory failure with hypoxia; J96.02 Acute respiratory failure with hypercapnia; I50.23 Acute on chronic systolic (congestive) heart failure; E43 Unspecified severe protein-calorie malnutrition; J18.9 Pneumonia, unspecified organism; I13.0 Hypertensive heart and chronic kidney disease with heart failure and stage 1 through stage 4 chronic kidney disease, or unspecified chronic kidney disease; Z68.1 Body mass index [BMI] 19.9 or less, adult; I24.8 Other forms of acute ischemic heart disease; J44.0 Chronic obstructive pulmonary disease with (acute) lower respiratory infection; I42.9 Cardiomyopathy, unspecified; I47.1 Supraventricular tachycardia; R65.20 Severe sepsis without septic shock; N18.2 Chronic kidney disease, stage 2 (mild); I25.10 Atherosclerotic heart disease of native coronary artery without angina pectoris; E83.39 Other disorders of phosphorus metabolism; Z79.82 Long term (current) use of aspirin
CPT/HCPCS: 36415; 71045; 71275; 74177; 80048; 80053; 80074; 81003; 82274; 82378; 82533; 82553; 82805; 83605; 83690; 83735; 83880; 84100; 84484; 85007; 85025; 85027; 85379; 85610; 86301; 87040; 87070; 87077; 87186; 87205; 87389; 93005; 93010; 93798; 94640; 94644; 96365; 96367; 96372; 96375; G0103; G8978-GP-CK; G8979-GP-CI; J0456; J0692; J1100; J1250; J1265; J1650; J1940; J1956; J3370; J7050; J7506; J7611; J7620; S0028

== ENCOUNTER 2018-03-17 12:22 | Inpatient (IN) | payer MEDICARE, OTHER ==
[2018-03-17 13:00] LABS: Hemoglobin 8.4 g/dL (14.0-18.0); Mean Corpuscular HGB CONC 31.2 g/dL (32.0-36.0); Mean Corpuscular Hemoglobin 29.4 pg (27.0-31.0); Mean Corpuscular Volume 94.1 fL (78.0-98.0); Mean Platelet Volume 7.2 fL (7.4-10.4); Platelet Count 400 thou/uL (130-400); RBC Distribution Width 14.3 % (11.5-14.5); Red Blood Cell (RBC) Count 2.85 mill/uL (4.70-6.10)
[2018-03-17 13:01] LABS: White Blood Cell (WBC) Count 32.9 thou/uL (4.8-10.8)
[2018-03-17 13:06] LABS: Bilirubin Negative (Negative); Blood, Urine Large (Negative); Clarity CLOUDY (Clear); Glucose, Urine (Dipstick) Negative (Negative); Leukocyte Trace (Negative); Nitrite Negative (Negative); Protein, Urine (Dipstick) 30 mg/dL (Neg-Trace); Specific Gravity, Urine 1.015 (1.002-1.036)
[2018-03-17 13:08] LABS: Bacteria/HPF None Seen HPF (None Seen); Hyaline Casts/LPF 4-6 HYALINE CAST LPF (0-3 Hyaline); Pathc Cast-AUWi Flag 0.43 (0-2.49); Squamous Epithelial 0-3 HPF (0-3); WBC/HPF 0-3 HPF (0-3)
[2018-03-17 13:10] LABS: Yeast-AUWi Flag 76.7 (0-25.0)
[2018-03-17 13:20] LABS: ALT (SGPT) 28 U/L (8-55); AST (SGOT) 34 U/L (5-34); Albumin 2.7 g/dL (3.4-4.8); Alkaline Phosphatase 112 U/L (40-150); Anion Gap 15 mmol/L (10-20); BUN (Urea Nitrogen) 49 mg/dL (8.4-25.7); Bilirubin, Total 1.4 mg/dL (0.2-1.2); Calc. Creatinine Clearance 0 mL/min (70-130); Calcium 9.6 mg/dL (7.8-10.44); Carbon Dioxide 36 mmol/L (23-31); Chloride 96 mmol/L (98-107); Estimated GFR-MDRD 44; Globulin 3.8 g/dL (2.4-3.5); Glucose 100 mg/dL (80-115); Potassium 5.5 mmol/L (3.5-5.1); Protein, Total 6.5 g/dL (5.8-8.1); Sodium 141 mmol/L (136-145)
[2018-03-17 13:22] LABS: RBC/HPF GREATER THAN 50-TNTC HPF (0-3)
[2018-03-17 13:23] LABS: Yeast-All Forms None Seen HPF (None Seen)
[2018-03-17 13:25] LABS: Band 31 % (5-11); Lymphocytes 1 % (21-51); MDiff Complete? YES; Metamyelocyte 1 % (0-0); Monocytes 5 % (0-10); Neutrophil 62 % (42-75); PLT Morphology Comment Appears Adequate; Polychromasia SLIGHT = 2-3 cells (100X) (0-2/hpf)
[2018-03-17 13:47] LABS: CKMB 2.6 ng/mL (0-6.6)
[2018-03-17] MEDS ORDERED: Norepinephrine 8 MG/0.9% NS 250 ML ONE (14:24)
[2018-03-17] MEDS ORDERED: Aspirin 325 MG TAB ONE (14:24)
[2018-03-17] MEDS ORDERED: Norepinephrine 4 MG/4 ML VIAL ONE (14:24)
--- NOTE | 2018-03-17 14:42 | RAD ---
RADIOGRAPH CHEST 1 VIEW: Date: 03/17/18 Time: 1323 hours HISTORY: Status post central line placement in 72-year-old male. COMPARISON: 03/17/18 0816 hours FINDINGS: There is a new vertically oriented central vascular catheter descending from the medial aspect of the right neck, with distal tip overlying the expected location of the lower portion of the SVC or SVC/r ight atrial junction. There is no other interval change. No pneumothorax. IMPRESSION: Right-sided central vascular catheter placement without pneumothorax. TOMI [] POS: PAUL
[2018-03-17 16:48] LABS: Lactic Acid 2.5 mmol/L (0.5-2.2)
[2018-03-17 16:59] LABS: Critical Call Chem Troponin I RESULT DECREASING; Troponin I 1.113 ng/mL (< 0.028)
[2018-03-17] MEDS ORDERED: SYSTANE 3.5 GM TUBE EA EYE PRN (17:09)
[2018-03-17] MEDS ORDERED: Ondansetron PF 4 MG/2 ML Vial IVP PRN (17:15)
[2018-03-17] MEDS ORDERED: Ondansetron ODT 4 MG TAB PO PRN (17:15)
[2018-03-17] MEDS ORDERED: Senokot S 8.6-50 MG TAB PO PRN (17:15)
[2018-03-17] MEDS ORDERED: Vancomycin HCl 1 GM in Premix Bag 1 BAG IVPB SCH ×2 (17:15→17:45)
[2018-03-17] MEDS ORDERED: Acetaminophen 325 MG TAB PO PRN (17:15)
--- NOTE | 2018-03-17 17:56 | HP ---
PRIMARY CARE PHYSICIAN: Obi Silva DO PRIMARY COAL LOADER: Dr. Escobar. CHIEF COMPLAINT: Generalized weakness, nausea, vomiting, diarrhea with hypotension and tachycardia at the inpatient rehab facility. HISTORY OF PRESENT ILLNESS: The patient is a 72-year-old male with hypertension, chronic systolic heart failure, and coronary artery disease, presented to the emergency room from inpatient rehab facility with above symptoms. He was discharged from this facility four days ago with diagnosis of congestive heart failure exacerbation, pneumonia, as well as respiratory failure. He was on dobutamine and dopamine drip. Over the last 12 to 24 hours, the patient has been feeling generally weak and fatigued. He had four episodes of diarrhea this morning. He also had nausea with one episode of vomiting. He has not been eating well. He has some GI cramping earlier today that has somewhat improved. He also had cough that was productive of scanty mucus. He also felt somewhat short of breath. He was found to have tachycardia along with low blood pressure for which he was started on vancomycin and Zosyn at the rehab facility. In the emergency room, his initial vital signs showed temperature 99.9, respirations 17, pulse rate of 100 with a blood pressure of 86/48. His blood pressure in the ER was 74/51. A central line was placed. He is currently on Levophed. He also received aspirin and 500 mL of normal saline. He received Zosyn and vancomycin at the rehab facility. One dose of 750 mg of Levaquin was administered in the emergency room. PAST MEDICAL HISTORY: 1. Chronic systolic heart failure. 2. Coronary artery disease. 3. Chronic kidney disease stage 2. 4. Recent hospitalization for respiratory failure secondary to pneumonia. 5. Generalized deconditioning. 6. Severe protein calorie malnutrition. 7. Significant weight loss with negative chest x-ray, CT chest, and CT abdomen for malignancy. Tumor markers were also negative recently. PAST SURGICAL HISTORY: Cardiac catheterization. ALLERGIES: NO KNOWN DRUG ALLERGIES. CURRENT MEDICATIONS: The patient was discharged on the following medications to inpatient rehabilitation. 1. Aspirin 81 mg daily. 2. Brilinta 90 mg b.i.d. 3. Allopurinol 100 mg daily. 4. Ambien as needed. 5. Senokot-S 1 tablet twice a day. 6. MiraLAX daily. 7. Metoprolol 6.25 mg twice a day. 8. DuoNeb every 6 hourly. 9. Pepcid 20 mg b.i.d. 10. Tylenol as needed. 11. Phos-NaK 1 packet b.i.d. SOCIAL HISTORY: The patient currently lives at home with his family. He denies current use of smoking, alcohol, or drug use. He is a former smoker. He makes his own decision with the help of his family. He is full code. FAMILY HISTORY: Family history is negative for premature coronary artery disease. REVIEW OF SYSTEMS: All other review of systems was reviewed and were found negative. PHYSICAL EXAMINATION: VITAL SIGNS: As discussed above. GENERAL: A 72-year-old male, cachectic, on Levophed drip, in no significant respiratory distress. HEENT: Head; atraumatic, normocephalic. Sclerae anicteric. Dry mucous membranes. No oral lesion. NECK: Supple. JVD appears to be elevated. No carotid bruit. LUNGS: Showed diffuse rhonchi bilaterally with bibasilar rales. There was scattered wheezing as well. No significant accessory muscle use. HEART: S1 and S2 present. Regular rate and rhythm. Tachycardic, 2/6 systolic murmur over the mitral area. ABDOMEN: Soft and nontender. Bowel sounds present. No rebound, guarding, or costovertebral angle tenderness. EXTREMITIES: No edema or calf tenderness. NEUROLOGIC: Grossly nonfocal. Moves all 4 extremities. PSYCHIATRY: Alert, awake, oriented x3. SKIN: Warm and dry. LYMPH NODES: No palpable lymph nodes in the neck. Peripheral, vascular, radial pulses palpable bilaterally. Low volume. LABORATORY FINDINGS: CBC showed WBC of 32.9 with hemoglobin 8.4, 31% bandemia. WBC 3 days ago was 10.5. ABGs showed pH 7.42 with pCO2 59.2, pO2 of 99, bicarbonate 37.6 on 28% FiO2. Chemistry showed sodium 141, potassium 5.5, chloride 96, bicarb 36, BUN 46, creatinine 1.58. His baseline creatinine was 0.84. Troponin 1.2 with normal CK-MB. Total bilirubin 1.4, it was 0.6 last week. Lactic acid 2.3. Repeat lactic acid was 2.5. Urinalysis was negative for wbc or bacteria. Influenza screen was negative. DIAGNOSTIC DATA: Chest x-ray by my review showed pulmonary vascular congestion with consolidations in bilateral lower lobe and right middle lobe. Telemetry monitoring by my review showed sinus rhythm. IMPRESSION: 1. Severe sepsis with acute organ dysfunction/septic shock secondary to pneumonia, rule out Clostridium difficile colitis. 2. Acute kidney injury on chronic kidney disease stage 2. 3. Lactic acidosis. 4. Elevated troponin, probably secondary to demand ischemia from hypotension. 5. Severe protein calorie malnutrition. 6. Hyperkalemia. 7. Abnormal LFTs probably secondary to passive hepatic congestion. 8. Chronic systolic heart failure, probably compensated. 9. Coronary artery disease on aspirin and Brilinta. 10. Significant weight loss recently of unclear etiology. 11. Physical deconditioning. 12. Chronic obstructive pulmonary disease. 13. Chronic normochromic normocytic anemia of unclear etiology. PLAN: The patient will be monitored in the intensive care unit. We will continue Levophed drip. He received vancomycin and Zosyn at the rehab. He is receiving Levaquin at this time. We will add oral vancomycin as well as IV Flagyl for possible C. diff given his history of diarrhea earlier today. Antibiotics will be adjusted based on the renal function. We will repeat lactic acid in a.m. Gentle IV fluids given his history of congestive heart failure. We will recheck troponin in a.m. We will check cortisol level. We will continue empiric antibiotics. Continue aspirin and Brilinta. Cardiology and Critical Care consultation in a.m. Plan of care was discussed with the patient in detail. He stated understanding. Job ID: [id number]
[2018-03-17] MEDS: Sodium Bicarbonate 150 MEQ in Dextrose 5% in Water 1,000 ML IV SCH (19:34)
[2018-03-17] MEDS: Vancomycin HCl 750 MG in Sodium Chloride 0.9% 250 ML 250 ML IVPB SCH (19:40)
[2018-03-17] MEDS: Cefepime 1 GM in Sodium Chloride 0.9% 100 ML IVPB SCH (19:41)
[2018-03-17] MEDS: Vancomycin HCl 25 MG/ML Oral PO SCH ×2 (19:43→23:13)
[2018-03-17] MEDS ORDERED: Famotidine 20 MG TAB PO SCH ×2 (21:00)
[2018-03-17] MEDS: Atorvastatin Calcium 20 MG TAB PO SCH (21:27)
[2018-03-17] MEDS: metroNIDAZOLE 500 MG in Premix Bag 1 BAG IVPB SCH (21:27)
[2018-03-17] MEDS: guaiFENesin ER 600 MG TAB PO SCH (21:28)
[2018-03-17] MEDS: TICAGRELOR 90 MG TABLET PO SCH (21:28)
[2018-03-17] MEDS: Famotidine 20 MG TAB PO SCH (21:28)
[2018-03-17] MEDS: Saccharomyces boulardii 250 MG CAP PO SCH (21:28)
[2018-03-18] MEDS: Zolpidem Tartrate 5 MG TAB PO PRN ×2 (00:12→21:51)
[2018-03-18] MEDS: metroNIDAZOLE 500 MG in Premix Bag 1 BAG IVPB SCH ×3 (04:18→19:58)
[2018-03-18 05:09] LABS: Phosphorus 5.6 mg/dL (2.3-4.7)
[2018-03-18 05:11] LABS: ALT (SGPT) 38 U/L (8-55); AST (SGOT) 53 U/L (5-34); Albumin 2.5 g/dL (3.4-4.8); Alkaline Phosphatase 94 U/L (40-150); Anion Gap 14 mmol/L (10-20); BUN (Urea Nitrogen) 64 mg/dL (8.4-25.7); Bilirubin, Total 0.9 mg/dL (0.2-1.2); Calc. Creatinine Clearance 36 mL/min (70-130); Calcium 8.9 mg/dL (7.8-10.44); Carbon Dioxide 34 mmol/L (23-31); Chloride 96 mmol/L (98-107); Estimated GFR-MDRD 45; Globulin 3.7 g/dL (2.4-3.5); Glucose 107 mg/dL (80-115); Potassium 5.5 mmol/L (3.5-5.1); Protein, Total 6.2 g/dL (5.8-8.1); Sodium 138 mmol/L (136-145)
[2018-03-18 05:20] LABS: Band 8 % (5-11); Critical Call Chem Troponin I RESULT DECREASING; Hemoglobin 7.3 g/dL (14.0-18.0); Lymphocytes 2 % (21-51); MDiff Complete? YES; Mean Corpuscular HGB CONC 30.1 g/dL (32.0-36.0); Mean Corpuscular Hemoglobin 28.4 pg (27.0-31.0); Mean Corpuscular Volume 94.2 fL (78.0-98.0); Mean Platelet Volume 7.5 fL (7.4-10.4); Monocytes 4 % (0-10); Neutrophil 86 % (42-75); PLT Morphology Comment Appears Increased; Platelet Count 415 thou/uL (130-400); RBC Distribution Width 14.2 % (11.5-14.5); RBC Morphology Normal; Red Blood Cell (RBC) Count 2.59 mill/uL (4.70-6.10); Troponin I 0.967 ng/mL (< 0.028); White Blood Cell (WBC) Count 22.9 thou/uL (4.8-10.8)
[2018-03-18] MEDS: Cefepime 1 GM in Sodium Chloride 0.9% 100 ML IVPB SCH ×2 (05:29→17:05)
[2018-03-18] MEDS: Vancomycin HCl 25 MG/ML Oral PO SCH ×4 (05:30→23:53)
[2018-03-18] MEDS: guaiFENesin ER 600 MG TAB PO SCH ×2 (09:49→20:00)
[2018-03-18] MEDS: Saccharomyces boulardii 250 MG CAP PO SCH ×2 (09:49→20:00)
--- NOTE | 2018-03-18 10:05 | RAD ---
SINGLE VIEW OF THE CHEST: COMPARISON: 03/17/2018. HISTORY: Shortness of breath with pneumonia and CHF. FINDINGS: A single view of the chest shows an enlarged but stable cardiomediastinal silhouette. The central ve nous catheter is unchanged in position. Increased interstitial markings are present. There appear t o be small bilateral pleural effusions. IMPRESSION: Stable exam. POS: [facility]
[2018-03-18] MEDS: TICAGRELOR 90 MG TABLET PO SCH ×2 (10:19→21:51)
[2018-03-18] MEDS: Aspirin 81 mg Enteric Coated Tablet PO SCH (10:19)
[2018-03-18 10:47] LABS: Anion Gap 15 mmol/L (10-20); BUN (Urea Nitrogen) 65 mg/dL (8.4-25.7); Calc. Creatinine Clearance 36 mL/min (70-130); Calcium 8.9 mg/dL (7.8-10.44); Carbon Dioxide 32 mmol/L (23-31); Chloride 97 mmol/L (98-107); Estimated GFR-MDRD 46; Glucose 116 mg/dL (80-115); Potassium 5.3 mmol/L (3.5-5.1); Sodium 139 mmol/L (136-145)
[2018-03-18] MEDS: Norepinephrine 8 MG/0.9% NS 250 ML IVPB PRN (10:53)
[2018-03-18] MEDS: Sodium Bicarbonate 150 MEQ in Dextrose 5% in Water 1,000 ML IV SCH (15:52)
--- NOTE | 2018-03-18 18:24 | CON ---
DATE OF CONSULTATION: 03/18/2018 HISTORY OF PRESENT ILLNESS: Mr. Redmond is a 72-year-old gentleman with chronic systolic heart failure and coronary artery disease. He was recently discharged from the hospital. He presented with multiple episodes of diarrhea and 1 episode of nausea and vomiting. He subsequently was admitted. He says he feels better. PAST MEDICAL HISTORY: Remarkable for; 1. Heart failure. 2. Coronary artery disease. 3. Chronic kidney disease. 4. Pneumonia in the recent past. 5. Deconditioning and cachexia. 6. History of cardiac catheterization in the past. ALLERGIES: HE HAS NO DRUG ALLERGIES. MEDICATIONS: Prior to admission, he was on; 1. Aspirin. 2. Brilinta. 3. Allopurinol. 4. Ambien. 5. Senokot. 6. MiraLAX. 7. Metoprolol. 8. DuoNeb. 9. Pepcid. 10. Tylenol. 11. Sodium phosphate. SOCIAL HISTORY: He apparently lives at home, but was not at home, was in rehab. He is not a smoker or drug user. He smoked in the past. FAMILY HISTORY: Negative for lung disease in early age. REVIEW OF SYSTEMS: 10-point review of systems completed, otherwise negative. He denies shortness of breath or chest pain. He denies abdominal pain at the time of my exam. PHYSICAL EXAMINATION: GENERAL: He is extremely cachectic appearing. VITAL SIGNS: Heart rate is 108, blood pressure is 98/53, respiratory rate is in the teens, oximetry is 94% to 96%. HEENT: He has temporal muscle wasting. His sclerae are anicteric. Extraocular movements are full. NECK: Supple. No lymphadenopathy. LUNGS: Clear. HEART: Regular rhythm. S1 and S2 are normal. He has grade 2/6 systolic murmur. ABDOMEN: Soft and nontender. EXTREMITIES: Without clubbing, cyanosis, or edema. LABORATORY DATA: White count 22.9, hemoglobin 7.3, and platelets 415,000. Sodium 139, potassium 5.3, chloride 97, bicarb 32, BUN 65, creatinine 1.5, and glucose 116. His creatinine has been as low as 0.72 this month. IMPRESSION: 1. His cachexia is probably the biggest issue he is facing. 2. Intravascular volume depletion. 3. Nausea, vomiting, and diarrhea that is resolved for now. 4. Chronic systolic cardiomyopathy. He has an increase in interstitial markings and effusions, but his radiograph compared to past radiograph is not significantly changed. PLAN: He needs to be gently rehydrated. I doubt he has pneumonia. As cultures come back, his antibiotics can be simplified. This is a 70 minute consult, with greater than 50% of time spent on unit in coordination of care. Job ID: [id number] [email or web address]
[2018-03-18] MEDS: Vancomycin HCl 750 MG in Sodium Chloride 0.9% 250 ML 250 ML IVPB SCH (19:59)
[2018-03-18] MEDS: Atorvastatin Calcium 20 MG TAB PO SCH (20:00)
[2018-03-18] MEDS: Famotidine 20 MG TAB PO SCH (20:00)
[2018-03-18] MEDS: HYDROcodone/Acetaminophen 5/325 mg Tablet PO PRN (21:51)
--- NOTE | 2018-03-18 22:47 | PDOC.PN ---
- Subjective Encounter Start Date: 03/18/18 Encounter Start Time: 08:45 Patient seen and examined for Sepsis. Diarrhea resolved. No new complaints. No overnight events - Objective Resuscitation Status - Order Detail: 03/17/18 17:15 Resuscitation Status Routine Resuscitation Status: FULL: Full Resuscitation MAR Reviewed: Yes Vital Signs & Weight: Vital Signs (12 hours) Temp Pulse Resp Pulse Ox 03/18/18 22:06 108 H 26 H 100 03/18/18 20:00 96 03/18/18 19:00 97.6 F 03/18/18 18:20 109 H 16 03/18/18 16:00 97.9 F 03/18/18 15:40 110 H 25 H 100 03/18/18 11:02 109 H 20 99 03/18/18 11:00 96.9 F L Weight Weight 123 lb 14.397 oz Most Recent Monitor Data Heart Rate from ECG 109 NIBP 106/62 NIBP BP-Mean 76 Respiration from ECG 18 SpO2 100 I&O: 03/17/18 03/18/18 03/19/18 06:59 06:59 06:59 Intake Total 1619 2226 Output Total 260 815 Balance 1359 1411 Result Diagrams: 03/19/18 04:32 03/19/18 04:32 EKG Reviewed by me: Yes (Tele SR) Phys Exam - Physical Examination Constitutional: NAD (on Levophed) Respiratory: no wheezing, no rhonchi Cardiovascular: RRR, no rub Gastrointestinal: soft, non-tender, positive bowel sounds Musculoskeletal: no edema Neurological: moves all 4 limbs Dx/Plan - Plan DVT proph w/SCDs 1. Severe sepsis with acute organ dysfunction/septic shock secondary to pneumonia/? Clostridium difficile colitis. 2. Acute kidney injury on chronic kidney disease stage 2. 3. Lactic acidosis. 4. Elevated troponin, probably secondary to demand ischemia from hypotension. 5. Severe protein calorie malnutrition. 6. Hyperkalemia. 7. Abnormal LFTs probably secondary to passive hepatic congestion. 8. Chronic systolic heart failure, probably compensated. 9. Coronary artery disease on aspirin and Brilinta. 10. Significant weight loss recently of unclear etiology. 11. Physical deconditioning. 12. Chronic obstructive pulmonary disease. 13. Chronic normochromic normocytic anemia of unclear etiology. PLAN: Cont Atbx/Pressors Cont PO Vancomycin for ?Cdiff Cont Levophed Cont IVF Cont current meds as below CCU monitoring AM labs Review of Systems - Review of Systems Constitutional: weakness (gen). negative: fever, chills, sweats, malaise, other Respiratory: negative: Cough, Dry, Shortness of Breath, Hemoptysis, SOB with Excertion, Pleuritic Pain, Sputum, Wheezing Cardiovascular: negative: chest pain, palpitations, orthopnea, paroxysmal nocturnal dyspnea, edema, light headedness, other Gastrointestinal: negative: Nausea, Vomiting, Abdominal Pain, Diarrhea, Constipation, Melena, Hematochezia, Other - Medications/Allergies Allergies/Adverse Reactions: Allergies Allergy/AdvReac Type Severity Reaction Status Date / Time No Known Drug Allergies Allergy Verified 03/05/18 23:12 Medications: Current Medications Acetaminophen (Tylenol) 650 mg PO Q4H PRN PRN Reason: Headache/Fever/Mild Pain (1-3) Hydrocodone Bitart/Acetaminophen ([place] 5/325) 1 tab PO Q6H PRN PRN Reason: Moderate Pain (4-6) Last Admin: 03/18/18 21:51 Dose: 1 tab Albuterol/Ipratropium (Duoneb) 3 ml NEB [id number] [facility] Last Admin: 03/18/18 22:06 Dose: 3 ml Aspirin (Ecotrin) 81 mg PO DAILY [facility] Last Admin: 03/18/18 10:19 Dose: Not Given Atorvastatin Calcium (Lipitor) 20 mg PO HS [facility] Last Admin: 03/18/18 20:00 Dose: 20 mg Famotidine (Pepcid) 20 mg PO 2100 [facility] Last Admin: 03/18/18 20:00 Dose: 20 mg Guaifenesin (Mucinex) 600 mg PO Q12HR [facility] Last Admin: 03/18/18 20:00 Dose: 600 mg Sodium Bicarbonate 150 meq/ (Dextrose/Water) 1,150 mls @ 50 mls/hr IV .Q23H [facility] Last Admin: 03/18/18 15:52 Dose: 1,150 mls Cefepime HCl 1 gm/ Sodium (Chloride) 100 mls @ 200 mls/hr IVPB 0600,1800 [facility] Last Admin: 03/18/18 17:05 Dose: 100 mls Metronidazole 500 mg/ Device 100 mls @ 100 mls/hr IVPB 0400,1200,2000 [facility] Last Admin: 03/18/18 19:58 Dose: 100 mls Norepinephrine Bitartrate (Levophed) 250 mls @ 0 mls/hr IVPB PRN PRN; Protocol PRN Reason: To maintain MAP > 65 Last Admin: 03/18/18 10:53 Dose: 250 mls Vancomycin HCl 750 mg/ Sodium (Chloride) 250 mls @ 250 mls/hr IVPB 2000 [facility] Last Admin: 03/18/18 19:59 Dose: 250 mls Mineral Oil/White Petrolatum (Systane Nighttime Eye Ointment) 0 gm EA EYE PRN PRN PRN Reason: Dry Eyes Miscellaneous Medication (Pharmacy To Dose) 1 each IVPB ONE PRN PRN Reason: Pharmacy to dose Stop: 04/16/18 19:01 Ondansetron HCl (Zofran Odt) 4 mg PO Q6H PRN PRN Reason: Nausea/Vomiting Ondansetron HCl (Zofran) 4 mg IVP Q6H PRN PRN Reason: Nausea/Vomiting Saccharomyces Boulardii (Florastor) 250 mg PO BID [facility] Last Admin: 03/18/18 20:00 Dose: 250 mg Senna/Docusate Sodium (Senokot S) 2 tab PO BID PRN PRN Reason: Constipation Sodium Chloride (Flush - Normal Saline) 10 ml IVF PRN PRN PRN Reason: Saline Flush Ticagrelor (Brilinta) 90 mg PO BID [facility] Last Admin: 03/18/18 21:51 Dose: 90 mg Vancomycin HCl (First Vancomycin) 250 mg PO Q6HR [facility] Last Admin: 03/18/18 17:05 Dose: 250 mg Zolpidem Tartrate (Ambien) 5 mg PO HSPRN PRN PRN Reason: Insomnia Last Admin: 03/18/18 21:51 Dose: 5 mg
[2018-03-19] MEDS: metroNIDAZOLE 500 MG in Premix Bag 1 BAG IVPB SCH ×3 (04:22→21:26)
[2018-03-19 05:04] LABS: ALT (SGPT) 35 U/L (8-55); AST (SGOT) 37 U/L (5-34); Albumin 2.3 g/dL (3.4-4.8); Alkaline Phosphatase 84 U/L (40-150); Anion Gap 11 mmol/L (10-20); BUN (Urea Nitrogen) 59 mg/dL (8.4-25.7); Bilirubin, Total 0.5 mg/dL (0.2-1.2); Calc. Creatinine Clearance 46 mL/min (70-130); Calcium 8.4 mg/dL (7.8-10.44); Carbon Dioxide 36 mmol/L (23-31); Chloride 95 mmol/L (98-107); Estimated GFR-MDRD 60; Globulin 3.5 g/dL (2.4-3.5); Glucose 138 mg/dL (80-115); Magnesium 1.9 mg/dL (1.6-2.6); Phosphorus 4.6 mg/dL (2.3-4.7); Potassium 4.5 mmol/L (3.5-5.1); Protein, Total 5.8 g/dL (5.8-8.1); Sodium 137 mmol/L (136-145)
[2018-03-19 05:12] LABS: Hemoglobin 6.8 g/dL (14.0-18.0); Hypochromia SLIGHT = 6-15 cells (100X) (0-5/hpf); Lymphocytes 4 % (21-51); MDiff Complete? YES; Mean Corpuscular HGB CONC 30.6 g/dL (32.0-36.0); Mean Corpuscular Hemoglobin 29.2 pg (27.0-31.0); Mean Corpuscular Volume 95.5 fL (78.0-98.0); Mean Platelet Volume 7.4 fL (7.4-10.4); Neutrophil 96 % (42-75); PLT Morphology Comment Appears Adequate; Platelet Count 349 thou/uL (130-400); Red Blood Cell (RBC) Count 2.33 mill/uL (4.70-6.10); White Blood Cell (WBC) Count 15.6 thou/uL (4.8-10.8)
[2018-03-19] MEDS: Cefepime 1 GM in Sodium Chloride 0.9% 100 ML IVPB SCH ×2 (05:44→17:33)
[2018-03-19] MEDS: Vancomycin HCl 25 MG/ML Oral PO SCH ×4 (05:56→23:30)
[2018-03-19] MEDS ORDERED: Furosemide 20 MG/2 ML VIAL SLOW IVP SCH (08:15)
[2018-03-19] MEDS: Aspirin 81 mg Enteric Coated Tablet PO SCH (09:00)
[2018-03-19] MEDS: TICAGRELOR 90 MG TABLET PO SCH ×2 (09:01→21:22)
[2018-03-19] MEDS: guaiFENesin ER 600 MG TAB PO SCH ×2 (09:01→21:22)
[2018-03-19] MEDS: Saccharomyces boulardii 250 MG CAP PO SCH ×2 (09:01→21:20)
--- NOTE | 2018-03-19 09:04 | RAD ---
CHEST 1 VIEW: INDICATION: History of shortness of breath and pneumonia. COMPARISON: Prior exam dated 03/08/2018. FINDINGS: Bibasilar pleural parenchymal opacities persist. Right IJ central venous catheter is unchanged. Car diomegaly with mild pulmonary vascular congestion is similar-appearing. No pneumothorax is evident. IMPRESSION: Stable examination to the 03/18/2018 exam. POS: [facility]
--- NOTE | 2018-03-19 09:48 | PRG ---
DATE OF SERVICE: 03/19/2018 SUBJECTIVE: He is a 72-year-old gentleman, who was recently discharged from the hospital, presents with hypotension and diarrhea. His diarrhea has improved. He remains hypotensive. X-ray showed bilateral pleural effusion. His admission oxygen saturation 99% on 2 L, blood pressure was 86/48, temperature was 99, and respirations 17. All cultures are so far negative. OBJECTIVE: GENERAL: This morning, he is awake, alert, and responsive. VITAL SIGNS: Saturations are 100% on 2 L, pulse of 110, blood pressure 80/70, and respirations 18. His urine output has been good 3685 in and . CHEST: Decreased breath sounds. No wheezing. CARDIAC: Normal S1 and S2. No gallops. ABDOMEN: No masses. LABORATORY DATA: Creatinine is 1.19 and BUN is 59. H and H are 6.8 and 22. X-ray showed bilateral pleural effusion. IMPRESSION: 1. Hypotension probably secondary to volume depletion. 2. Rule out relative adrenal insufficiency. 3. Mild cachexia. 4. Cardiomyopathy. PLAN: The patient's overall prognosis is grave. I started low-dose steroids for relative adrenal insufficiency. Deescalate antibiotics once we get all cultures back. Discuss with the when she comes regarding code status. Job ID: [id number]
[2018-03-19 11:08] VITALS: BP 105/62
[2018-03-19] MEDS: Hydrocortisone Sod Succ/PF 100 mg/2 ml Vial IVP SCH ×3 (12:01→23:28)
[2018-03-19 12:34] VITALS: BMI 19.1
[2018-03-19] MEDS: Sodium Bicarbonate 150 MEQ in Dextrose 5% in Water 1,000 ML IV SCH (13:32)
[2018-03-19] MEDS: Norepinephrine 8 MG/0.9% NS 250 ML IVPB PRN (14:06)
--- NOTE | 2018-03-19 14:27 | PQF ---
DATE: 03-19-18 ATTN: DR. YANNI SOTO Please exercise your independent, professional judgment in responding to the clarification form. Clinical indicators are provided on the bottom of this form for your review Please check appropriate box(s): I (concur) with the Wound Care findings as stated below. [ ] Pressure Ulcer: (Stage I: Erythema; Stage II: Partial thickness; Stage III : Full thickness; Stage IV: Necrosis to muscle/bone) [ ] Location: POA: [ ] Yes [ ] No[ ] Unable to determine Stage (I to IV): (Left Right Bilateral N/A ) [ ] No pressure ulcer diagnosis [ ] Deep tissue injury [ ] Other diagnosis [ ] Unable to determine In addition, please specify: Present on Admission (POA): [ ] Yes [ ] No [ ] Unable to determine For continuity of documentation, please document condition throughout progress notes and discharge summary. Thank You. CLINICAL INDICATORS - SIGNS / SYMPTOMS / LABS WCT ASSESSMENT 03-18-18: SACRAL PRESSURE ULCER, STAGE 3, PT PRESENTS WITH A HEALED STAGE 3 PRESSURE ULCER TO SACRAL. NO OPEN AREAS. RISK FACTORS: H&P: WEAK AND FATIGUED, DIARRHEA, SOB, TACHYCARDIA, GENERALIZED WEAKNESS, PHYSICAL DECONDITIONING, HX OF SEVERE PROTEIN CALORIE MALNUTRITION, RECENT ADMISSION FOR CHF EXACERBATION, PNEUMONIA, WELL RESPIRATORY FAILURE. TREATMENTS:WCT ASSESSMENT 03-18-18: [employer] APPLIED WITH A FOAM DRESSING (This form is maintained as a part of the permanent medical record) 2014 [employer] All Rights Reserved [email or web address] Office: [phone] [facility]PITALOsorio
[2018-03-19 19:33] LABS: Vancomycin, Trough 13.9 ug/mL
[2018-03-19] MEDS: Vancomycin HCl 750 MG in Sodium Chloride 0.9% 250 ML 250 ML IVPB SCH (21:10)
[2018-03-19] MEDS: Atorvastatin Calcium 20 MG TAB PO SCH (21:19)
[2018-03-19] MEDS: Famotidine 20 MG TAB PO SCH (21:20)
--- NOTE | 2018-03-19 22:53 | PDOC.PN ---
- Subjective Encounter Start Date: 03/19/18 Encounter Start Time: 09:30 Patient seen and examined for Sepsis/hypotension. On Levophed. No new complaints. No overnight events - Objective Resuscitation Status - Order Detail: 03/17/18 17:15 Resuscitation Status Routine Resuscitation Status: FULL: Full Resuscitation MAR Reviewed: Yes Vital Signs & Weight: Vital Signs (12 hours) Temp Pulse Pulse Resp BP Pulse Ox 03/19/18 21:43 104 H 14 100 03/19/18 20:00 98.0 F 03/19/18 18:33 103 H 19 100 03/19/18 16:00 97.8 F 03/19/18 14:30 101 H 16 97 03/19/18 11:08 97.7 F 108 H 17 105/62 96 03/19/18 11:00 97.7 F Weight Admit Weight 122 lb Weight 129 lb 3.054 oz Most Recent Monitor Data Heart Rate from ECG 104 NIBP 108/59 NIBP BP-Mean 75 Respiration from ECG 17 SpO2 94 I&O: 03/18/18 03/19/18 03/20/18 06:59 06:59 06:59 Intake Total 1619 3685 2211 Output Total 260 1085 825 Balance 1359 2600 1386 Result Diagrams: 03/20/18 04:23 03/20/18 04:23 EKG Reviewed by me: Yes (Tele SR) Phys Exam - Physical Examination Constitutional: NAD Respiratory: no wheezing, no rhonchi Dec AE at bases Cardiovascular: RRR, no rub Gastrointestinal: soft, non-tender, positive bowel sounds Neurological: moves all 4 limbs Dx/Plan - Plan DVT proph w/SCDs 1. Severe sepsis with acute organ dysfunction/septic shock secondary to pneumonia/? Clostridium difficile colitis. 2. Acute kidney injury on chronic kidney disease stage 2. 3. Lactic acidosis. 4. Elevated troponin, probably secondary to demand ischemia from hypotension. 5. Severe protein calorie malnutrition. 6. Hyperkalemia. 7. Abnormal LFTs probably secondary to passive hepatic congestion. 8. Chronic systolic heart failure, probably compensated. 9. Coronary artery disease on aspirin and Brilinta. 10. Significant weight loss recently of unclear etiology. 11. Physical deconditioning. 12. Chronic obstructive pulmonary disease. 13. Chronic normochromic normocytic anemia of unclear etiology. 14. Sacral pressure ulcer Stage 3 ( present on admission) PLAN: Cont Levophed with Steroids Cont PO Vancomycin for ?Cdiff - diarrhea resolved Cont current meds as below AM labs Consult Palliative care Review of Systems - Review of Systems Respiratory: negative: Cough, Dry, Shortness of Breath, Hemoptysis, SOB with Excertion, Pleuritic Pain, Sputum, Wheezing Cardiovascular: negative: chest pain, palpitations, orthopnea, paroxysmal nocturnal dyspnea, edema, light headedness, other - Medications/Allergies Allergies/Adverse Reactions: Allergies Allergy/AdvReac Type Severity Reaction Status Date / Time No Known Drug Allergies Allergy Verified 03/05/18 23:12 Medications: Current Medications Acetaminophen (Tylenol) 650 mg PO Q4H PRN PRN Reason: Headache/Fever/Mild Pain (1-3) Hydrocodone Bitart/Acetaminophen ([place] 5/325) 1 tab PO Q6H PRN PRN Reason: Moderate Pain (4-6) Last Admin: 03/18/18 21:51 Dose: 1 tab Albuterol/Ipratropium (Duoneb) 3 ml NEB [id number] [facility] Last Admin: 03/19/18 21:43 Dose: 3 ml Aspirin (Ecotrin) 81 mg PO DAILY [facility] Last Admin: 03/19/18 09:00 Dose: 81 mg Atorvastatin Calcium (Lipitor) 20 mg PO HS [facility] Last Admin: 03/19/18 21:19 Dose: 20 mg Famotidine (Pepcid) 20 mg PO 2100 [facility] Last Admin: 03/19/18 21:20 Dose: 20 mg Guaifenesin (Mucinex) 600 mg PO Q12HR [facility] Last Admin: 03/19/18 21:22 Dose: Not Given Hydrocortisone Sodium Succinate (Solu-Cortef) 50 mg IVP Q6HR [facility] Stop: 03/26/18 12:01 Last Admin: 03/19/18 17:32 Dose: 50 mg Sodium Bicarbonate 150 meq/ (Dextrose/Water) 1,150 mls @ 50 mls/hr IV .Q23H [facility] Last Admin: 03/19/18 13:32 Dose: 1,150 mls Cefepime HCl 1 gm/ Sodium (Chloride) 100 mls @ 200 mls/hr IVPB 0600,1800 [facility] Last Admin: 03/19/18 17:33 Dose: 100 mls Metronidazole 500 mg/ Device 100 mls @ 100 mls/hr IVPB 0400,1200,2000 [facility] Last Admin: 03/19/18 21:26 Dose: 100 mls Norepinephrine Bitartrate (Levophed) 250 mls @ 0 mls/hr IVPB PRN PRN; Protocol PRN Reason: To maintain MAP > 65 Last Admin: 03/19/18 14:06 Dose: 250 mls Vancomycin HCl 750 mg/ Sodium (Chloride) 250 mls @ 250 mls/hr IVPB 1999 [facility] Last Admin: 03/19/18 21:10 Dose: 250 mls Mineral Oil/White Petrolatum (Systane Nighttime Eye Ointment) 0 gm EA EYE PRN PRN PRN Reason: Dry Eyes Miscellaneous Medication (Pharmacy To Dose) 1 each IVPB ONE PRN PRN Reason: Pharmacy to dose Stop: 04/16/18 19:01 Ondansetron HCl (Zofran Odt) 4 mg PO Q6H PRN PRN Reason: Nausea/Vomiting Ondansetron HCl (Zofran) 4 mg IVP Q6H PRN PRN Reason: Nausea/Vomiting Saccharomyces Boulardii (Florastor) 250 mg PO BID [facility] Last Admin: 03/19/18 21:20 Dose: 250 mg Senna/Docusate Sodium (Senokot S) 2 tab PO BID PRN PRN Reason: Constipation Sodium Chloride (Flush - Normal Saline) 10 ml IVF PRN PRN PRN Reason: Saline Flush Ticagrelor (Brilinta) 90 mg PO BID [facility] Last Admin: 03/19/18 21:22 Dose: Not Given Vancomycin HCl (First Vancomycin) 250 mg PO Q6HR [facility] Last Admin: 03/19/18 17:28 Dose: 250 mg Zolpidem Tartrate (Ambien) 5 mg PO HSPRN PRN PRN Reason: Insomnia Last Admin: 03/18/18 21:51 Dose: 5 mg
[2018-03-19] MEDS: Zolpidem Tartrate 5 MG TAB PO PRN (23:28)
[2018-03-20] MEDS: HYDROcodone/Acetaminophen 5/325 mg Tablet PO PRN ×2 (02:36→20:23)
[2018-03-20] MEDS: metroNIDAZOLE 500 MG in Premix Bag 1 BAG IVPB SCH ×3 (03:44→20:26)
[2018-03-20 04:47] LABS: Band 18 % (5-11); Hemoglobin 8.1 g/dL (14.0-18.0); Lymphocytes 2 % (21-51); MDiff Complete? YES; Mean Corpuscular HGB CONC 30.8 g/dL (32.0-36.0); Mean Corpuscular Hemoglobin 29.4 pg (27.0-31.0); Mean Corpuscular Volume 95.3 fL (78.0-98.0); Mean Platelet Volume 7.6 fL (7.4-10.4); Monocytes 1 % (0-10); Neutrophil 79 % (42-75); PLT Morphology Comment Appears Adequate; Platelet Count 323 thou/uL (130-400); RBC Distribution Width 13.8 % (11.5-14.5); Red Blood Cell (RBC) Count 2.76 mill/uL (4.70-6.10); White Blood Cell (WBC) Count 12.2 thou/uL (4.8-10.8)
[2018-03-20 04:56] LABS: ALT (SGPT) 37 U/L (8-55); AST (SGOT) 38 U/L (5-34); Albumin 2.4 g/dL (3.4-4.8); Alkaline Phosphatase 85 U/L (40-150); Anion Gap 13 mmol/L (10-20); BUN (Urea Nitrogen) 55 mg/dL (8.4-25.7); Bilirubin, Total 0.6 mg/dL (0.2-1.2); Calc. Creatinine Clearance 53 mL/min (70-130); Calcium 8.4 mg/dL (7.8-10.44); Carbon Dioxide 37 mmol/L (23-31); Chloride 95 mmol/L (98-107); Estimated GFR-MDRD 68; Globulin 3.6 g/dL (2.4-3.5); Glucose 159 mg/dL (80-115); Phosphorus 3.7 mg/dL (2.3-4.7); Potassium 4.2 mmol/L (3.5-5.1); Sodium 141 mmol/L (136-145)
[2018-03-20] MEDS: Cefepime 1 GM in Sodium Chloride 0.9% 100 ML IVPB SCH ×2 (05:59→18:01)
[2018-03-20] MEDS: Hydrocortisone Sod Succ/PF 100 mg/2 ml Vial IVP SCH ×3 (05:59→18:02)
--- NOTE | 2018-03-20 07:04 | PRG ---
DATE OF SERVICE: 03/19/2018 SUBJECTIVE: Mr. Redmond unfortunately has been readmitted for hypotension, nausea, vomiting, and abdominal discomfort. Initially, it was felt he was septic. This was similar to his presentation before. His symptoms likely represent hypoperfusion. He is awake and alert. No current complaints. Blood pressures are in the 100s, on Levophed. OBJECTIVE: VITAL SIGNS: Blood pressure 95/65, pulse 106, and temperature afebrile. GENERAL: The patient appears cachectic. NEUROLOGIC: The patient is alert and oriented x3 with no focal neurologic deficits. HEENT: Sclerae without icterus. Mouth has moist mucous membranes with normal pallor. NECK: No JVD. Carotid upstroke brisk. No bruits bilaterally. LUNGS: Clear to auscultation with unlabored respirations. BACK: No scoliosis or kyphosis. CARDIAC: Regular rate and rhythm with normal S1 and S2. No S3 or S4 noted. No significant rubs, murmurs, thrills, or gallops noted throughout the precordium. PMI is not displaced. There is no parasternal heave. ABDOMEN: Soft, nontender, nondistended. No peritoneal signs present. No hepatosplenomegaly. No abnormal striae. EXTREMITIES: 2+ femoral and 2+ dorsalis pedis pulses. No cyanosis, clubbing, or edema. SKIN: No gross abnormalities. PERTINENT LABORATORY DATA: Hemoglobin 6.8. Creatinine 1.9. Troponin 0.9. IMPRESSION: 1. Acute systolic heart failure. 2. Cardiac cachexia. 3. Coronary artery disease. 4. Status post stent placement. RECOMMENDATIONS: Mr. Redmond continues to decline despite all efforts. I am not been able to proceed with medical therapy aggressively due to hypotension. His albumin level has been low. He appears to be cachectic. A full workup for cancer was performed during his last hospitalization and was negative. I also discussed with OLIVER Capellan on potential LVAD or transplant. Given the above, he is not felt to be an appropriate candidate. At this point, I feel like options are limited. I did discuss this with Mr. Redmond on his prior hospitalization, as well as with his family. Continue current supportive care. Prognosis appears poor. Job ID: [id number]
[2018-03-20] MEDS: Vancomycin HCl 25 MG/ML Oral PO SCH (07:37)
[2018-03-20] MEDS: TICAGRELOR 90 MG TABLET PO SCH ×2 (08:28→20:25)
[2018-03-20] MEDS: guaiFENesin ER 600 MG TAB PO SCH ×2 (08:28→20:25)
[2018-03-20] MEDS: Aspirin 81 mg Enteric Coated Tablet PO SCH (08:28)
[2018-03-20] MEDS: Saccharomyces boulardii 250 MG CAP PO SCH ×2 (08:28→20:23)
--- NOTE | 2018-03-20 08:59 | PRG ---
DATE OF SERVICE: 03/20/2018 SUBJECTIVE: This morning in ICU, feels weak, tired, short of breath. OBJECTIVE: VITAL SIGNS: Saturations are 97% on 3 L, temperature is 97.9, pulse is 99, respirations 19, and blood pressure 120/75. CHEST: Decreased breath sounds. No wheezing. CARDIAC: Normal S1 and S2. No gallops. ABDOMEN: No masses. LABORATORY DATA: His BUN is 55. Lytes are normal. H and H are 8 and 26. Platelet cell count is normal. IMPRESSION: 1. End-stage cardiomyopathy. 2. Large bilateral pleural effusions. 3. Severe deconditioning. PLAN: No reason to suspect sepsis. Will discontinue the vancomycin. Continue cardiac care. Continue PT supportive care. Overall prognosis is grave. I am concerned about tapping his pleural effusion, more than likely is going to reoccur rapidly. One hour of critical time. Job ID: [id number]
[2018-03-20 11:14] LABS: Base Excess (BEa) 14.5 mEq/L (-2.0 to +3.0); Calcium, Ionized 1.11 mmol/L (1.12-1.30); Carboxyhemoglobin (COHb) 1.6 gm% (0.0-3.0); Hemoglobin (Hb) 8.1 g/dL (14.0-18.0); O2 Tension (PaO2) 115.8 mmHg (> 70.0); Potassium - ABG Lab 3.89 mmol/L (3.70-5.30); pH, Arterial 7.36 (7.35-7.45)
[2018-03-20 11:15] LABS: CO2 Tension 75.8 mmHg (35.0-45.0)
[2018-03-20 11:16] LABS: Puncture Site RRA
[2018-03-20] MEDS ORDERED: Dextrose 5 % And 0.9 % NaCl 1,000 ML IV SCH (11:45)
--- NOTE | 2018-03-20 13:33 | EKG ---
Test Reason : Blood Pressure : / mmHG Vent. Rate : 097 BPM Atrial Rate : 097 BPM P-R Int : 234 ms QRS Dur : 132 ms QT Int : 402 ms P-R-T Axes : 044 -69 105 degrees QTc Int : 510 ms Sinus rhythm with 1st degree A-V block Left axis deviation Non-specific intra-ventricular conduction block Cannot rule out Septal infarct , age undetermined Possible Lateral infarct , age undetermined Abnormal ECG Confirmed by ROMMEL BRANDT, ROBERTO ([id number]), editor trade journal [employer] ([id number]) on 03/20/2018 1:32:56 PM Referred By: Confirmed By:ROBERTO CARNEY MD
[2018-03-20] MEDS: Atorvastatin Calcium 20 MG TAB PO SCH (20:25)
[2018-03-20] MEDS: Famotidine 20 MG TAB PO SCH (20:25)
[2018-03-20 20:45] VITALS: TEMP 97.4
--- NOTE | 2018-03-21 03:44 | DIS ---
DATE OF ADMISSION: 03/17/2018 DATE OF DISCHARGE: 03/20/2018 DISCHARGE DISPOSITION: The patient will be discharged to inpatient hospice later today. ALLERGIES: NO KNOWN DRUG ALLERGIES. DISCHARGE CONDITION: The patient was seen and examined on the day of discharge. DISCHARGE MEDICATION: Per Hospice. BRIEF HOSPITAL COURSE: The patient is a 72-year-old male with hypertension, chronic systolic heart failure, and coronary artery disease, presented to the hospital with generalized weakness, nausea, vomiting, and diarrhea along with hypotension and tachycardia at the inpatient rehab facility. Please refer to the history and physical for further details. The patient was admitted to the intensive care unit with a diagnosis of severe sepsis with acute organ dysfunction/septic shock secondary to pneumonia with possible C. difficile colitis. He was started on broad-spectrum antibiotics along with oral vancomycin and IV Flagyl. The patient was seen by Pulmonary, Dr. Schreiber. Due to overall worsening, the family decided on Inpatient Hospice. The patient also required Levophed drip due to significant hypotension. FINAL DIAGNOSES: 1. Severe sepsis with acute organ dysfunction/septic shock secondary to pneumonia. 2. Suspected Clostridium difficile colitis. 3. Acute kidney injury on chronic kidney disease stage 2. 4. Lactic acidosis. 5. Pleural effusion. 6. Elevated troponins probably secondary to demand ischemia. 7. Severe protein calorie malnutrition. 8. Hyperkalemia. 9. Abnormal liver function tests probably secondary to passive hepatic congestion. 10. Chronic systolic heart failure. Patient was not discharged on ACEI/ARB/ Aldactone or Beta blockers due to hospice. 11. Coronary artery disease. 12. Significant weight loss recently of unclear etiology. 13. Physical deconditioning. 14. Chronic obstructive pulmonary disease. 15. Chronic anemia. 16. Sacral pressure ulcer, stage III, present on admission. Job ID: [id number] [facility]
== END 2018-03-20 22:17 | disposition hospice, inpatient (51) | DRG 871 ==
LOC: ERS 12:22 → CCU 16:28 → ERHOLD 17:22 → CCU 17:39
PROVIDERS: ADMIT Internal Medicine; ATTEND Internal Medicine
DX: A41.9 Sepsis, unspecified organism (principal); L89.153 Pressure ulcer of sacral region, stage 3; R65.21 Severe sepsis with septic shock; E43 Unspecified severe protein-calorie malnutrition; E87.2 Acidosis; Z68.1 Body mass index [BMI] 19.9 or less, adult; I50.22 Chronic systolic (congestive) heart failure; I42.9 Cardiomyopathy, unspecified; R64 Cachexia; N17.9 Acute kidney failure, unspecified; I24.8 Other forms of acute ischemic heart disease; E87.5 Hyperkalemia; I25.10 Atherosclerotic heart disease of native coronary artery without angina pectoris; Z79.82 Long term (current) use of aspirin; J44.9 Chronic obstructive pulmonary disease, unspecified; D64.9 Anemia, unspecified; E86.9 Volume depletion, unspecified
CPT/HCPCS: 36415; 36430; 36556; 71045; 80053; 80202; 82533; 82553; 82805; 83605; 83735; 83880; 84100; 84484; 85007; 85027; 86850; 86900; 86901; 87086; 87804; 93005; 94640; 96361; 96365; 96366; 96367; J0692; J1720; J1940; J1956; J3370; J7050; J7070; J7620; P9016